=== PATIENT | female | born 1945 | race Caucasian/White ===

== ENCOUNTER 2023-05-27 00:24 | Inpatient (IN) ==
--- NOTE | 2023-05-27 00:28 | DR.AMS ---
HPI Time Seen Time Seen by Provider: 05/27/23 00:28 Complaint Cheif Complaint Doctors Comments: Patient was constipated and 2 days ago her relative gave her milk of magnesia for 2 days.Patient has had diarrhea for the past 3 days and today she was seeing things,thought she was in [facility]. Did not remember where her bathroom was.Patient has not been eating well,drinking enough fluids for the past 2-3 days.Patient denies: headache,chest pain,abdl pain,back pain. ROS Review of Systems Constitutional: No Symptoms Reported Eyes: No Symptoms Reported ENTM: No Symptoms Reported Respiratoy: No Symptoms Reported Cardiovascular: No Symptoms Reported Gastrointestinal/Abdominal: Constipation and Diarrhea; negative Vomiting Genitourinary: No Symptoms Reported Neurological: See HPI Musculoskeletal: No Symptoms Reported Integumentary: No Symptoms Reported Hematologic/Lymphatic: No Symptoms Reported Endocrine: No Symptoms Reported Psychiatric: No Symptoms Reported All Other Systems: Reviewed and Negative PE Vitals Vital Signs: Temp Pulse Resp BP Pulse Ox O2 Del Method 05/27/23 05:03 101 H 20 99 05/27/23 04:40 105 H 23 98 05/27/23 04:15 123/57 05/27/23 04:15 100 H 19 99 05/27/23 04:00 98 H 20 99 05/27/23 03:30 97 H 18 98 05/27/23 03:19 101 H 21 100 05/27/23 03:19 125/60 05/27/23 03:17 105 H 23 99 05/27/23 03:00 97 H 21 99 05/27/23 03:00 112/57 05/27/23 02:45 121/58 05/27/23 02:45 106 H 21 100 05/27/23 02:30 105/54 05/27/23 02:30 96 H 05/27/23 02:15 98 H 21 100 05/27/23 02:15 122/57 05/27/23 02:00 94 H 22 98 05/27/23 02:00 109/53 05/27/23 01:45 93 H 21 98 05/27/23 01:45 111/54 05/27/23 01:31 132 H 15 05/27/23 01:18 93 H 27 H 100 05/27/23 01:18 120/57 05/27/23 01:15 96 H 28 H 08/17/23 01:08 100 H 27 H 98 05/27/23 00:45 92 H 20 98 05/27/23 00:45 109/54 05/27/23 00:30 95 H 17 100 05/27/23 00:30 112/53 05/27/23 00:29 96 H 21 100 05/27/23 00:26 98.6 F 100 H 19 118/59 100 Room Air General Limitations: Language Barrier General Appearance: Alert Head Head Exam: Normal Inspection Eyes Eye exam: Normal Appearance ENT ENT Exam: Normal Exam External Ear Exam: Normal External Inspection Nose Exam: Normal Nose Exam Mouth Exam: Normal Inspection Throat Exam: Normal Inspection Neck Neck Exam: Normal Inspection Chest Chest Inspection: Normal Inspection Respiratory Respiratory Exam: Normal Lung Sounds Bilat Respiratory Exam: Bilateral: Clear to Auscultation Cardiovascular Cardiovascular Exam: Regular Rate and Normal Rhythm Abdominal Exam Abdominal Exam: Normal Inspection, Normal Bowel Sounds and Soft Extremities Extremities Exam: Normal Inspection Back Back Exam: Normal Inspection Neurological Neurological Exam: Alert, Oriented X3 and CN II-XII Intact Psychological Psychiatric Exam: Normal Affect and Normal Mood Skin Skin Exam: Warm, Dry, Intact and Normal Color MDM Differential Diagnosis Metabolic: Dehydration and Hyponatremia (hypokalemia) Infectious: UTI COURSE Treatment Treatment: Patient was brought to a monitored room and iv acess was established patient has CHANDRA and dehydration. She received NS 1500ml iv in the Ed. 05:[address] Holt( patient's Pcp). He has accepted her to his service for further evaluation.Patient's family is concerned because she has not been eating and drinking for the past few days. ROR Labs Reviewed Laboratory Results Reviewed?: Yes 05/27/23 01:16 05/27/23 01:16 Laboratory: WBC 18.7 X10^3/uL (3.6-10.0) H 05/27/23 01:16 RBC 3.99 X10^6/uL (3.5-5.4) 05/27/23 01:16 Hgb 11.1 g/dL (12.0-16.0) L 05/27/23 01:16 Hct 32.7 % (36.0-47.0) L 05/27/23 01:16 MCV 82.0 fL (80.0-100.0) 05/27/23 01:16 MCH 27.7 pg (27.0-34.0) 05/27/23 01:16 MCHC 33.8 g/dL (33.0-35.0) 05/27/23 01:16 RDW 14.9 % (11.6-16.5) 05/27/23 01:16 Plt Count 466 X10^3/uL (150.0-450.0) H 05/27/23 01:16 Plt Count Comment Increased (ADEQUATE) A 05/27/23 01:16 MPV 8.3 fL (7.4-11.0) 05/27/23 01:16 Neut % (Auto) 80.9 % (42.0-75.0) H 05/27/23 01:16 Lymph % (Auto) 9.1 % (21.0-51.0) L 05/27/23 01:16 Bates % (Auto) 9.5 % (0.0-13.0) 05/27/23 01:16 Eos % (Auto) 0.1 % (0.9-2.9) L 05/27/23 01:16 Baso % (Auto) 0.4 % (0.2-1.0) 05/27/23 01:16 Neut # (Auto) 15.2 x10^3/uL (2.2-4.8) H 05/27/23 01:16 Lymph # (Auto) 1.7 X10^3/uL (1.3-2.9) 05/27/23 01:16 Bates # (Auto) 1.8 x10^3/uL (0.3-0.8) H 05/27/23 01:16 Eos # (Auto) 0.0 x10^3/uL (0.0-0.2) 05/27/23 01:16 Baso # (Auto) 0.1 X10^3/uL (0.0-0.1) 05/27/23 01:16 Absolute Nucleated RBC 0.0 /100WBC 05/27/23 01:16 Total Counted 100 05/27/23 01:16 Neutrophils % (Manual) 85 % (39-76) H 05/27/23 01:16 Lymphocytes % (Manual) 4 % (13-43) L 05/27/23 01:16 Monocytes % (Manual) 11 % (4-9) H 05/27/23 01:16 Plt Morphology Comment Normal (NORMAL) 05/27/23 01:16 RBC Morphology Normal (NORMAL) 05/27/23 01:16 Sodium 132 mmol/L (136-145) L 05/27/23 01:16 Corrected Sodium TNP 05/27/23 01:16 Potassium 3.9 mmol/L (3.5-5.1) 05/27/23 01:16 Chloride 95 mmol/L (98-107) L 05/27/23 01:16 Carbon Dioxide 24.2 mmol/L (21-32) 05/27/23 01:16 BUN 49 mg/dL (7-18) H 05/27/23 01:16 Creatinine 2.17 mg/dL (0.55-1.02) H 05/27/23 01:16 Est GFR (MDRD) Af Amer 28 (>60) L 05/27/23 01:16 Est GFR (MDRD) Non-Af 23 (>60) L 05/27/23 01:16 Glucose 79 mg/dL (65-99) 05/27/23 01:16 Calcium 9.1 mg/dL (8.5-10.1) 05/27/23 01:16 Corrected Calcium TNP 05/27/23 01:16 Total Bilirubin 0.90 mg/dL (0.2-1.0) 05/27/23 01:16 AST 116 Units/L (15-37) H 05/27/23 01:16 ALT 18 Units/L (12-78) 05/27/23 01:16 Alkaline Phosphatase 101 Units/L (46-116) 05/27/23 01:16 Total Protein 7.0 g/dL (6.4-8.2) 05/27/23 01:16 Albumin 4.0 g/dL (3.4-5.0) 05/27/23 01:16 Globulin 3.0 g/dL (2.5-4.5) 05/27/23 01:16 Albumin/Globulin Ratio 1.3 Ratio (1.1-2.1) 05/27/23 01:16 Opioid Opioid Risk Tool Total: 0 Total Score Risk Category: Low Risk Copyright: Eyal TAYLOR predicting aberrant behaviors Discharge Plan Diagnosis Discharge Problem: CHANDRA (acute kidney injury), Acute dehydration Discharge Plan Patient Disposition: ADMITTED INPATIENT Condition: Stable Health Concerns: Post Hospitalization: new medications and changes needed to prevent readmission or further decline. Pt educated and given instructions on all concerns. Plan of Treatment: Continue with present treatment and follow up plan. Pt is to keep follow up appointment as instructed and take medications as ordered. Follow ups/Referrals Follow ups/Referrals: Blake Holt [Primary Care Provider] - 3 days Instructions Stand Alone Forms: Post Hospital Follow Up Care
[2023-05-27] MEDS ORDERED: NS 500 ML IV 500 ML IV ONE ×2 (01:05→01:06)
[2023-05-27 01:24] LABS: HEMOGLOBIN 11.1 g/dL (12.0-16.0); LYMPHOCYTES # (AUTO) 1.7 X10^3/uL (1.3-2.9); MONOCYTES # (AUTO) 1.8 x10^3/uL (0.3-0.8); NEUTROPHILS % (AUTO) 80.9 % (42.0-75.0)
[2023-05-27 01:40] LABS: ALANINE AMINOTRANSFERASE 18 Units/L (12-78); ALKALINE PHOSPHATASE 101 Units/L (46-116); ASPARTATE AMINO TRANSFERASE 116 Units/L (15-37); BLOOD UREA NITROGEN 49 mg/dL (7-18); CALCIUM 9.1 mg/dL (8.5-10.1); CARBON DIOXIDE 24.2 mmol/L (21-32); CHLORIDE 95 mmol/L (98-107); CREATININE 2.17 mg/dL (0.55-1.02); GLUCOSE 79 mg/dL (65-99); POTASSIUM 3.9 mmol/L (3.5-5.1); SODIUM 132 mmol/L (136-145); eGFR NON BLACK RACES 23 (>60)
[2023-05-27 01:41] LABS: BASOPHILS # (AUTO) 0.1 X10^3/uL (0.0-0.1); BASOPHILS % (AUTO) 0.4 % (0.2-1.0); EOSINOPHILS % (AUTO) 0.1 % (0.9-2.9); HEMATOCRIT 32.7 % (36.0-47.0); LYMPHOCYTES % (AUTO) 9.1 % (21.0-51.0); MEAN CORPUSCULAR HEMOGLOBIN 27.7 pg (27.0-34.0); MEAN CORPUSCULAR HGB CONC 33.8 g/dL (33.0-35.0); MEAN PLATELET VOLUME 8.3 fL (7.4-11.0); MONOCYTES % (AUTO) 9.5 % (0.0-13.0); NEUTROPHILS # (AUTO) 15.2 x10^3/uL (2.2-4.8); PLATELET COUNT 466 X10^3/uL (150.0-450.0); RED BLOOD COUNT 3.99 X10^6/uL (3.5-5.4); RED CELL DISTRIBUTION WIDTH 14.9 % (11.6-16.5); WHITE BLOOD COUNT 18.7 X10^3/uL (3.6-10.0)
[2023-05-27 01:56] LABS: PLATELET MORPHOLOGY COMMENT NORMAL (NORMAL)
[2023-05-27] MEDS ORDERED: NS 1,000 ML IV 1,000 ML ONE (02:00)
[2023-05-27] MEDS ORDERED: NS 1,000 ML IV 1,000 ML IV ONE (02:00)
[2023-05-27] MEDS: NS 1,000 ML IV 1,000 ML IV SCH (07:39)
[2023-05-27 09:14] LABS: BILIRUBIN,URINE NEGATIVE (NEGATIVE); BLOOD/HEMOGLOBIN,URINE 3+ (NEGATIVE); GLUCOSE, URINE NEGATIVE (NEGATIVE); KETONES,URINE 2+ (NEGATIVE); LEUKOCYTE ESTERASE ,URINE NEGATIVE (NEGATIVE); NITRITES,URINE NEGATIVE (NEGATIVE); PROTEIN,URINE 3+ (NEGATIVE); UROBILINOGEN,URINE NORMAL (NORMAL)
[2023-05-27 09:15] LABS: APPEARANCE,URINE SLIGHTLY HAZY (CLEAR); COLOR,URINE YELLOW (YELLOW)
[2023-05-27 09:24] LABS: BACTERIA,URINE TRACE /HPF (NEGATIVE); GRANULAR CASTS,URINE FEW /LPF (NEGATIVE); HYALINE CASTS, URINE MODERATE /LPF (NEGATIVE); RBC,URINE 0-2 /HPF (0-3); SQUAMOUS EPITHELIAL CELL,UR RARE /HPF (NEGATIVE)
[2023-05-27] MEDS: LOVENOX INJ 30 MG SYR SC SCH (10:17)
[2023-05-27] MEDS: CIPRO IV 400 MG PREMIX* 400 MG/200 ML IV.SOLN. IV SCH (11:06)
[2023-05-27] MEDS: FLAGYL IV PREMIX 500 MG BAG 500 MG/100 ML BAG IV SCH ×2 (13:22→21:36)
[2023-05-27] MEDS: PROTONIX INJ 40 MG VIAL IVP SCH ×2 (14:29→20:46)
[2023-05-27] MEDS: PEPCID 20 MG VIAL 20 MG in NS 50 ML IV 50 ML IV SCH (14:29)
[2023-05-27] MEDS: MIRALAX POWDER (1 DOSE 17 G) PO SCH (19:03)
--- NOTE | 2023-05-27 19:14 | DR.H&P ---
H&P - History & Physical for Day of: H&P Date: 05/27/23 - Chief Complaint Chief Complaint: WEAKNESS, DIARRHEA, DECREASED APPETITE, WEAKNESS, AMS - History of Present Illness History of Present Illness: IS A 77 YEAR OLD PATIENT OF OURS. SHE HAS A PMH OF ESSENTIAL TREMORS, HYPERLIPIDEMIA, HTN, FIBROMYALGIA, ANXIETY, C- SECTION, AND HYSTERECTOMY. SHE PRESENTED TO THE ER WITH COMPLAINTS OF DIARRHEA, DECREASED APPETITE, WEAKNESS, AND ALTERED MENTAL STATUS FOR THE PAST 2-3 DAYS. SHE REPORTS THAT PRIOR TO THE DIARRHEA, SHE WAS CONSTIPATED. SHE TOOK MILK OF MAGNESIA AND HAS HAD DIARRHEA SINCE THEN. SHE DENIES HEADACHE, CHEST PAIN, ABD OMINAL PAIN, OR BACK PAIN. ON ARRIVAL TO THE ER, HER VITALS WERE: 98.5-260-76-100%-118/59. LABS WERE OBTAINED. WBC 18.7, RBC 3.99, HGB 11.1, HCT 32.7, PLT COUNT 466, SODIUM 132, POTASSIUM 3.9, CHLORIDE 95, CARBON DIOXIDE 24.2, BUN 49, CREATININE 2.17, GLUCOSE 79, CALCIUM 9.1, TOTAL BILI 0.90, AST 116, ALT 18, ALK PHOS 101, TOTAL PROTEIN 7.0, ALBUMIN 4.0. URINALYSIS WAS OBTAINED AND REVEALED: WBC 0-2, RBC 0-2, BACTERIA TRACE, LEUKOCYTES NEGATIVE. STOOL IS POSITIVE FOR WHITE CELLS AND H.PYLORI. CDIFF AND OCCULT BLOOD ARE NEGATIVE. STOOL CULTURE WAS SET UP. IN THE ER, SHE WAS GIVEN A NORMAL SALINE BOLUS X 2 LITERS. SHE WAS ADMITTED TO THE HOSPITAL FOR FURTHER EVALUATION AND TREATMENT OF ACUTE KIDNEY INJURY, LEUKOCYTOSIS, INTRACTABLE DIARRHEA, H.PYLORI. SHE WAS STARTED ON NORMAL SALINE AT 75 ML/HR, CIPRO 400MG IV DAILY, FLAGYL 500MG IV TID, PROTONIX 40MG IV BID, FAMOTIDINE 20MG DAILY, LOVENOX 30MG DAILY. WE WILL CHECK AN ABDOMINAL SERIES. WE WILL REVIEW HER HOME MEDICATIONS WHEN THEY ARE A VAILABLE TO US. OTHERWISE, WE WILL FOLLOW UP WITH AM LABS AND CONTINUE TO MONITOR. TIME SPENT ON CLINICAL ASSESSMENT, REVIEWING LABS AND IMAGING, DECISION MAKING, AND DOCUMENTATION GREATER THAN 75 MINUTES. - Past Medical History Past Medical History: Anxiety, Dyslipidemia, Hypertension Additional Medical History: ESSENTIAL TREMORS, FIBROMYALGIA - Past Surgical History Surgical History: , Hysterectomy - Family History Family Medical History: Cancer, Hypertension - Social History Does patient currently use any type of tobacco product: No Have you used tobacco products in the last 12 months: No Type of Tobacco Use: None Does any household member use tobacco: No Alcohol Use: None Drug Use: None - Review of Systems Constitutional: Weakness. denies: Fever, Chills Eyes: No Symptoms Reported ENT: No Symptoms Reported Respiratory: Cough Cardiovascular: No Symptoms Reported Gastrointestinal: See HPI, Diarrhea, Constipation. denies: Nausea, Vomiting, Abdominal Pain, Melena, Hematochezia Genitourinary: No Symptoms Reported Musculoskeletal: No Symptoms Reported Skin: No Symptoms Reported Neurological: Weakness - Physical Exam Vital Signs: Vital Signs Temperature 98 F Pulse Rate [Left Brachial] 92 Respiratory Rate 18 Blood Pressure [Left Arm] 94/47 Oriented: Normal Eyes: Normal Ear: Normal Nose: Normal Throat: Normal Respiratory: Diminished Throughout Cardiovascular: Normal : Normal Auscultation: Bowel Sounds: Normal Palpation: Normal Tenderness: Normal Skin: Normal Musculoskeletal: Normal Psychiatric: Normal Mood Description: Calm Affect: Normal Speech Pattern: Clear - Assessment/Plan (1) CHANDRA (acute kidney injury) Status: Acute Plan: ADMIT, NORMAL SALINE AT 75 ML/HR, CIPRO 400MG IV DAILY, FLAGYL 500MG IV TID, PROTONIX 40MG IV BID, FAMOTIDINE 20MG DAILY, LOVENOX 30MG DAILY. REVIEW HOME MEDS (2) Acute dehydration Status: Acute (3) Leukocytosis Qualifiers: Leukocytosis type: unspecified Qualified Code(s): D72.829 - Elevated white blood cell count, unspecified Status: Acute (4) Intractable diarrhea Status: Acute Plan: STOOL CULTURES PENDING (5) H. pylori infection Status: Acute Plan: PEPCID IV DAILY, PROTONIX IV BID (6) Altered mental status Qualifiers: Altered mental status type: transient alteration of awareness Qualified Code(s): R40.4 - Transient alteration of awareness Status: Acute (7) Generalized weakness Status: Acute (8) HTN (hypertension) Qualifiers: Hypertension type: primary hypertension Qualified Code(s): I10 - Essential (primary) hypertension Status: Chronic Plan: STABLE. CONTINUE TO MONITOR (9) Hyperlipidemia Qualifiers: Hyperlipidemia type: mixed hyperlipidemia Qualified Code(s): E78.2 - Mixed hyperlipidemia Status: Chronic (10) Anxiety Status: Chronic - Allergies Allergies/Adverse Reactions: Allergies Allergy/AdvReac Type Severity Reaction Status Date / Time No Known Allergies Allergy Verified 05/27/23 01:12
--- NOTE | 2023-05-27 19:38 | RAD ---
HISTORYPT C/O ABDOMINAL PAINSTUDYACUTE ABDOMEN SERIESCOMPARISONNone.TECHNIQUEA single frontal view of the chest and supine and upright views of the abdomen were obtained.FINDINGSThere is mild cardiomegaly. The tracheobronchial tree is unremarkable. The lungs are clear. The osseous structures within the chest are intact.There is a nonobstructive, nonspecific bowel gas pattern. There is no free air under the hemidiaphragms. There is peripheral atherosclerotic changes noted in the left upper quadrant suggestive of a prominent splenic artery aneurysm measuring approximately 1.2 cm.There are surgical clips seen within the right hemipelvis.There is rotatory mild dextroscoliosis of the mid to upper lumbar spine. 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
[2023-05-27] MEDS: COLACE CAP 100 MG PO SCH ×2 (20:46→20:47)
[2023-05-27] MEDS ORDERED: PATIENT'S HOME MEDICATION (Alprazolam 0.5 mg tablet) PO PRN (21:15)
--- NOTE | 2023-05-27 21:22 | CT ---
HISTORYAMSSTUDYBRAIN W/O CONCOMPARISONNone available.TECHNIQUEAxial non-contrast images of the head were obtained with coronal and sagittal reformats provided.Radiation dose: 870.14 mGy-cm total DLPFINDINGSNo abnormal areas of acute attenuation in the brain parenchyma.Cabrera-white differentiation remains intact.No intracranial, extra-axial, fluid collection.No hemorrhage.Periventricular chronic microvascular disease.No mass effect or midline shift.Incidental meningioma in the posterior right parietal region measuring 1.25 x 1 cm.Age related brain parenchymal global atrophy.No ventriculomegaly.No acute fracture.Sinuses are well aerated.Mastoid air cells are well aerated.Globes and intra-orbital contents are unremarkable.IMPRESSIONNo acute intracranial abnormality identified.Electronically signed by: Stiven Carrillo (May 27, 2023 21:20:52)
[2023-05-27] MEDS ORDERED: XANAX PO SCH (22:00)
[2023-05-28] MEDS: CRESTOR TAB 10 MG PO SCH ×2 (00:49→21:10)
[2023-05-28] MEDS: MIRAPEX TAB 0.25 MG PO SCH ×2 (00:49→21:10)
[2023-05-28] MEDS: REQUIP PO SCH ×3 (00:49→21:09)
[2023-05-28] MEDS: SINEMET CR 50/200 MG PO SCH ×5 (00:49→21:09)
[2023-05-28] MEDS: NS 1,000 ML IV 1,000 ML IV SCH (00:55)
[2023-05-28] MEDS: FLAGYL IV PREMIX 500 MG BAG 500 MG/100 ML BAG IV SCH ×3 (05:46→21:10)
[2023-05-28 06:14] LABS: BASOPHILS # (AUTO) 0.1 X10^3/uL (0.0-0.1); BASOPHILS % (AUTO) 0.9 % (0.2-1.0); EOSINOPHILS % (AUTO) 0.2 % (0.9-2.9); HEMATOCRIT 26.5 % (36.0-47.0); HEMOGLOBIN 8.8 g/dL (12.0-16.0); LYMPHOCYTES # (AUTO) 3.1 X10^3/uL (1.3-2.9); LYMPHOCYTES % (AUTO) 24.8 % (21.0-51.0); MEAN CORPUSCULAR HEMOGLOBIN 27.6 pg (27.0-34.0); MEAN CORPUSCULAR HGB CONC 33.4 g/dL (33.0-35.0); MEAN CORPUSCULAR VOLUME 82.6 fL (80.0-100.0); MONOCYTES # (AUTO) 1.8 x10^3/uL (0.3-0.8); MONOCYTES % (AUTO) 14.1 % (0.0-13.0); NEUTROPHILS # (AUTO) 7.6 x10^3/uL (2.2-4.8); PLATELET COUNT 365 X10^3/uL (150.0-450.0); RED CELL DISTRIBUTION WIDTH 14.7 % (11.6-16.5); WHITE BLOOD COUNT 12.6 X10^3/uL (3.6-10.0)
[2023-05-28 06:34] LABS: ALANINE AMINOTRANSFERASE 7 Units/L (12-78); ALBUMIN 2.8 g/dL (3.4-5.0); ALKALINE PHOSPHATASE 77 Units/L (46-116); ASPARTATE AMINO TRANSFERASE 70 Units/L (15-37); BLOOD UREA NITROGEN 37 mg/dL (7-18); CALCIUM 7.8 mg/dL (8.5-10.1); CARBON DIOXIDE 25.2 mmol/L (21-32); CHLORIDE 101 mmol/L (98-107); COR CA(FOR HYPOALB) 8.8 mg/dL (8.5-10.1); CREATININE 1.55 mg/dL (0.55-1.02); GLUCOSE 104 mg/dL (65-99); POTASSIUM 3.2 mmol/L (3.5-5.1); SODIUM 135 mmol/L (136-145); TOTAL PROTEIN 5.3 g/dL (6.4-8.2); eGFR NON BLACK RACES 35 (>60)
[2023-05-28] MEDS ORDERED: CONSULT PHARMACY - POTASSIUM & MAGNESIUM XX SCH (08:00)
[2023-05-28] MEDS: LOVENOX INJ 30 MG SYR SC SCH (09:23)
[2023-05-28] MEDS: PLAQUENIL PO SCH ×2 (09:24→21:09)
[2023-05-28] MEDS: COLACE CAP 100 MG PO SCH ×2 (09:24→11:55)
[2023-05-28] MEDS: PROTONIX INJ 40 MG VIAL IVP SCH ×2 (09:24→21:14)
[2023-05-28] MEDS: PEPCID 20 MG VIAL 20 MG in NS 50 ML IV 50 ML IV SCH (09:24)
[2023-05-28] MEDS: MIRALAX POWDER (1 DOSE 17 G) PO SCH (09:25)
[2023-05-28] MEDS: CIPRO IV 400 MG PREMIX* 400 MG/200 ML IV.SOLN. IV SCH (09:25)
[2023-05-28] MEDS: K-DUR TAB 20 MEQ PO SCH ×2 (09:36→12:24)
[2023-05-28] MEDS ORDERED: NS + KCL 20 MEQ/L 1,000 ML IV SCH (10:00)
[2023-05-28] MEDS ORDERED: XYLOCAINE OINT 5% TOP PRN (10:09)
[2023-05-28] MEDS ORDERED: TUCKS MEDICATED PAD TOP PRN (10:09)
[2023-05-28] MEDS ORDERED: PREPARATION H OINT RECTAL PRN (10:11)
[2023-05-28 10:31] VITALS: BMI 20.4
[2023-05-28] MEDS ORDERED: PHARMACY CONSULT - TPN XX SCH (11:00)
[2023-05-28] MEDS: NS + KCL 20 MEQ/L 1,000 ML IV SCH (11:59)
[2023-05-28] MEDS: ALBUMIN HUMAN 25%- 100 ML 100 ML IV SCH (12:23)
[2023-05-28] MEDS: CLINIMIX 4.25%-5% 1,000 ML with MVI INJ (ADULT) 10 ML IV SCH ×2 (12:24)
[2023-05-28] MEDS: XANAX PO PRN (12:24)
--- NOTE | 2023-05-28 13:20 | PCM.PROG ---
Progress Note - Progress Note for Day of Date of Exam: 05/28/23 - Subjective Subjective: IS CURRENTLY INPATIENT STATUS FOR TREATMENT OF ACUTE KIDNEY INJURY, DEHYDRATION, LEUKOCYTOSIS, INTRACTABLE DIARRHEA, H.PYLORI, AMS, AND GENERALIZED WEAKNESS. SHE HAS A PMH OF ESSENTIAL TREMORS, HYPERLIPIDEMIA, HTN, FIBROMYALGIA, ANXIETY, , AND HYSTERECTOMY. TODAY, SHE IS ALERT AND ORIENTED, LYING IN BED ON MORNING ROUNDS. SHE CONTINUES WITH WEAKNESS AND LOOSE STOOLS, BUT DOES ADMIT TO SLIGHT IMPROVEMENT IN SYMPTOMS SINCE ADMISSION. ON EXAMINATION, HEART IS REGULAR IN RATE AND RHYTHM. BILATERAL LUNGS ARE NOTED WITH DIMINISHED LUNG SOUNDS THROUGHOUT. ABDOMEN IS FLAT, SOFT, AND NON-TENDER WITH NORMAL BOWEL SOUNDS NOTED IN ALL QUADRANTS. GOOD RANGE OF MOTION NOTED TO UPPER AND LOWER EXTREMITIES WITH NO EDEMA NOTED. PATIENT DOES COMPLAIN OF PAIN FROM HEMORRHOIDS. SHE HAD VISITORS IN THE ROOM, THEREFORE, EXAMINATION OF HEMORRHOIDS WAS DEFERRED AT THAT TIME. HER VITALS THIS MORNING WERE: 98.1-89-18-96%-99/53. LABS WERE OBTAINED. WBC 12.6, RBC 3.20, HGB 8.8, HCT 26.5, PLT COUNT 365, SODIUM 135, POTASSIUM 3.2, CHLORIDE 101, BUN 37, CREATININE 1.55, GLUCOSE 104, CALCIUM 7.8, TOTAL BILI 0.5, AST 70, ALT 7, ALK PHOS 77, MAGNESIUM 2.5, CRP 33.10, TOTAL PROTEIN 5.3, ALBUMIN 2.8. STOOL AND BLOOD CULTURES ARE PENDING. AN ABDOMINAL SERIES WAS OBTAINED YESTERDAY AND REVEALED: There is mild cardiomegaly. The tracheobronchial tree is unremarkable. The lungs are clear. The osseous structures within the chest are intact. There is a nonobstructive, nonspecific bowel gas pattern. There is no free air under the hemidiaphragms. There is peripheral atherosclerotic changes noted in the left upper quadrant suggestive of a prominent splenic artery aneurysm measuring approximately 1.2 cm. There are surgical clips seen within the right hemipelvis. There is rotatory mild dext roscoliosis of the mid to upper lumbar spine. Marginal osteophyte formation of the upper lumbar spine is seen. BRAIN CT WITHOUT CONTRAST WAS OBTAINED AND WAS NEGATIVE FOR ACUTE INTRACRANIAL ABNORMALITY. SHE IS CURRENTLY RECEIVING NORMAL SALINE AT 75 ML/HR, CIPRO 400MG IV DAILY, FLAGYL 500MG IV TID, PROTONIX 40MG IV BID, FAMOTIDINE 20MG DAILY, LOVENOX 30MG DAILY. HER HOME MEDICATIONS OF XANAX, SINEMET, COLACE, PLAQUENIL, MIRAPEX, REQUIP, AND CRESTOR WERE RESUMED. TODAY, WE WILL CHANGE HER IV FLUIDS TO NORMAL SALINE WITH 40 MEQ KCL AT 40 ML/HR, ADD TPN, ALBUMIN 25% IV DAILY, AND A COMBINATION OF TUCKS PADS WITH PREPARATION H AND LIDOCAINE OINTMENT FIVE TIMES A DAY NEEDED FOR HEMORRHOIDAL PAIN. WE MAY LOOK AT HAVING HER SCOPED NEXT WEEK IF SYMPTOMS PERSIST. OTHERWISE, WE WILL CONTINUE WITH CURRENT PLAN OF CARE. WE PLAN TO FOLLOW UP WITH AM LABS AND CONTINUE TO MONITOR. TIME SPENT ON CLINICAL ASSESSMENT, REVIEWING LABS AND IMAGING, DECISION MAKING, AND DOCUMENTATION GREATER THAN 45 MINUTES. - Past Medical Family Social History Past Med/Fam/Surg Hx: No changes since H&P Allergies: Allergies No Known Allergies Allergy (Verified 05/27/23 01:12) - Review of Systems ROS: No change since H&P - Vital Signs and I&O's Vital Signs: Vital Signs Temperature 98.5 F Temperature 98.1 F Pulse Rate [Left Brachial] 87 Pulse Rate [Left Brachial] 89 Respiratory Rate 20 Respiratory Rate 18 Blood Pressure [Left Arm] 97/53 Blood Pressure [Left Arm] 99/53 O2 Sat by Pulse Oximetry 96 O2 Sat by Pulse Oximetry 96 Intake and Output: Intake & Output 05/26/23 05/27/23 05/28/23 05/29/23 11:59 11:59 11:59 11:59 Intake Total 1793 / 1793 Balance 1793 / 1793 - Physical Exam Oriented: Normal Eyes: Normal Ear: Normal Nose: Normal Throat: Normal Respiratory: Diminished Cardiovascular: Normal : Normal Auscultation: Bowel Sounds: Normal Palpation: Normal Tenderness: Normal Skin: Normal Musculoskeletal: Normal Psychiatric: Normal Mood Description: Calm Affect: Normal Speech Pattern: Clear, Appropriate - Laboratory and Diagnostics Result Diagrams: 05/28/23 05:12 05/28/23 05:12 Labs: 05/27/23 10:46 Stool Stool Culture - Preliminary 05/27/23 10:46 Stool - Final Laboratory WBC 12.6 X10^3/uL (3.6-10.0) H 05/28/23 05:12 RBC 3.20 X10^6/uL (3.5-5.4) L 05/28/23 05:12 Hgb 8.8 g/dL (12.0-16.0) L D 05/28/23 05:12 Hct 26.5 % (36.0-47.0) L 05/28/23 05:12 MCV 82.6 fL (80.0-100.0) 05/28/23 05:12 MCH 27.6 pg (27.0-34.0) 05/28/23 05:12 MCHC 33.4 g/dL (33.0-35.0) 05/28/23 05:12 RDW 14.7 % (11.6-16.5) 05/28/23 05:12 Plt Count 365 X10^3/uL (150.0-450.0) 05/28/23 05:12 Plt Count Comment Increased (ADEQUATE) A 05/27/23 01:16 MPV 9.0 fL (7.4-11.0) 05/28/23 05:12 Neut % (Auto) 60.0 % (42.0-75.0) 05/28/23 05:12 Lymph % (Auto) 24.8 % (21.0-51.0) 05/28/23 05:12 [place] % (Auto) 14.1 % (0.0-13.0) H 05/28/23 05:12 Eos % (Auto) 0.2 % (0.9-2.9) L 05/28/23 05:12 Baso % (Auto) 0.9 % (0.2-1.0) 05/28/23 05:12 Neut # (Auto) 7.6 x10^3/uL (2.2-4.8) H 05/28/23 05:12 Lymph # (Auto) 3.1 X10^3/uL (1.3-2.9) H 05/28/23 05:12 [place] # (Auto) 1.8 x10^3/uL (0.3-0.8) H 05/28/23 05:12 Eos # (Auto) 0.0 x10^3/uL (0.0-0.2) 05/28/23 05:12 Baso # (Auto) 0.1 X10^3/uL (0.0-0.1) 05/28/23 05:12 Absolute Nucleated RBC 0.0 /100WBC 05/28/23 05:12 Total Counted 100 05/27/23 01:16 Neutrophils % (Manual) 85 % (39-76) H 05/27/23 01:16 Lymphocytes % (Manual) 4 % (13-43) L 05/27/23 01:16 Monocytes % (Manual) 11 % (4-9) H 05/27/23 01:16 Plt Morphology Comment Normal (NORMAL) 05/27/23 01:16 RBC Morphology Normal (NORMAL) 05/27/23 01:16 ESR 2 MM/HOUR (0-20) 05/28/23 10:25 Sodium 135 mmol/L (136-145) L 05/28/23 05:12 Corrected Sodium TNP 05/28/23 05:12 Potassium 3.2 mmol/L (3.5-5.1) L 05/28/23 05:12 Chloride 101 mmol/L (98-107) 05/28/23 05:12 Carbon Dioxide 25.2 mmol/L (21-32) 05/28/23 05:12 BUN 37 mg/dL (7-18) H 05/28/23 05:12 Creatinine 1.55 mg/dL (0.55-1.02) H 05/28/23 05:12 Est GFR (MDRD) Af Amer 42 (>60) L 05/28/23 05:12 Est GFR (MDRD) Non-Af 35 (>60) L 05/28/23 05:12 Glucose 104 mg/dL (65-99) H 05/28/23 05:12 Lactic Acid 1.0 mmol/L (0.4-2.0) 05/27/23 19:45 Calcium 7.8 mg/dL (8.5-10.1) L 05/28/23 05:12 Corrected Calcium 8.8 mg/dL (8.5-10.1) 05/28/23 05:12 Magnesium 2.5 mg/dL (2.0-2.9) 05/28/23 05:12 Total Bilirubin 0.50 mg/dL (0.2-1.0) 05/28/23 05:12 AST 70 Units/L (15-37) H 05/28/23 05:12 ALT 7 Units/L (12-78) L 05/28/23 05:12 Alkaline Phosphatase 77 Units/L (46-116) 05/28/23 05:12 C-Reactive Protein 33.10 mg/L (0-3.0) H 05/28/23 05:12 Total Protein 5.3 g/dL (6.4-8.2) L 05/28/23 05:12 Albumin 2.8 g/dL (3.4-5.0) L 05/28/23 05:12 Globulin 2.5 g/dL (2.5-4.5) 05/28/23 05:12 Albumin/Globulin Ratio 1.1 Ratio (1.1-2.1) 05/28/23 05:12 Specimen Type Clean catch urine 05/27/23 08:25 Urine Color Yellow (YELLOW) 05/27/23 08:25 Urine Appearance Slightly hazy (CLEAR) 05/27/23 08:25 Urine pH 6.0 (5.0 - 8.0) 05/27/23 08:25 Ur Specific [place] 1.025 (1.000-1.030) 05/27/23 08:25 Urine Protein 3+ (NEGATIVE) 05/27/23 08:25 Urine Glucose (UA) Negative (NEGATIVE) 05/27/23 08:25 Urine Ketones 2+ (NEGATIVE) 05/27/23 08:25 Urine Blood 3+ (NEGATIVE) 05/27/23 08:25 Urine Nitrite Negative (NEGATIVE) 05/27/23 08:25 Urine Bilirubin Negative (NEGATIVE) 05/27/23 08:25 Urine Urobilinogen Normal (NORMAL) 05/27/23 08:25 Ur Leukocyte Esterase Negative (NEGATIVE) 05/27/23 08:25 Urine RBC 0-2 /HPF (0-3) 05/27/23 08:25 Urine WBC 0-2 /HPF (0-5) 05/27/23 08:25 Ur Squamous Epith Cells Rare /HPF (NEGATIVE) 05/27/23 08:25 Urine Bacteria Trace /HPF (NEGATIVE) 05/27/23 08:25 Hyaline Casts Moderate /LPF (NEGATIVE) 05/27/23 08:25 Granular Casts Few /LPF (NEGATIVE) 05/27/23 08:25 Urine Mucus Rare /HPF (NEGATIVE) 05/27/23 08:25 Ur Culture Indicated? No/not indicated 05/27/23 08:25 Stl Occult Blood (IFOB) Negative (NEGATIVE) 05/27/23 10:46 Stool for White Cells Positive (NEGATIVE) A 05/27/23 10:46 Stl C. diff Tox B Gene Negative (NEGATIVE) 05/27/23 10:46 Stl C. diff [id number] Presumptive negative (NEGATIVE) 05/27/23 10:46 Stool H. pylori Ag Positive (NEGATIVE) A 05/27/23 10:46 - Plan (1) CHANDRA (acute kidney injury) Status: Acute Plan: NORMAL SALINE WITH 40MEQ KCL AT 40 ML/HR, TPN AT 40 ML/HR, ALBUMIN 25% IV DAILY, CIPRO 400MG IV DAILY, FLAGYL 500MG IV TID, PROTONIX 40MG IV BID, FAMOTIDINE 20MG DAILY, LOVENOX 30MG DAILY. REVIEW HOME MEDS (2) Acute dehydration Status: Acute (3) Leukocytosis Status: Acute Qualifiers: Leukocytosis type: unspecified Qualified Code(s): D72.829 - Elevated white blood cell count, unspecified (4) Intractable diarrhea Status: Acute Plan: STOOL CULTURES PENDING (5) H. pylori infection Status: Acute Plan: PEPCID IV DAILY, PROTONIX IV BID (6) Altered mental status Status: Acute Qualifiers: Altered mental status type: transient alteration of awareness Qualified Code(s): R40.4 - Transient alteration of awareness (7) Generalized weakness Status: Acute (8) HTN (hypertension) Status: Chronic Qualifiers: Hypertension type: primary hypertension Qualified Code(s): I10 - Essential (primary) hypertension Plan: STABLE. CONTINUE TO MONITOR (9) Hyperlipidemia Status: Chronic Qualifiers: Hyperlipidemia type: mixed hyperlipidemia Qualified Code(s): E78.2 - Mixed hyperlipidemia (10) Anxiety Status: Chronic
[2023-05-29] MEDS: NS + KCL 20 MEQ/L 1,000 ML IV SCH ×2 (05:00→12:36)
[2023-05-29] MEDS: FLAGYL IV PREMIX 500 MG BAG 500 MG/100 ML BAG IV SCH ×3 (05:00→21:40)
[2023-05-29 06:46] LABS: BASOPHILS # (AUTO) 0.1 X10^3/uL (0.0-0.1); EOSINOPHILS # (AUTO) 0.2 x10^3/uL (0.0-0.2); EOSINOPHILS % (AUTO) 1.1 % (0.9-2.9); HEMATOCRIT 26.7 % (36.0-47.0); HEMOGLOBIN 8.7 g/dL (12.0-16.0); LYMPHOCYTES # (AUTO) 2.6 X10^3/uL (1.3-2.9); LYMPHOCYTES % (AUTO) 17.4 % (21.0-51.0); MEAN CORPUSCULAR HEMOGLOBIN 27.3 pg (27.0-34.0); MEAN CORPUSCULAR HGB CONC 32.8 g/dL (33.0-35.0); MEAN CORPUSCULAR VOLUME 83.3 fL (80.0-100.0); MEAN PLATELET VOLUME 9.5 fL (7.4-11.0); MONOCYTES # (AUTO) 1.9 x10^3/uL (0.3-0.8); MONOCYTES % (AUTO) 12.8 % (0.0-13.0); NEUTROPHILS % (AUTO) 67.7 % (42.0-75.0); PLATELET COUNT 335 X10^3/uL (150.0-450.0); RED CELL DISTRIBUTION WIDTH 15.2 % (11.6-16.5); WHITE BLOOD COUNT 14.8 X10^3/uL (3.6-10.0)
[2023-05-29 07:03] LABS: ALANINE AMINOTRANSFERASE < 6 Units/L (12-78); ALKALINE PHOSPHATASE 72 Units/L (46-116); ASPARTATE AMINO TRANSFERASE 59 Units/L (15-37); BLOOD UREA NITROGEN 33 mg/dL (7-18); CALCIUM 7.9 mg/dL (8.5-10.1); CARBON DIOXIDE 25.2 mmol/L (21-32); CHLORIDE 103 mmol/L (98-107); COR CA(FOR HYPOALB) 8.7 mg/dL (8.5-10.1); COR NA(FOR HYPERGLY) 135 mmol/L (136-145); CREATININE 1.37 mg/dL (0.55-1.02); GLUCOSE 115 mg/dL (65-99); POTASSIUM 3.5 mmol/L (3.5-5.1); SODIUM 135 mmol/L (136-145); TOTAL PROTEIN 5.5 g/dL (6.4-8.2); eGFR NON BLACK RACES 40 (>60)
[2023-05-29] MEDS: LOVENOX INJ 30 MG SYR SC SCH (09:37)
[2023-05-29] MEDS: REQUIP PO SCH ×2 (09:38→20:36)
[2023-05-29] MEDS: PROTONIX INJ 40 MG VIAL IVP SCH ×2 (09:38→20:36)
[2023-05-29] MEDS: CIPRO IV 400 MG PREMIX* 400 MG/200 ML IV.SOLN. IV SCH (09:38)
[2023-05-29] MEDS: ALBUMIN HUMAN 25%- 100 ML 100 ML IV SCH (09:38)
[2023-05-29] MEDS: PLAQUENIL PO SCH ×2 (09:38→20:36)
[2023-05-29] MEDS: PEPCID 20 MG VIAL 20 MG in NS 50 ML IV 50 ML IV SCH (09:38)
[2023-05-29] MEDS: SINEMET CR 50/200 MG PO SCH ×4 (09:50→20:36)
[2023-05-29] MEDS: XANAX PO PRN ×2 (09:52→20:37)
--- NOTE | 2023-05-29 12:04 | PCM.PROG ---
Progress Note Progress Note for Day of Date of Exam: 05/29/23 Subjective Subjective: Patient seen at bedside, no acute events overnight. She is currently being treated for dehydration, CHANDRA and H Pylori infection. She reports her diarrhea has improved, last BM last night. She has been able to tolerate PO intake. Denies N/V. She has been ambulating to the bathroom. Labs/imaging - Hgb 8.7 BUN/Cr 33/1.37 Plan: Continue IV antibiotics, pepcid and protonix. Continue hydration. Advance diet as tolerated. Anti-emetics prn. Monitor renal function. Ambulate as tolerated. Monitor AM labs/imaging. Past Medical Family Social History Past Med/Fam/Surg Hx: No changes since H&P Allergies: Allergies No Known Allergies Allergy (Verified 05/27/23 01:12) Review of Systems ROS: No change since H&P Vital Signs and I&O's Vital Signs: Vital Signs Temperature 98.3 F Temperature 98.7 F Pulse Rate [Left Brachial] 82 Pulse Rate [Left Brachial] 82 Respiratory Rate 20 Respiratory Rate 18 Blood Pressure [Left Arm] 95/54 Blood Pressure [Left Arm] 93/54 O2 Sat by Pulse Oximetry 94 O2 Sat by Pulse Oximetry 91 Intake and Output: Intake & Output 05/26/23 05/27/23 05/28/23 05/29/23 23:59 23:59 23:59 23:59 Intake Total 1449 / 1449 3349 / 3349 1727 / 1727 Balance 1449 / 1449 3349 / 3349 1727 / 1727 Physical Exam Oriented: Normal Eyes: Normal Ear: Normal Nose: Normal Throat: Normal Respiratory: Diminished Cardiovascular: Normal Auscultation: Bowel Sounds: Normal Tenderness: Normal Skin: Normal Musculoskeletal: Normal Psychiatric: Normal Mood Description: Calm Affect: Normal Speech Pattern: Clear and Appropriate Laboratory and Diagnostics 05/29/23 05:44 05/29/23 05:44 Labs: 05/27/23 19:45 Blood Blood Culture - Preliminary 05/27/23 19:40 Blood Blood Culture - Preliminary 05/27/23 10:46 Stool Stool Culture - Final 05/27/23 10:46 Stool - Final Laboratory WBC 14.8 X10^3/uL (3.6-10.0) H 05/29/23 05:44 RBC 3.20 X10^6/uL (3.5-5.4) L 05/29/23 05:44 Hgb 8.7 g/dL (12.0-16.0) L 05/29/23 05:44 Hct 26.7 % (36.0-47.0) L 05/29/23 05:44 MCV 83.3 fL (80.0-100.0) 05/29/23 05:44 MCH 27.3 pg (27.0-34.0) 05/29/23 05:44 MCHC 32.8 g/dL (33.0-35.0) L 05/29/23 05:44 RDW 15.2 % (11.6-16.5) 05/29/23 05:44 Plt Count 335 X10^3/uL (150.0-450.0) 05/29/23 05:44 Plt Count Comment Increased (ADEQUATE) A 05/27/23 01:16 MPV 9.5 fL (7.4-11.0) 05/29/23 05:44 Neut % (Auto) 67.7 % (42.0-75.0) 05/29/23 05:44 Lymph % (Auto) 17.4 % (21.0-51.0) L 05/29/23 05:44 [place] % (Auto) 12.8 % (0.0-13.0) 05/29/23 05:44 Eos % (Auto) 1.1 % (0.9-2.9) 05/29/23 05:44 Baso % (Auto) 1.0 % (0.2-1.0) 05/29/23 05:44 Neut # (Auto) 10.0 x10^3/uL (2.2-4.8) H 05/29/23 05:44 Lymph # (Auto) 2.6 X10^3/uL (1.3-2.9) 05/29/23 05:44 [place] # (Auto) 1.9 x10^3/uL (0.3-0.8) H 05/29/23 05:44 Eos # (Auto) 0.2 x10^3/uL (0.0-0.2) 05/29/23 05:44 Baso # (Auto) 0.1 X10^3/uL (0.0-0.1) 05/29/23 05:44 Absolute Nucleated RBC 0.0 /100WBC 05/29/23 05:44 Total Counted 100 05/27/23 01:16 Neutrophils % (Manual) 85 % (39-76) H 05/27/23 01:16 Lymphocytes % (Manual) 4 % (13-43) L 05/27/23 01:16 Monocytes % (Manual) 11 % (4-9) H 05/27/23 01:16 Plt Morphology Comment Normal (NORMAL) 05/27/23 01:16 RBC Morphology Normal (NORMAL) 05/27/23 01:16 ESR 2 MM/HOUR (0-20) 05/28/23 10:25 Sodium 135 mmol/L (136-145) L 05/29/23 05:44 Corrected Sodium 135 mmol/L (136-145) L 05/29/23 05:44 Potassium 3.5 mmol/L (3.5-5.1) 05/29/23 05:44 Chloride 103 mmol/L (98-107) 05/29/23 05:44 Carbon Dioxide 25.2 mmol/L (21-32) 05/29/23 05:44 BUN 33 mg/dL (7-18) H 05/29/23 05:44 Creatinine 1.37 mg/dL (0.55-1.02) H 05/29/23 05:44 Est GFR (MDRD) Af Amer 48 (>60) L 05/29/23 05:44 Est GFR (MDRD) Non-Af 40 (>60) L 05/29/23 05:44 Glucose 115 mg/dL (65-99) H 05/29/23 05:44 Lactic Acid 1.0 mmol/L (0.4-2.0) 05/27/23 19:45 Calcium 7.9 mg/dL (8.5-10.1) L 05/29/23 05:44 Corrected Calcium 8.7 mg/dL (8.5-10.1) 05/29/23 05:44 Magnesium 2.5 mg/dL (2.0-2.9) 05/28/23 05:12 Total Bilirubin 0.50 mg/dL (0.2-1.0) 05/29/23 05:44 AST 59 Units/L (15-37) H 05/29/23 05:44 ALT < 6 Units/L (12-78) L 05/29/23 05:44 Alkaline Phosphatase 72 Units/L (46-116) 05/29/23 05:44 C-Reactive Protein 33.10 mg/L (0-3.0) H 05/28/23 05:12 Total Protein 5.5 g/dL (6.4-8.2) L 05/29/23 05:44 Albumin 3.0 g/dL (3.4-5.0) L 05/29/23 05:44 Globulin 2.5 g/dL (2.5-4.5) 05/29/23 05:44 Albumin/Globulin Ratio 1.2 Ratio (1.1-2.1) 05/29/23 05:44 Specimen Type Clean catch urine 05/27/23 08:25 Urine Color Yellow (YELLOW) 05/27/23 08:25 Urine Appearance Slightly hazy (CLEAR) 05/27/23 08:25 Urine pH 6.0 (5.0 - 8.0) 05/27/23 08:25 Ur Specific [place] 1.025 (1.000-1.030) 05/27/23 08:25 Urine Protein 3+ (NEGATIVE) 05/27/23 08:25 Urine Glucose (UA) Negative (NEGATIVE) 05/27/23 08:25 Urine Ketones 2+ (NEGATIVE) 05/27/23 08:25 Urine Blood 3+ (NEGATIVE) 05/27/23 08:25 Urine Nitrite Negative (NEGATIVE) 05/27/23 08:25 Urine Bilirubin Negative (NEGATIVE) 05/27/23 08:25 Urine Urobilinogen Normal (NORMAL) 05/27/23 08:25 Ur Leukocyte Esterase Negative (NEGATIVE) 05/27/23 08:25 Urine RBC 0-2 /HPF (0-3) 05/27/23 08:25 Urine WBC 0-2 /HPF (0-5) 05/27/23 08:25 Ur Squamous Epith Cells Rare /HPF (NEGATIVE) 05/27/23 08:25 Urine Bacteria Trace /HPF (NEGATIVE) 05/27/23 08:25 Hyaline Casts Moderate /LPF (NEGATIVE) 05/27/23 08:25 Granular Casts Few /LPF (NEGATIVE) 05/27/23 08:25 Urine Mucus Rare /HPF (NEGATIVE) 05/27/23 08:25 Ur Culture Indicated? No/not indicated 05/27/23 08:25 Stl Occult Blood (IFOB) Negative (NEGATIVE) 05/27/23 10:46 Stool for White Cells Positive (NEGATIVE) A 05/27/23 10:46 Stl C. diff Tox B Gene Negative (NEGATIVE) 05/27/23 10:46 Stl C. diff [id number] Presumptive negative (NEGATIVE) 05/27/23 10:46 Stool H. pylori Ag Positive (NEGATIVE) A 05/27/23 10:46 Plan (1) CHANDRA (acute kidney injury): Status: Acute (2) Acute dehydration: Status: Acute (3) H. pylori infection: Status: Acute (4) Leukocytosis: Status: Acute Qualifiers: Leukocytosis type: unspecified Qualified Code(s): D72.829 - Elevated white blood cell count, unspecified (5) Intractable diarrhea: Status: Acute (6) Generalized weakness: Status: Acute (7) HTN (hypertension): Status: Chronic Qualifiers: Hypertension type: primary hypertension Qualified Code(s): I10 - Essential (primary) hypertension (8) Hyperlipidemia: Status: Chronic Qualifiers: Hyperlipidemia type: mixed hyperlipidemia Qualified Code(s): E78.2 - Mixed hyperlipidemia (9) Anxiety: Status: Chronic
[2023-05-29] MEDS: CLINIMIX 4.25%-5% 1,000 ML with MVI INJ (ADULT) 10 ML IV SCH ×2 (12:37)
[2023-05-29] MEDS: MIRAPEX TAB 0.25 MG PO SCH (20:36)
[2023-05-29] MEDS: CRESTOR TAB 10 MG PO SCH (20:37)
[2023-05-30] MEDS: FLAGYL IV PREMIX 500 MG BAG 500 MG/100 ML BAG IV SCH ×3 (05:01→21:10)
[2023-05-30 06:13] LABS: BASOPHILS # (AUTO) 0.1 X10^3/uL (0.0-0.1); BASOPHILS % (AUTO) 0.8 % (0.2-1.0); EOSINOPHILS # (AUTO) 0.2 x10^3/uL (0.0-0.2); EOSINOPHILS % (AUTO) 0.9 % (0.9-2.9); HEMOGLOBIN 8.7 g/dL (12.0-16.0); LYMPHOCYTES # (AUTO) 2.6 X10^3/uL (1.3-2.9); LYMPHOCYTES % (AUTO) 15.7 % (21.0-51.0); MEAN CORPUSCULAR HEMOGLOBIN 27.6 pg (27.0-34.0); MEAN CORPUSCULAR HGB CONC 33.4 g/dL (33.0-35.0); MEAN CORPUSCULAR VOLUME 82.7 fL (80.0-100.0); MEAN PLATELET VOLUME 9.2 fL (7.4-11.0); MONOCYTES # (AUTO) 1.9 x10^3/uL (0.3-0.8); MONOCYTES % (AUTO) 11.4 % (0.0-13.0); NEUTROPHILS # (AUTO) 11.7 x10^3/uL (2.2-4.8); NEUTROPHILS % (AUTO) 71.2 % (42.0-75.0); PLATELET COUNT 339 X10^3/uL (150.0-450.0); RED BLOOD COUNT 3.15 X10^6/uL (3.5-5.4); WHITE BLOOD COUNT 16.4 X10^3/uL (3.6-10.0)
[2023-05-30 06:39] LABS: ALANINE AMINOTRANSFERASE 7 Units/L (12-78); ALBUMIN 3.1 g/dL (3.4-5.0); ALKALINE PHOSPHATASE 76 Units/L (46-116); ASPARTATE AMINO TRANSFERASE 43 Units/L (15-37); BLOOD UREA NITROGEN 28 mg/dL (7-18); CALCIUM 7.9 mg/dL (8.5-10.1); CARBON DIOXIDE 24.9 mmol/L (21-32); CHLORIDE 100 mmol/L (98-107); COR CA(FOR HYPOALB) 8.6 mg/dL (8.5-10.1); CREATININE 1.29 mg/dL (0.55-1.02); GLUCOSE 107 mg/dL (65-99); MAGNESIUM 2.2 mg/dL (2.0-2.9); POTASSIUM 3.5 mmol/L (3.5-5.1); SODIUM 132 mmol/L (136-145); TOTAL PROTEIN 5.5 g/dL (6.4-8.2); eGFR NON BLACK RACES 43 (>60)
[2023-05-30] MEDS: NS + KCL 20 MEQ/L 1,000 ML IV SCH (09:00)
[2023-05-30] MEDS: XANAX PO PRN (09:07)
[2023-05-30] MEDS: ALBUMIN HUMAN 25%- 100 ML 100 ML IV SCH (09:07)
[2023-05-30] MEDS: SINEMET CR 50/200 MG PO SCH ×4 (09:07→20:48)
[2023-05-30] MEDS: PLAQUENIL PO SCH ×2 (09:07→20:48)
[2023-05-30] MEDS: REQUIP PO SCH ×2 (09:07→20:48)
[2023-05-30] MEDS: CIPRO IV 400 MG PREMIX* 400 MG/200 ML IV.SOLN. IV SCH (09:07)
[2023-05-30] MEDS: PEPCID 20 MG VIAL 20 MG in NS 50 ML IV 50 ML IV SCH (09:08)
[2023-05-30] MEDS: LOVENOX INJ 30 MG SYR SC SCH (09:08)
[2023-05-30] MEDS: PROTONIX INJ 40 MG VIAL IVP SCH ×2 (09:08→20:49)
--- NOTE | 2023-05-30 12:17 | PCM.PROG ---
Progress Note Progress Note for Day of Date of Exam: 05/30/23 Subjective Subjective: Patient seen at bedside, no acute events overnight. She is currently being treated for dehydration, CHANDRA and H Pylori infection. Her diarrhea has resolved and she has been tolerating PO intake. Denies N/V. She has been ambulating to the bathroom. Labs/imaging - Hgb 8.7 BUN/Cr 28/1.29 Mg 2.2 WBC 16.4 Plan: Will DC Cipro and start Clarithromycin as part of triple therapy for H.Pylori. Continue Flagyl and pantoprazole. Will increase IVF to 75cc/hr. Replacement electrolytes as needed. Advance diet as tolerated. Anti-emetics prn. Monitor renal function. Ambulate as tolerated. Monitor AM labs/imaging. Past Medical Family Social History Past Med/Fam/Surg Hx: No changes since H&P Allergies: Allergies No Known Allergies Allergy (Verified 05/27/23 01:12) Review of Systems ROS: No change since H&P Vital Signs and I&O's Vital Signs: Vital Signs Temperature 98.8 F Pulse Rate [Left Brachial] 84 Respiratory Rate 18 Blood Pressure [Left Arm] 97/55 O2 Sat by Pulse Oximetry 95 Intake and Output: Intake & Output 05/27/23 05/28/23 05/29/23 05/30/23 23:59 23:59 23:59 23:59 Intake Total 1449 / 1449 3349 / 3349 4246 / 4246 939 / 939 Balance 1449 / 1449 3349 / 3349 4246 / 4246 939 / 939 Physical Exam Oriented: Normal Eyes: Normal Ear: Normal Nose: Normal Throat: Normal Respiratory: Diminished Cardiovascular: Normal Auscultation: Bowel Sounds: Normal Palpation: Normal Tenderness: Normal Skin: Normal Musculoskeletal: Normal Psychiatric: Normal Mood Description: Calm Affect: Normal Speech Pattern: Clear and Appropriate Laboratory and Diagnostics 05/30/23 05:37 05/30/23 05:37 Labs: 05/27/23 19:45 Blood Blood Culture - Preliminary 05/27/23 19:40 Blood Blood Culture - Preliminary 05/27/23 10:46 Stool Stool Culture - Final 05/27/23 10:46 Stool - Final Laboratory WBC 16.4 X10^3/uL (3.6-10.0) H 05/30/23 05:37 RBC 3.15 X10^6/uL (3.5-5.4) L 05/30/23 05:37 Hgb 8.7 g/dL (12.0-16.0) L 05/30/23 05:37 Hct 26.0 % (36.0-47.0) L 05/30/23 05:37 MCV 82.7 fL (80.0-100.0) 05/30/23 05:37 MCH 27.6 pg (27.0-34.0) 05/30/23 05:37 MCHC 33.4 g/dL (33.0-35.0) 05/30/23 05:37 RDW 15.0 % (11.6-16.5) 05/30/23 05:37 Plt Count 339 X10^3/uL (150.0-450.0) 05/30/23 05:37 Plt Count Comment Increased (ADEQUATE) A 05/27/23 01:16 MPV 9.2 fL (7.4-11.0) 05/30/23 05:37 Neut % (Auto) 71.2 % (42.0-75.0) 05/30/23 05:37 Lymph % (Auto) 15.7 % (21.0-51.0) L 05/30/23 05:37 [place] % (Auto) 11.4 % (0.0-13.0) 05/30/23 05:37 Eos % (Auto) 0.9 % (0.9-2.9) 05/30/23 05:37 Baso % (Auto) 0.8 % (0.2-1.0) 05/30/23 05:37 Neut # (Auto) 11.7 x10^3/uL (2.2-4.8) H 05/30/23 05:37 Lymph # (Auto) 2.6 X10^3/uL (1.3-2.9) 05/30/23 05:37 [place] # (Auto) 1.9 x10^3/uL (0.3-0.8) H 05/30/23 05:37 Eos # (Auto) 0.2 x10^3/uL (0.0-0.2) 05/30/23 05:37 Baso # (Auto) 0.1 X10^3/uL (0.0-0.1) 05/30/23 05:37 Absolute Nucleated RBC 0.1 /100WBC 05/30/23 05:37 Total Counted 100 05/27/23 01:16 Neutrophils % (Manual) 85 % (39-76) H 05/27/23 01:16 Lymphocytes % (Manual) 4 % (13-43) L 05/27/23 01:16 Monocytes % (Manual) 11 % (4-9) H 05/27/23 01:16 Plt Morphology Comment Normal (NORMAL) 05/27/23 01:16 RBC Morphology Normal (NORMAL) 05/27/23 01:16 ESR 2 MM/HOUR (0-20) 05/28/23 10:25 Sodium 132 mmol/L (136-145) L 05/30/23 05:37 Corrected Sodium TNP 05/30/23 05:37 Potassium 3.5 mmol/L (3.5-5.1) 05/30/23 05:37 Chloride 100 mmol/L (98-107) 05/30/23 05:37 Carbon Dioxide 24.9 mmol/L (21-32) 05/30/23 05:37 BUN 28 mg/dL (7-18) H 05/30/23 05:37 Creatinine 1.29 mg/dL (0.55-1.02) H 05/30/23 05:37 Est GFR (MDRD) Af Amer 52 (>60) L 05/30/23 05:37 Est GFR (MDRD) Non-Af 43 (>60) L 05/30/23 05:37 Glucose 107 mg/dL (65-99) H 05/30/23 05:37 Lactic Acid 1.0 mmol/L (0.4-2.0) 05/27/23 19:45 Calcium 7.9 mg/dL (8.5-10.1) L 05/30/23 05:37 Corrected Calcium 8.6 mg/dL (8.5-10.1) 05/30/23 05:37 Magnesium 2.2 mg/dL (2.0-2.9) 05/30/23 05:37 Total Bilirubin 0.50 mg/dL (0.2-1.0) 05/30/23 05:37 AST 43 Units/L (15-37) H 05/30/23 05:37 ALT 7 Units/L (12-78) L 05/30/23 05:37 Alkaline Phosphatase 76 Units/L (46-116) 05/30/23 05:37 C-Reactive Protein 33.10 mg/L (0-3.0) H 05/28/23 05:12 Total Protein 5.5 g/dL (6.4-8.2) L 05/30/23 05:37 Albumin 3.1 g/dL (3.4-5.0) L 05/30/23 05:37 Globulin 2.4 g/dL (2.5-4.5) L 05/30/23 05:37 Albumin/Globulin Ratio 1.3 Ratio (1.1-2.1) 05/30/23 05:37 Specimen Type Clean catch urine 05/27/23 08:25 Urine Color Yellow (YELLOW) 05/27/23 08:25 Urine Appearance Slightly hazy (CLEAR) 05/27/23 08:25 Urine pH 6.0 (5.0 - 8.0) 05/27/23 08:25 Ur Specific [place] 1.025 (1.000-1.030) 05/27/23 08:25 Urine Protein 3+ (NEGATIVE) 05/27/23 08:25 Urine Glucose (UA) Negative (NEGATIVE) 05/27/23 08:25 Urine Ketones 2+ (NEGATIVE) 05/27/23 08:25 Urine Blood 3+ (NEGATIVE) 05/27/23 08:25 Urine Nitrite Negative (NEGATIVE) 05/27/23 08:25 Urine Bilirubin Negative (NEGATIVE) 05/27/23 08:25 Urine Urobilinogen Normal (NORMAL) 05/27/23 08:25 Ur Leukocyte Esterase Negative (NEGATIVE) 05/27/23 08:25 Urine RBC 0-2 /HPF (0-3) 05/27/23 08:25 Urine WBC 0-2 /HPF (0-5) 05/27/23 08:25 Ur Squamous Epith Cells Rare /HPF (NEGATIVE) 05/27/23 08:25 Urine Bacteria Trace /HPF (NEGATIVE) 05/27/23 08:25 Hyaline Casts Moderate /LPF (NEGATIVE) 05/27/23 08:25 Granular Casts Few /LPF (NEGATIVE) 05/27/23 08:25 Urine Mucus Rare /HPF (NEGATIVE) 05/27/23 08:25 Ur Culture Indicated? No/not indicated 05/27/23 08:25 Stl Occult Blood (IFOB) Negative (NEGATIVE) 05/27/23 10:46 Stool for White Cells Positive (NEGATIVE) A 05/27/23 10:46 Stl C. diff Tox B Gene Negative (NEGATIVE) 05/27/23 10:46 Stl C. diff [id number] Presumptive negative (NEGATIVE) 05/27/23 10:46 Stool H. pylori Ag Positive (NEGATIVE) A 05/27/23 10:46 Plan (1) H. pylori infection: Status: Acute (2) CHANDRA (acute kidney injury): Status: Acute (3) Acute dehydration: Status: Acute (4) Leukocytosis: Status: Acute Qualifiers: Leukocytosis type: unspecified Qualified Code(s): D72.829 - Elevated white blood cell count, unspecified (5) Intractable diarrhea: Status: Acute (6) Generalized weakness: Status: Acute (7) HTN (hypertension): Status: Chronic Qualifiers: Hypertension type: primary hypertension Qualified Code(s): I10 - Essential (primary) hypertension (8) Hyperlipidemia: Status: Chronic Qualifiers: Hyperlipidemia type: mixed hyperlipidemia Qualified Code(s): E78.2 - Mixed hyperlipidemia (9) Anxiety: Status: Chronic
[2023-05-30] MEDS: BIAXIN TAB 500 MG PO SCH ×2 (13:17→20:49)
[2023-05-30] MEDS: CLINIMIX 4.25%-5% 1,000 ML with MVI INJ (ADULT) 10 ML IV SCH ×2 (13:17)
[2023-05-30] MEDS: MIRAPEX TAB 0.25 MG PO SCH (20:48)
[2023-05-30] MEDS: CRESTOR TAB 10 MG PO SCH (20:48)
[2023-05-31] MEDS: FLAGYL IV PREMIX 500 MG BAG 500 MG/100 ML BAG IV SCH (05:16)
[2023-05-31 06:10] LABS: BASOPHILS # (AUTO) 0.1 X10^3/uL (0.0-0.1); BASOPHILS % (AUTO) 0.6 % (0.2-1.0); EOSINOPHILS # (AUTO) 0.2 x10^3/uL (0.0-0.2); HEMATOCRIT 26.1 % (36.0-47.0); HEMOGLOBIN 8.7 g/dL (12.0-16.0); LYMPHOCYTES # (AUTO) 2.4 X10^3/uL (1.3-2.9); LYMPHOCYTES % (AUTO) 13.7 % (21.0-51.0); MEAN CORPUSCULAR HEMOGLOBIN 27.6 pg (27.0-34.0); MEAN CORPUSCULAR HGB CONC 33.3 g/dL (33.0-35.0); MEAN CORPUSCULAR VOLUME 82.8 fL (80.0-100.0); MONOCYTES # (AUTO) 2.3 x10^3/uL (0.3-0.8); MONOCYTES % (AUTO) 13.1 % (0.0-13.0); NEUTROPHILS # (AUTO) 12.6 x10^3/uL (2.2-4.8); NEUTROPHILS % (AUTO) 71.6 % (42.0-75.0); PLATELET COUNT 341 X10^3/uL (150.0-450.0); RED BLOOD COUNT 3.15 X10^6/uL (3.5-5.4); RED CELL DISTRIBUTION WIDTH 15.1 % (11.6-16.5); WHITE BLOOD COUNT 17.7 X10^3/uL (3.6-10.0)
[2023-05-31 06:28] LABS: ALANINE AMINOTRANSFERASE < 6 Units/L (12-78); ALBUMIN 3.3 g/dL (3.4-5.0); ALKALINE PHOSPHATASE 91 Units/L (46-116); ASPARTATE AMINO TRANSFERASE 37 Units/L (15-37); BLOOD UREA NITROGEN 27 mg/dL (7-18); CALCIUM 7.9 mg/dL (8.5-10.1); CARBON DIOXIDE 22.6 mmol/L (21-32); CHLORIDE 98 mmol/L (98-107); COR CA(FOR HYPOALB) 8.5 mg/dL (8.5-10.1); CREATININE 1.35 mg/dL (0.55-1.02); GLUCOSE 103 mg/dL (65-99); POTASSIUM 3.4 mmol/L (3.5-5.1); SODIUM 131 mmol/L (136-145); TOTAL PROTEIN 5.7 g/dL (6.4-8.2); eGFR NON BLACK RACES 41 (>60)
--- NOTE | 2023-05-31 06:47 | RAD ---
HISTORYShortness of breathSTUDYChest AP [id number] May 2023FINDINGSThe heart remains enlarged. Right lung is clear. Perihilar interstitial and some early alveolar infiltrates are present on the left. This could be on the basis of pneumonia or asymmetric edema. No pleural effusions are present. Bony thorax is unremarkable with the exception of osteopenia.IMPRESSIONNo change cardiomegalyNew left perihilar interstitial and alveolar infiltrates which could indicate either pneumonia or asymmetric edema.Electronically signed by: LUKASZ HAHN (May 31, 2023 06:46:46)
[2023-05-31] MEDS ORDERED: CONSULT PHARMACY - POTASSIUM & MAGNESIUM XX SCH (07:00)
[2023-05-31] MEDS: LOVENOX INJ 30 MG SYR SC SCH (08:31)
[2023-05-31] MEDS: PLAQUENIL PO SCH ×2 (08:32→20:33)
[2023-05-31] MEDS: PEPCID 20 MG VIAL 20 MG in NS 50 ML IV 50 ML IV SCH (08:32)
[2023-05-31] MEDS: SINEMET CR 50/200 MG PO SCH ×4 (08:32→20:33)
[2023-05-31] MEDS: REQUIP PO SCH ×2 (08:32→20:34)
[2023-05-31] MEDS: BIAXIN TAB 500 MG PO SCH ×2 (08:32→20:34)
[2023-05-31] MEDS: PROTONIX INJ 40 MG VIAL IVP SCH ×2 (08:32→20:34)
[2023-05-31] MEDS: ALBUMIN HUMAN 25%- 100 ML 100 ML IV SCH (08:33)
[2023-05-31] MEDS ORDERED: K-DUR TAB 20 MEQ PO ONE (09:00)
[2023-05-31] MEDS: NS + KCL 20 MEQ/L 1,000 ML IV SCH ×2 (09:01→15:59)
[2023-05-31] MEDS: AMOXIL CAP 500 MG PO SCH ×2 (10:57→20:33)
[2023-05-31] MEDS: CLINIMIX IV SCH ×3 (11:56)
[2023-05-31] MEDS: MVI IV SCH ×3 (11:56)
[2023-05-31] MEDS: [UNRECOGNIZED DRUG - OTHER] IV SCH ×3 (11:56)
[2023-05-31] MEDS: XANAX PO PRN ×2 (12:57→20:42)
[2023-05-31] MEDS: XOPENEX 1.25 MG/3 ML NEBULE NEB SCH ×4 (13:28→20:41)
[2023-05-31] MEDS: CRESTOR TAB 10 MG PO SCH (20:33)
[2023-05-31] MEDS: MIRAPEX TAB 0.25 MG PO SCH (20:34)
--- NOTE | 2023-05-31 22:46 | PCM.PROG ---
Progress Note - Progress Note for Day of Date of Exam: 05/31/23 - Subjective Subjective: IS CURRENTLY INPATIENT STATUS FOR TREATMENT OF ACUTE KIDNEY INJURY, DEHYDRATION, LEUKOCYTOSIS, INTRACTABLE DIARRHEA, H.PYLORI, AMS, AND GENERALIZED WEAKNESS. SHE HAS A PMH OF ESSENTIAL TREMORS, HYPERLIPIDEMIA, HTN, FIBROMYALGIA, ANXIETY, , AND HYSTERECTOMY. TODAY, SHE IS ALERT AND ORIENTED, LYING IN BED ON MORNING ROUNDS. SHE CONTINUES WITH WEAKNESS. SHE ALSO REPORTS A COUGH THAT IS PRODUCTIVE OF THICK, WHITE SPUTUM AND OCCASIONAL SHORTNESS OF BREATH. SHE REPORTS THAT THE DIARRHEA HAS RESOLVED. SHE DENIES NAUSEA AND VOMITING. SHE HAS BEEN AMBULATING IN THE ROOM WITHOUT ASSISTANCE. ON EXAMINATION, HEART IS REGULAR IN RATE AND RHYTHM. BILATERAL LUNGS ARE NOTED WITH DIMINISHED LUNG SOUNDS THROUGHOUT. ABDOMEN IS FLAT, SOFT, AND NON-TENDER WITH NORMAL BOWEL SOUNDS NOTED IN ALL QUADRANTS. GOOD RANGE OF MOTION NOTED TO UPPER AND LOWER EXTREMITIES WITH NO EDEMA NOTED. HER VITALS THIS MORNING WERE: 98.5-87-20-94%-96/50. LABS WERE OBTAINED. WBC 17.7, RBC 3.15, HGB 8.7, HCT 26.1, PLT COUNT 341, SODIUM 131, POTASSIUM 3.4, BUN 27, CREATININE 1.35, GLUCOSE 103, CALCIUM 7.9, TOTAL BILI 0.70, AST 37, ALT <6, ALK PHOS 91, BNP 1620, TOTAL PROTEIN 5.7, ALBUMIN 3.3. BLOOD AND SPUTUM CULTURES ARE PENDING. A CHEST XRAY WAS OBTAINED THIS MORNING AND REVEALED: No change cardiomegaly. New left perihilar interstitial and alveolar infiltrates which could indicate either pneumonia or asymmetric edema. SHE IS CURRENTLY RECEIVING NORMAL SALINE WITH 40MEQ KCL AT 75 ML/HR, TPN AT 40 ML/HR, CLARITHROMYCIN 400MG PO BID, FLAGYL 500MG IV TID, PROTONIX 40MG IV BID, FAMOTIDINE 20MG DAILY, LOVENOX 30MG DAILY, AND TUCKS PADS WITH PREPARATION H AND LIDOCAINE OINTMENT FIVE TIMES A DAY NEEDED FOR HEMORRHOIDAL PAIN. HER HOME MEDICATIONS OF XANAX, SINEMET, COLACE, PLAQUENIL, MIRAPEX, REQUIP, AND CRESTOR WERE RESUMED. TODAY, WE WILL ADD AMOXICILLIN 1000MG BID AND XOPENEX NEBS QID. WE WILL DISCONTINUE THE FLAGYL. WE WILL OBTAIN AN ECHOCARDIOGRAM. OTHERWISE, WE WILL CONTINUE WITH CURRENT PLAN OF CARE. WE PLAN TO FOLLOW UP WITH AM LABS AND CONTINUE TO MONITOR. TIME SPENT ON CLINICAL ASSESSMENT, REVIEWING LABS AND IMAGING, DECISION MAKING, AND DOCUMENTATION GREATER THAN 45 MINUTES. - Past Medical Family Social History Past Med/Fam/Surg Hx: No changes since H&P Allergies: Allergies No Known Allergies Allergy (Verified 05/27/23 01:12) - Review of Systems ROS: No change since H&P - Vital Signs and I&O's Vital Signs: Vital Signs Temperature 98.4 F Temperature 97.8 F Pulse Rate [Left Brachial] 89 Pulse Rate [Left Brachial] 88 Pulse Rate 82 Respiratory Rate 20 Respiratory Rate 20 Blood Pressure [Left Arm] 105/56 Blood Pressure [Left Arm] 102/55 O2 Sat by Pulse Oximetry 94 O2 Sat by Pulse Oximetry 98 O2 Sat by Pulse Oximetry 95 Intake and Output: Intake & Output 05/29/23 05/30/23 05/31/23 06/01/23 11:59 11:59 11:59 11:59 Intake Total 4732 / 4732 3458 / 3458 3867 / 3867 1272 / 1272 Balance 4732 / 4732 3458 / 3458 3867 / 3867 1272 / 1272 - Physical Exam Oriented: Normal Eyes: Normal Ear: Normal Nose: Normal Throat: Normal Respiratory: Diminished Cardiovascular: Normal : Normal Auscultation: Bowel Sounds: Normal Palpation: Normal Tenderness: Normal Skin: Normal Musculoskeletal: Normal Psychiatric: Normal Mood Description: Calm Affect: Normal Speech Pattern: Clear, Appropriate - Laboratory and Diagnostics Result Diagrams: 05/31/23 05:42 05/31/23 05:42 Labs: 05/31/23 10:29 Sputum - Expectorated Sputum - Final 05/27/23 19:45 Blood Blood Culture - Preliminary 05/27/23 19:40 Blood Blood Culture - Preliminary 05/27/23 10:46 Stool Stool Culture - Final 05/27/23 10:46 Stool - Final Laboratory WBC 17.7 X10^3/uL (3.6-10.0) H 05/31/23 05:42 RBC 3.15 X10^6/uL (3.5-5.4) L 05/31/23 05:42 Hgb 8.7 g/dL (12.0-16.0) L 05/31/23 05:42 Hct 26.1 % (36.0-47.0) L 05/31/23 05:42 MCV 82.8 fL (80.0-100.0) 05/31/23 05:42 MCH 27.6 pg (27.0-34.0) 05/31/23 05:42 MCHC 33.3 g/dL (33.0-35.0) 05/31/23 05:42 RDW 15.1 % (11.6-16.5) 05/31/23 05:42 Plt Count 341 X10^3/uL (150.0-450.0) 05/31/23 05:42 Plt Count Comment Increased (ADEQUATE) A 05/27/23 01:16 MPV 9.0 fL (7.4-11.0) 05/31/23 05:42 Neut % (Auto) 71.6 % (42.0-75.0) 05/31/23 05:42 Lymph % (Auto) 13.7 % (21.0-51.0) L 05/31/23 05:42 [place] % (Auto) 13.1 % (0.0-13.0) H 05/31/23 05:42 Eos % (Auto) 1.0 % (0.9-2.9) 05/31/23 05:42 Baso % (Auto) 0.6 % (0.2-1.0) 05/31/23 05:42 Neut # (Auto) 12.6 x10^3/uL (2.2-4.8) H 05/31/23 05:42 Lymph # (Auto) 2.4 X10^3/uL (1.3-2.9) 05/31/23 05:42 [place] # (Auto) 2.3 x10^3/uL (0.3-0.8) H 05/31/23 05:42 Eos # (Auto) 0.2 x10^3/uL (0.0-0.2) 05/31/23 05:42 Baso # (Auto) 0.1 X10^3/uL (0.0-0.1) 05/31/23 05:42 Absolute Nucleated RBC 0.0 /100WBC 05/31/23 05:42 Total Counted 100 05/27/23 01:16 Neutrophils % (Manual) 85 % (39-76) H 05/27/23 01:16 Lymphocytes % (Manual) 4 % (13-43) L 05/27/23 01:16 Monocytes % (Manual) 11 % (4-9) H 05/27/23 01:16 Plt Morphology Comment Normal (NORMAL) 05/27/23 01:16 RBC Morphology Normal (NORMAL) 05/27/23 01:16 ESR 2 MM/HOUR (0-20) 05/28/23 10:25 Sodium 131 mmol/L (136-145) L 05/31/23 05:42 Corrected Sodium TNP 05/31/23 05:42 Potassium 3.4 mmol/L (3.5-5.1) L 05/31/23 05:42 Chloride 98 mmol/L (98-107) 05/31/23 05:42 Carbon Dioxide 22.6 mmol/L (21-32) 05/31/23 05:42 BUN 27 mg/dL (7-18) H 05/31/23 05:42 Creatinine 1.35 mg/dL (0.55-1.02) H 05/31/23 05:42 Est GFR (MDRD) Af Amer 49 (>60) L 05/31/23 05:42 Est GFR (MDRD) Non-Af 41 (>60) L 05/31/23 05:42 Glucose 103 mg/dL (65-99) H 05/31/23 05:42 Lactic Acid 1.0 mmol/L (0.4-2.0) 05/27/23 19:45 Calcium 7.9 mg/dL (8.5-10.1) L 05/31/23 05:42 Corrected Calcium 8.5 mg/dL (8.5-10.1) 05/31/23 05:42 Magnesium 2.2 mg/dL (2.0-2.9) 05/30/23 05:37 Total Bilirubin 0.70 mg/dL (0.2-1.0) 05/31/23 05:42 AST 37 Units/L (15-37) 05/31/23 05:42 ALT < 6 Units/L (12-78) L 05/31/23 05:42 Alkaline Phosphatase 91 Units/L (46-116) 05/31/23 05:42 C-Reactive Protein 33.10 mg/L (0-3.0) H 05/28/23 05:12 B-Natriuretic Peptide 1620 pg/mL (0-79) H* 05/31/23 05:42 Total Protein 5.7 g/dL (6.4-8.2) L 05/31/23 05:42 Albumin 3.3 g/dL (3.4-5.0) L 05/31/23 05:42 Globulin 2.4 g/dL (2.5-4.5) L 05/31/23 05:42 Albumin/Globulin Ratio 1.4 Ratio (1.1-2.1) 05/31/23 05:42 Specimen Type Clean catch urine 05/27/23 08:25 Urine Color Yellow (YELLOW) 05/27/23 08:25 Urine Appearance Slightly hazy (CLEAR) 05/27/23 08:25 Urine pH 6.0 (5.0 - 8.0) 05/27/23 08:25 Ur Specific [place] 1.025 (1.000-1.030) 05/27/23 08:25 Urine Protein 3+ (NEGATIVE) 05/27/23 08:25 Urine Glucose (UA) Negative (NEGATIVE) 05/27/23 08:25 Urine Ketones 2+ (NEGATIVE) 05/27/23 08:25 Urine Blood 3+ (NEGATIVE) 05/27/23 08:25 Urine Nitrite Negative (NEGATIVE) 05/27/23 08:25 Urine Bilirubin Negative (NEGATIVE) 05/27/23 08:25 Urine Urobilinogen Normal (NORMAL) 05/27/23 08:25 Ur Leukocyte Esterase Negative (NEGATIVE) 05/27/23 08:25 Urine RBC 0-2 /HPF (0-3) 05/27/23 08:25 Urine WBC 0-2 /HPF (0-5) 05/27/23 08:25 Ur Squamous Epith Cells Rare /HPF (NEGATIVE) 05/27/23 08:25 Urine Bacteria Trace /HPF (NEGATIVE) 05/27/23 08:25 Hyaline Casts Moderate /LPF (NEGATIVE) 05/27/23 08:25 Granular Casts Few /LPF (NEGATIVE) 05/27/23 08:25 Urine Mucus Rare /HPF (NEGATIVE) 05/27/23 08:25 Ur Culture Indicated? No/not indicated 05/27/23 08:25 Stl Occult Blood (IFOB) Negative (NEGATIVE) 05/27/23 10:46 Stool for White Cells Positive (NEGATIVE) A 05/27/23 10:46 Stl C. diff Tox B Gene Negative (NEGATIVE) 05/27/23 10:46 Stl C. diff [id number] Presumptive negative (NEGATIVE) 05/27/23 10:46 Stool H. pylori Ag Positive (NEGATIVE) A 05/27/23 10:46 Resp Viral Panel (PCR) See scanned report 05/28/23 22:25 - Plan (1) CHANDRA (acute kidney injury) Status: Acute Plan: NORMAL SALINE WITH 40MEQ KCL AT 75 ML/HR, TPN AT 40 ML/HR, AMOXICILLIN 1000MG BID, CLARITHROMYCIN 400MG PO BID, XOPENEX NEBS QID, PROTONIX 40MG IV BID, FAMOTIDINE 20MG DAILY, LOVENOX 30MG DAILY (2) Pneumonia Status: Acute Qualifiers: Pneumonia type: due to unspecified organism Laterality: left Lung location: unspecified part of lung Qualified Code(s): J18.9 - Pneumonia, unspecified organism (3) Acute dehydration Status: Acute (4) Leukocytosis Status: Acute Qualifiers: Leukocytosis type: unspecified Qualified Code(s): D72.829 - Elevated white blood cell count, unspecified (5) Intractable diarrhea Status: Resolved Plan: STOOL CULTURES PENDING (6) H. pylori infection Status: Acute Plan: PEPCID IV DAILY, PROTONIX IV BID (7) Altered mental status Status: Acute Qualifiers: Altered mental status type: transient alteration of awareness Qualified Code(s): R40.4 - Transient alteration of awareness (8) Generalized weakness Status: Acute (9) HTN (hypertension) Status: Chronic Qualifiers: Hypertension type: primary hypertension Qualified Code(s): I10 - Essential (primary) hypertension Plan: STABLE. CONTINUE TO MONITOR (10) Hyperlipidemia Status: Chronic Qualifiers: Hyperlipidemia type: mixed hyperlipidemia Qualified Code(s): E78.2 - Mixed hyperlipidemia (11) Anxiety Status: Chronic
--- NOTE | 2023-06-01 06:24 | RAD ---
HISTORYShortness of breathSTUDYChest AP [id number]/2023FINDINGSHear t remains enlarged. Right lung appears free of acute infiltrates. No right pleural effusion is identified. Left perihilar infiltrates remain most likely pneumonia. Left pleural effusion is now present. Bony thorax is unremarkable.IMPRESSIONPersistent left perihilar infiltrate most consistent with pneumoniaLeft pleural effusion is now present.Right lung free of acute infiltrates.Electronically signed by: LUKASZ HAHN (Jun 01, 2023 06:23:58)
[2023-06-01 06:36] LABS: BASOPHILS # (AUTO) 0.1 X10^3/uL (0.0-0.1); BASOPHILS % (AUTO) 0.5 % (0.2-1.0); EOSINOPHILS # (AUTO) 0.2 x10^3/uL (0.0-0.2); HEMATOCRIT 25.3 % (36.0-47.0); HEMOGLOBIN 8.3 g/dL (12.0-16.0); LYMPHOCYTES # (AUTO) 1.5 X10^3/uL (1.3-2.9); LYMPHOCYTES % (AUTO) 9.6 % (21.0-51.0); MEAN CORPUSCULAR HEMOGLOBIN 27.4 pg (27.0-34.0); MEAN CORPUSCULAR HGB CONC 32.9 g/dL (33.0-35.0); MEAN CORPUSCULAR VOLUME 83.2 fL (80.0-100.0); MEAN PLATELET VOLUME 9.8 fL (7.4-11.0); MONOCYTES # (AUTO) 2.3 x10^3/uL (0.3-0.8); MONOCYTES % (AUTO) 14.3 % (0.0-13.0); NEUTROPHILS % (AUTO) 74.6 % (42.0-75.0); PLATELET COUNT 305 X10^3/uL (150.0-450.0); RED BLOOD COUNT 3.04 X10^6/uL (3.5-5.4); RED CELL DISTRIBUTION WIDTH 15.4 % (11.6-16.5); WHITE BLOOD COUNT 16.1 X10^3/uL (3.6-10.0)
[2023-06-01 07:11] LABS: ALANINE AMINOTRANSFERASE 6 Units/L (12-78); ALBUMIN 3.4 g/dL (3.4-5.0); ALKALINE PHOSPHATASE 107 Units/L (46-116); ASPARTATE AMINO TRANSFERASE 33 Units/L (15-37); BLOOD UREA NITROGEN 31 mg/dL (7-18); CALCIUM 8.3 mg/dL (8.5-10.1); CARBON DIOXIDE 19.7 mmol/L (21-32); CHLORIDE 103 mmol/L (98-107); CREATININE 1.36 mg/dL (0.55-1.02); GLUCOSE 105 mg/dL (65-99); MAGNESIUM 2.1 mg/dL (2.0-2.9); POTASSIUM 3.6 mmol/L (3.5-5.1); SODIUM 133 mmol/L (136-145); TOTAL PROTEIN 5.9 g/dL (6.4-8.2); eGFR NON BLACK RACES 40 (>60)
[2023-06-01] MEDS ORDERED: CONSULT PHARMACY - POTASSIUM & MAGNESIUM XX SCH (08:00)
[2023-06-01] MEDS: PEPCID 20 MG VIAL 20 MG in NS 50 ML IV 50 ML IV SCH (08:22)
[2023-06-01] MEDS: ALBUMIN HUMAN 25%- 100 ML 100 ML IV SCH (08:22)
[2023-06-01] MEDS: LOVENOX INJ 30 MG SYR SC SCH (08:23)
[2023-06-01] MEDS: PROTONIX INJ 40 MG VIAL IVP SCH ×2 (08:23→20:17)
[2023-06-01] MEDS: REQUIP PO SCH ×2 (08:23→20:16)
[2023-06-01] MEDS: PLAQUENIL PO SCH ×2 (08:24→20:17)
[2023-06-01] MEDS: SINEMET CR 50/200 MG PO SCH ×4 (08:24→20:17)
[2023-06-01] MEDS: BIAXIN TAB 500 MG PO SCH ×2 (08:24→20:17)
[2023-06-01] MEDS: AMOXIL CAP 500 MG PO SCH (08:24)
[2023-06-01] MEDS: NS + KCL 20 MEQ/L 1,000 ML IV SCH (09:01)
[2023-06-01] MEDS: XOPENEX 1.25 MG/3 ML NEBULE NEB SCH ×4 (09:10→20:37)
[2023-06-01] MEDS ORDERED: LEVAQUIN PREMIX IV 500 MG 500 MG/100 ML BAG IV SCH (11:00)
[2023-06-01] MEDS: NS + KCL 40 MEQ/L 1,000 ML IV SCH ×2 (12:13→12:45)
--- NOTE | 2023-06-01 12:42 | PCM.PROG ---
Progress Note - Progress Note for Day of Date of Exam: 06/01/23 - Subjective Subjective: IS CURRENTLY INPATIENT STATUS FOR TREATMENT OF PNEUMONIA, ACUTE KIDNEY INJURY, DEHYDRATION, LEUKOCYTOSIS, INTRACTABLE DIARRHEA, H.PYLORI, AMS, AND GENERALIZED WEAKNESS. SHE HAS A PMH OF ESSENTIAL TREMORS, HYPERLIPIDEMIA, HTN, FIBROMYALGIA, ANXIETY, , AND HYSTERECTOMY. TODAY, SHE IS ALERT AND ORIENTED, LYING IN BED ON MORNING ROUNDS. SHE CONTINUES WITH WEAKNESS. SHE ALSO CONTINUES WITH A COUGH THAT IS PRODUCTIVE OF THICK, WHITE SPUTUM AND OCCASIONAL SHORTNESS OF BREATH. SHE REPORTS THAT THE DIARRHEA HAS RESOLVED. SHE DENIES NAUSEA OR VOMITING THIS MORNING. SHE HAS BEEN AMBULATING IN THE ROOM WITH ASSISTANCE. ON EXAMINATION, HEART IS REGULAR IN RATE AND RHYTHM. BILATERAL LUNGS ARE NOTED WITH DIMINISHED LUNG SOUNDS THROUGHOUT. ABDOMEN IS FLAT, SOFT, AND NON-TENDER WITH NORMAL BOWEL SOUNDS NOTED IN ALL QUADRANTS. GOOD RANGE OF MOTION NOTED TO UPPER AND LOWER EXTREMITIES WITH NO EDEMA NOTED. HER VITALS THIS MORNING WERE: 98.6-108-20-92%-100/60. LABS WERE OBTAINED. WBC 16.1, RBC 3.04, HGB 8.3, HCT 25.3, PLT COUNT 305, SODIUM 133, POTASSIUM 3.6, CHLORIDE 103, BUN 31, CREATININE 1.36, GLUCOSE 105, CALCIUM 8.3, AST 33, ALT 6, ALK PHOS 107, BNP 1790, TOTAL PROTEIN 5.9, ALBUMIN 3.4. BLOOD AND SPUTUM CULTURES ARE PENDING. A CHEST XRAY WAS OBTAINED THIS MORNING AND REVEALED: Persistent left perihilar infiltrate most consistent with pneumonia. Left pleural effusion is now present. Right lung free of acute infiltrates. WE OBTAINED AN ECHO YESTERDAY. IT REVEALED AN EJECTION FRACTION OF 63%, MODERATE PULMONARY HTN. SHE IS CURRENTLY RECEIVING NORMAL SALINE WITH 40MEQ KCL AT 40 ML/HR, TPN AT 40 ML/HR, AMOXICILLIN 1G BID, CLARITHROMYCIN 400MG PO BID, PROTONIX 40MG IV BID, FAMOTIDINE 20MG DAILY, LOVENOX 30MG DAILY, AND TUCKS PADS WITH PREPARATION H AND LIDOCAINE OINTMENT FIVE TIMES A DAY NEEDED FOR HEMORRHOIDAL PAIN. HER HOME MEDICATIONS OF XANAX, SINEMET, COLACE, PLAQUENIL, MIRAPEX, REQUIP, AND CRESTOR WERE RESUMED. TODAY, WE WILL DISCONTINUE THE AMOXICILLIN. WE WILL ADD LEVAQUIN 500MG IV DAILY AND DECREASE HER NORMAL SALINE TO KVO. OTHERWISE, WE WILL CON TINUE WITH CURRENT PLAN OF CARE. WE PLAN TO FOLLOW UP WITH AM LABS AND CONTINUE TO MONITOR. TIME SPENT ON CLINICAL ASSESSMENT, REVIEWING LABS AND IMAGING, DECISION MAKING, AND DOCUMENTATION GREATER THAN 45 MINUTES. - Past Medical Family Social History Past Med/Fam/Surg Hx: No changes since H&P Allergies: Allergies No Known Allergies Allergy (Verified 05/27/23 01:12) - Review of Systems ROS: No change since H&P - Vital Signs and I&O's Vital Signs: Vital Signs Temperature 98.3 F Temperature 98.6 F Pulse Rate [Left Brachial] 105 Pulse Rate [Left Brachial] 108 Respiratory Rate 20 Respiratory Rate 20 Blood Pressure [Left Arm] 95/52 Blood Pressure [Left Arm] 100/60 O2 Sat by Pulse Oximetry 90 O2 Sat by Pulse Oximetry 92 Intake and Output: Intake & Output 05/30/23 05/31/23 06/01/23 06/02/23 11:59 11:59 11:59 11:59 Intake Total 3458 / 3458 3867 / 3867 2916 / 2916 Balance 3458 / 3458 3867 / 3867 2916 / 2916 - Physical Exam Oriented: Normal Eyes: Normal Ear: Normal Nose: Normal Throat: Normal Respiratory: Diminished Cardiovascular: Normal : Normal Auscultation: Bowel Sounds: Normal Palpation: Normal Tenderness: Normal Skin: Normal Musculoskeletal: Normal Psychiatric: Normal Mood Description: Calm Affect: Normal Speech Pattern: Clear, Appropriate - Laboratory and Diagnostics Result Diagrams: 06/01/23 05:44 06/01/23 05:44 Labs: 05/31/23 10:29 Sputum - Expectorated Sputum Sputum Culture - Preliminary 05/31/23 10:29 Sputum - Expectorated Sputum - Final 05/27/23 19:45 Blood Blood Culture - Preliminary 05/27/23 19:40 Blood Blood Culture - Preliminary 05/27/23 10:46 Stool Stool Culture - Final 05/27/23 10:46 Stool - Final Laboratory WBC 16.1 X10^3/uL (3.6-10.0) H 06/01/23 05:44 RBC 3.04 X10^6/uL (3.5-5.4) L 06/01/23 05:44 Hgb 8.3 g/dL (12.0-16.0) L 06/01/23 05:44 Hct 25.3 % (36.0-47.0) L 06/01/23 05:44 MCV 83.2 fL (80.0-100.0) 06/01/23 05:44 MCH 27.4 pg (27.0-34.0) 06/01/23 05:44 MCHC 32.9 g/dL (33.0-35.0) L 06/01/23 05:44 RDW 15.4 % (11.6-16.5) 06/01/23 05:44 Plt Count 305 X10^3/uL (150.0-450.0) 06/01/23 05:44 Plt Count Comment Increased (ADEQUATE) A 05/27/23 01:16 MPV 9.8 fL (7.4-11.0) 06/01/23 05:44 Neut % (Auto) 74.6 % (42.0-75.0) 06/01/23 05:44 Lymph % (Auto) 9.6 % (21.0-51.0) L 06/01/23 05:44 [place] % (Auto) 14.3 % (0.0-13.0) H 06/01/23 05:44 Eos % (Auto) 1.0 % (0.9-2.9) 06/01/23 05:44 Baso % (Auto) 0.5 % (0.2-1.0) 06/01/23 05:44 Neut # (Auto) 12.0 x10^3/uL (2.2-4.8) H 06/01/23 05:44 Lymph # (Auto) 1.5 X10^3/uL (1.3-2.9) 06/01/23 05:44 [place] # (Auto) 2.3 x10^3/uL (0.3-0.8) H 06/01/23 05:44 Eos # (Auto) 0.2 x10^3/uL (0.0-0.2) 06/01/23 05:44 Baso # (Auto) 0.1 X10^3/uL (0.0-0.1) 06/01/23 05:44 Absolute Nucleated RBC 0.1 /100WBC 06/01/23 05:44 Total Counted 100 05/27/23 01:16 Neutrophils % (Manual) 85 % (39-76) H 05/27/23 01:16 Lymphocytes % (Manual) 4 % (13-43) L 05/27/23 01:16 Monocytes % (Manual) 11 % (4-9) H 05/27/23 01:16 Plt Morphology Comment Normal (NORMAL) 05/27/23 01:16 RBC Morphology Normal (NORMAL) 05/27/23 01:16 ESR 2 MM/HOUR (0-20) 05/28/23 10:25 Sodium 133 mmol/L (136-145) L 06/01/23 05:44 Corrected Sodium TNP 06/01/23 05:44 Potassium 3.6 mmol/L (3.5-5.1) 06/01/23 05:44 Chloride 103 mmol/L (98-107) 06/01/23 05:44 Carbon Dioxide 19.7 mmol/L (21-32) L 06/01/23 05:44 BUN 31 mg/dL (7-18) H 06/01/23 05:44 Creatinine 1.36 mg/dL (0.55-1.02) H 06/01/23 05:44 Est GFR (MDRD) Af Amer 49 (>60) L 06/01/23 05:44 Est GFR (MDRD) Non-Af 40 (>60) L 06/01/23 05:44 Glucose 105 mg/dL (65-99) H 06/01/23 05:44 Lactic Acid 1.0 mmol/L (0.4-2.0) 05/27/23 19:45 Calcium 8.3 mg/dL (8.5-10.1) L 06/01/23 05:44 Corrected Calcium TNP 06/01/23 05:44 Magnesium 2.1 mg/dL (2.0-2.9) 06/01/23 05:44 Total Bilirubin 0.50 mg/dL (0.2-1.0) 06/01/23 05:44 AST 33 Units/L (15-37) 06/01/23 05:44 ALT 6 Units/L (12-78) L 06/01/23 05:44 Alkaline Phosphatase 107 Units/L (46-116) 06/01/23 05:44 C-Reactive Protein 33.10 mg/L (0-3.0) H 05/28/23 05:12 B-Natriuretic Peptide 1790 pg/mL (0-79) H* 06/01/23 05:44 Total Protein 5.9 g/dL (6.4-8.2) L 06/01/23 05:44 Albumin 3.4 g/dL (3.4-5.0) 06/01/23 05:44 Globulin 2.5 g/dL (2.5-4.5) 06/01/23 05:44 Albumin/Globulin Ratio 1.4 Ratio (1.1-2.1) 06/01/23 05:44 Specimen Type Clean catch urine 05/27/23 08:25 Urine Color Yellow (YELLOW) 05/27/23 08:25 Urine Appearance Slightly hazy (CLEAR) 05/27/23 08:25 Urine pH 6.0 (5.0 - 8.0) 05/27/23 08:25 Ur Specific [place] 1.025 (1.000-1.030) 05/27/23 08:25 Urine Protein 3+ (NEGATIVE) 05/27/23 08:25 Urine Glucose (UA) Negative (NEGATIVE) 05/27/23 08:25 Urine Ketones 2+ (NEGATIVE) 05/27/23 08:25 Urine Blood 3+ (NEGATIVE) 05/27/23 08:25 Urine Nitrite Negative (NEGATIVE) 05/27/23 08:25 Urine Bilirubin Negative (NEGATIVE) 05/27/23 08:25 Urine Urobilinogen Normal (NORMAL) 05/27/23 08:25 Ur Leukocyte Esterase Negative (NEGATIVE) 05/27/23 08:25 Urine RBC 0-2 /HPF (0-3) 05/27/23 08:25 Urine WBC 0-2 /HPF (0-5) 05/27/23 08:25 Ur Squamous Epith Cells Rare /HPF (NEGATIVE) 05/27/23 08:25 Urine Bacteria Trace /HPF (NEGATIVE) 05/27/23 08:25 Hyaline Casts Moderate /LPF (NEGATIVE) 05/27/23 08:25 Granular Casts Few /LPF (NEGATIVE) 05/27/23 08:25 Urine Mucus Rare /HPF (NEGATIVE) 05/27/23 08:25 Ur Culture Indicated? No/not indicated 05/27/23 08:25 Stl Occult Blood (IFOB) Negative (NEGATIVE) 05/27/23 10:46 Stool for White Cells Positive (NEGATIVE) A 05/27/23 10:46 Stl C. diff Tox B Gene Negative (NEGATIVE) 05/27/23 10:46 Stl C. diff [id number] Presumptive negative (NEGATIVE) 05/27/23 10:46 Stool H. pylori Ag Positive (NEGATIVE) A 05/27/23 10:46 Resp Viral Panel (PCR) See scanned report 05/31/23 10:18 - Plan (1) CHANDRA (acute kidney injury) Status: Acute Plan: NORMAL SALINE WITH 40MEQ KCL AT 20 ML/HR, TPN AT 40 ML/HR, LEVAQUN 500MG IV DAILY, CLARITHROMYCIN 400MG PO BID, XOPENEX NEBS QID, PROTONIX 40MG IV BID, FAMOTIDINE 20MG DAILY, LOVENOX 30MG DAILY (2) Pneumonia Status: Acute Qualifiers: Pneumonia type: due to unspecified organism Laterality: left Lung location: unspecified part of lung Qualified Code(s): J18.9 - Pneumonia, unspecified organism (3) Acute dehydration Status: Acute (4) Leukocytosis Status: Acute Qualifiers: Leukocytosis type: unspecified Qualified Code(s): D72.829 - Elevated white blood cell count, unspecified (5) Intractable diarrhea Status: Resolved Plan: STOOL CULTURES PENDING (6) H. pylori infection Status: Acute Plan: PEPCID IV DAILY, PROTONIX IV BID (7) Altered mental status Status: Acute Qualifiers: Altered mental status type: transient alteration of awareness Qualified Code(s): R40.4 - Transient alteration of awareness (8) Generalized weakness Status: Acute (9) HTN (hypertension) Status: Chronic Qualifiers: Hypertension type: primary hypertension Qualified Code(s): I10 - Essential (primary) hypertension Plan: STABLE. CONTINUE TO MONITOR (10) Hyperlipidemia Status: Chronic Qualifiers: Hyperlipidemia type: mixed hyperlipidemia Qualified Code(s): E78.2 - Mixed hyperlipidemia (11) Anxiety Status: Chronic
[2023-06-01] MEDS ORDERED: DRUG FILTER EXTENSION SET ONE ×2 (12:55→12:58)
[2023-06-01] MEDS: MVI IV SCH ×3 (15:09)
[2023-06-01] MEDS: [UNRECOGNIZED DRUG - OTHER] IV SCH ×3 (15:09)
[2023-06-01] MEDS: CLINIMIX IV SCH ×3 (15:09)
[2023-06-01] MEDS: ZOSYN VIAL 3.375 GRAMS 3.375 G in NS 100 ML IV 100 ML IV SCH ×2 (19:32→21:11)
[2023-06-01] MEDS: MIRAPEX TAB 0.25 MG PO SCH (20:16)
[2023-06-01] MEDS: CRESTOR TAB 10 MG PO SCH (20:17)
[2023-06-02] MEDS: NS + KCL 40 MEQ/L 1,000 ML IV SCH ×2 (01:20→13:06)
[2023-06-02] MEDS: ZOSYN VIAL 3.375 GRAMS 3.375 G in NS 100 ML IV 100 ML IV SCH ×3 (05:07→21:02)
--- NOTE | 2023-06-02 05:38 | RAD ---
HISTORYSOBSTUDYCHEST, 1 [id number]/[id number] cardiomediastinal silhouette is stable. Similar bilateral opacities. No pneumothorax. The bony thorax appears intact.IMPRESSIONSimilar bilateral opacities.Electronically signed by: LUKASZ HAHN (Jun 02, 2023 05:36:53)
[2023-06-02 06:21] LABS: BASOPHILS # (AUTO) 0.1 X10^3/uL (0.0-0.1); BASOPHILS % (AUTO) 0.8 % (0.2-1.0); EOSINOPHILS # (AUTO) 0.2 x10^3/uL (0.0-0.2); HEMATOCRIT 23.9 % (36.0-47.0); HEMOGLOBIN 7.9 g/dL (12.0-16.0); LYMPHOCYTES # (AUTO) 1.8 X10^3/uL (1.3-2.9); LYMPHOCYTES % (AUTO) 11.9 % (21.0-51.0); MEAN CORPUSCULAR HEMOGLOBIN 27.6 pg (27.0-34.0); MEAN CORPUSCULAR VOLUME 83.5 fL (80.0-100.0); MEAN PLATELET VOLUME 9.7 fL (7.4-11.0); MONOCYTES # (AUTO) 2.4 x10^3/uL (0.3-0.8); MONOCYTES % (AUTO) 15.6 % (0.0-13.0); NEUTROPHILS # (AUTO) 10.9 x10^3/uL (2.2-4.8); NEUTROPHILS % (AUTO) 70.7 % (42.0-75.0); PLATELET COUNT 342 X10^3/uL (150.0-450.0); RED BLOOD COUNT 2.86 X10^6/uL (3.5-5.4); RED CELL DISTRIBUTION WIDTH 15.6 % (11.6-16.5); WHITE BLOOD COUNT 15.4 X10^3/uL (3.6-10.0)
[2023-06-02 06:42] LABS: ALANINE AMINOTRANSFERASE < 6 Units/L (12-78); ALBUMIN 3.2 g/dL (3.4-5.0); ALKALINE PHOSPHATASE 130 Units/L (46-116); ASPARTATE AMINO TRANSFERASE 37 Units/L (15-37); BLOOD UREA NITROGEN 38 mg/dL (7-18); CALCIUM 8.2 mg/dL (8.5-10.1); CARBON DIOXIDE 21.1 mmol/L (21-32); CHLORIDE 103 mmol/L (98-107); COR CA(FOR HYPOALB) 8.8 mg/dL (8.5-10.1); CREATININE 1.57 mg/dL (0.55-1.02); GLUCOSE 99 mg/dL (65-99); POTASSIUM 3.6 mmol/L (3.5-5.1); SODIUM 133 mmol/L (136-145); TOTAL PROTEIN 5.9 g/dL (6.4-8.2); eGFR NON BLACK RACES 34 (>60)
[2023-06-02] MEDS: XOPENEX 1.25 MG/3 ML NEBULE NEB SCH ×5 (08:13→20:57)
[2023-06-02] MEDS: PEPCID 20 MG VIAL 20 MG in NS 50 ML IV 50 ML IV SCH (08:35)
[2023-06-02] MEDS: ALBUMIN HUMAN 25%- 100 ML 100 ML IV SCH (08:35)
[2023-06-02] MEDS: PLAQUENIL PO SCH ×2 (08:36→20:21)
[2023-06-02] MEDS: LOVENOX INJ 30 MG SYR SC SCH (08:36)
[2023-06-02] MEDS: REQUIP PO SCH ×2 (08:36→20:21)
[2023-06-02] MEDS: PROTONIX INJ 40 MG VIAL IVP SCH ×2 (08:36→20:21)
[2023-06-02] MEDS: SINEMET CR 50/200 MG PO SCH ×4 (08:36→20:21)
[2023-06-02] MEDS: XANAX PO PRN ×2 (08:36→17:08)
[2023-06-02] MEDS: BIAXIN TAB 500 MG PO SCH ×2 (08:36→20:34)
[2023-06-02 08:46] LABS: BILIRUBIN,URINE NEGATIVE (NEGATIVE); BLOOD/HEMOGLOBIN,URINE 1+ (NEGATIVE); GLUCOSE, URINE NEGATIVE (NEGATIVE); KETONES,URINE NEGATIVE (NEGATIVE); LEUKOCYTE ESTERASE ,URINE 1+ (NEGATIVE); NITRITES,URINE NEGATIVE (NEGATIVE); PROTEIN,URINE 3+ (NEGATIVE); UROBILINOGEN,URINE NORMAL (NORMAL)
[2023-06-02 08:48] LABS: APPEARANCE,URINE CLEAR (CLEAR); COLOR,URINE DARK YELLOW (YELLOW)
[2023-06-02 08:53] LABS: BACTERIA,URINE 1+ /HPF (NEGATIVE); HYALINE CASTS, URINE MODERATE /LPF (NEGATIVE); RBC,URINE 0-2 /HPF (0-3); SQUAMOUS EPITHELIAL CELL,UR RARE /HPF (NEGATIVE)
--- NOTE | 2023-06-02 11:31 | PCM.PROG ---
Progress Note - Progress Note for Day of Date of Exam: 06/02/23 - Subjective Subjective: IS CURRENTLY INPATIENT STATUS FOR TREATMENT OF PNEUMONIA, ACUTE KIDNEY INJURY, DEHYDRATION, LEUKOCYTOSIS, INTRACTABLE DIARRHEA, H.PYLORI, AMS, AND GENERALIZED WEAKNESS. SHE HAS A PMH OF ESSENTIAL TREMORS, HYPERLIPIDEMIA, HTN, FIBROMYALGIA, ANXIETY, , AND HYSTERECTOMY. TODAY, SHE IS ALERT AND ORIENTED, LYING IN BED ON MORNING ROUNDS. SHE CONTINUES WITH WEAKNESS. SHE ALSO CONTINUES WITH A COUGH THAT IS PRODUCTIVE OF THICK, WHITE SPUTUM AND OCCASIONAL SHORTNESS OF BREATH. SHE REPORTS THAT THE DIARRHEA HAS RESOLVED. SHE DENIES NAUSEA OR VOMITING THIS MORNING. SHE HAS BEEN AMBULATING IN THE ROOM WITH ASSISTANCE. ON EXAMINATION, HEART IS REGULAR IN RATE AND RHYTHM. BILATERAL LUNGS ARE NOTED WITH DIMINISHED LUNG SOUNDS THROUGHOUT. ABDOMEN IS FLAT, SOFT, AND NON-TENDER WITH NORMAL BOWEL SOUNDS NOTED IN ALL QUADRANTS. GOOD RANGE OF MOTION NOTED TO UPPER AND LOWER EXTREMITIES WITH TRACE EDEMA NOTED. HER VITALS THIS MORNING WERE: 97.8-82-22-95%-96/54. LABS WERE OBTAINED. WBC 15.4, RBC 2.86, HGB 7.9, HCT 23.9, PLT COUNT 342, SODIUM 133, POTASSIUM 3.6, BUN 38, CREATININE 1.57, GLUCOSE 99, CALCIUM 8.2, TOTAL BILI 0.50, AST 37, ALT <6, ALK PHOS 130, BNP 1740, TOTAL PROTEIN 5.9, ALBUMIN 3.2. BLOOD AND SPUTUM CULTURES ARE PENDING. AIT CULTURE WAS POSITIVE FOR GROUP B STREP. A CHEST XRAY WAS OBTAINED THIS MORNING AND REVEALED: The cardiomediastinal silhouette is stable. Similar bilateral opacities. No pneumothorax. The bony thorax appears intact. SHE IS CURRENTLY RECEIVING NORMAL SALINE WITH 40MEQ KCL AT 20 ML/HR, TPN AT 40 ML/HR, ZOSYN 3.375G IV TID, CLARITHROMYCIN 400MG PO BID, PROTONIX 40MG IV BID, FAMOTIDINE 20MG DAILY, LOVENOX 30MG DAILY, AND TUCKS PADS WITH PREPARATION H AND LIDOCAINE OINTMENT FIVE TIMES A DAY NEEDED FOR HEMORRHOIDAL PAIN. HER HOME MEDICATIONS OF XANAX, SINEMET, COLACE, PLAQUENIL, MIRAPEX, REQUIP, AND CRESTOR WERE RESUMED. WE WILL CONTINUE WITH CURRENT PLAN OF CARE TODAY. WE WILL ORDER FOR HER TO WEAR THE BIPAP NEEDED FOR INCREASED SHORTNESS OF BREATH SINCE HER BLOOD PRESSURE IS TOO LOW TO RECEIVE ANY LASIX. OTHERWISE, WE WILL CONTINUE WITH CURRENT PLAN OF CARE. WE PLAN TO FOLLOW UP WITH AM LABS AND CONTINUE TO MONITOR. TIME SPENT ON CLINICAL ASSESSMENT, REVIEWING LABS AND IMAGING, DECISION MAKING, AND DOCUMENTATION GREATER THAN 45 MINUTES. - Past Medical Family Social History Past Med/Fam/Surg Hx: No changes since H&P Allergies: Allergies No Known Allergies Allergy (Verified 05/27/23 01:12) - Review of Systems ROS: No change since H&P - Vital Signs and I&O's Vital Signs: Vital Signs Temperature 97.8 F Temperature 98.1 F Pulse Rate [Left Brachial] 82 Pulse Rate [Left Brachial] 80 Pulse Rate 80 Respiratory Rate 22 Respiratory Rate 20 Blood Pressure [Left Arm] 96/54 Blood Pressure [Left Arm] 99/58 O2 Sat by Pulse Oximetry 96 O2 Sat by Pulse Oximetry 95 O2 Sat by Pulse Oximetry 98 Intake and Output: Intake & Output 05/30/23 05/31/23 06/01/23 06/02/23 11:59 11:59 11:59 11:59 Intake Total 3458 / 3458 3867 / 3867 2916 / 2916 2184 / 2184 Balance 3458 / 3458 3867 / 3867 2916 / 2916 2184 / 2184 - Physical Exam Oriented: Normal Eyes: Normal Ear: Normal Nose: Normal Throat: Normal Respiratory: Diminished Cardiovascular: Edema (TRACE EDEMA TO BILATERAL LOWER EXTREMITIES ) : Normal Auscultation: Bowel Sounds: Normal Palpation: Normal Tenderness: Normal Skin: Normal Musculoskeletal: Normal Psychiatric: Normal Mood Description: Calm Affect: Normal Speech Pattern: Clear, Appropriate - Laboratory and Diagnostics Result Diagrams: 06/02/23 05:22 06/02/23 05:22 Labs: 05/27/23 19:45 Blood Blood Culture - Final 05/27/23 19:40 Blood Blood Culture - Final 05/31/23 10:29 Sputum - Expectorated Sputum Sputum Culture - Preliminary 05/31/23 10:29 Sputum - Expectorated Sputum - Final 05/27/23 10:46 Stool Stool Culture - Final 05/27/23 10:46 Stool - Final Laboratory WBC 15.4 X10^3/uL (3.6-10.0) H 06/02/23 05:22 RBC 2.86 X10^6/uL (3.5-5.4) L 06/02/23 05:22 Hgb 7.9 g/dL (12.0-16.0) L 06/02/23 05:22 Hct 23.9 % (36.0-47.0) L 06/02/23 05:22 MCV 83.5 fL (80.0-100.0) 06/02/23 05:22 MCH 27.6 pg (27.0-34.0) 06/02/23 05:22 MCHC 33.0 g/dL (33.0-35.0) 06/02/23 05:22 RDW 15.6 % (11.6-16.5) 06/02/23 05:22 Plt Count 342 X10^3/uL (150.0-450.0) 06/02/23 05:22 Plt Count Comment Increased (ADEQUATE) A 05/27/23 01:16 MPV 9.7 fL (7.4-11.0) 06/02/23 05:22 Neut % (Auto) 70.7 % (42.0-75.0) 06/02/23 05:22 Lymph % (Auto) 11.9 % (21.0-51.0) L 06/02/23 05:22 [place] % (Auto) 15.6 % (0.0-13.0) H 06/02/23 05:22 Eos % (Auto) 1.0 % (0.9-2.9) 06/02/23 05:22 Baso % (Auto) 0.8 % (0.2-1.0) 06/02/23 05:22 Neut # (Auto) 10.9 x10^3/uL (2.2-4.8) H 06/02/23 05:22 Lymph # (Auto) 1.8 X10^3/uL (1.3-2.9) 06/02/23 05:22 [place] # (Auto) 2.4 x10^3/uL (0.3-0.8) H 06/02/23 05:22 Eos # (Auto) 0.2 x10^3/uL (0.0-0.2) 06/02/23 05:22 Baso # (Auto) 0.1 X10^3/uL (0.0-0.1) 06/02/23 05:22 Absolute Nucleated RBC 0.1 /100WBC 06/02/23 05:22 Total Counted 100 05/27/23 01:16 Neutrophils % (Manual) 85 % (39-76) H 05/27/23 01:16 Lymphocytes % (Manual) 4 % (13-43) L 05/27/23 01:16 Monocytes % (Manual) 11 % (4-9) H 05/27/23 01:16 Plt Morphology Comment Normal (NORMAL) 05/27/23 01:16 RBC Morphology Normal (NORMAL) 05/27/23 01:16 ESR 2 MM/HOUR (0-20) 05/28/23 10:25 Sodium 133 mmol/L (136-145) L 06/02/23 05:22 Corrected Sodium TNP 06/02/23 05:22 Potassium 3.6 mmol/L (3.5-5.1) 06/02/23 05:22 Chloride 103 mmol/L (98-107) 06/02/23 05:22 Carbon Dioxide 21.1 mmol/L (21-32) 06/02/23 05:22 BUN 38 mg/dL (7-18) H 06/02/23 05:22 Creatinine 1.57 mg/dL (0.55-1.02) H 06/02/23 05:22 Est GFR (MDRD) Af Amer 41 (>60) L 06/02/23 05:22 Est GFR (MDRD) Non-Af 34 (>60) L 06/02/23 05:22 Glucose 99 mg/dL (65-99) 06/02/23 05:22 Lactic Acid 1.0 mmol/L (0.4-2.0) 05/27/23 19:45 Calcium 8.2 mg/dL (8.5-10.1) L 06/02/23 05:22 Corrected Calcium 8.8 mg/dL (8.5-10.1) 06/02/23 05:22 Magnesium 2.1 mg/dL (2.0-2.9) 06/01/23 05:44 Total Bilirubin 0.50 mg/dL (0.2-1.0) 06/02/23 05:22 AST 37 Units/L (15-37) 06/02/23 05:22 ALT < 6 Units/L (12-78) L 06/02/23 05:22 Alkaline Phosphatase 130 Units/L (46-116) H 06/02/23 05:22 C-Reactive Protein 33.10 mg/L (0-3.0) H 05/28/23 05:12 B-Natriuretic Peptide 1740 pg/mL (0-79) H* 06/02/23 05:22 Total Protein 5.9 g/dL (6.4-8.2) L 06/02/23 05:22 Albumin 3.2 g/dL (3.4-5.0) L 06/02/23 05:22 Globulin 2.7 g/dL (2.5-4.5) 06/02/23 05:22 Albumin/Globulin Ratio 1.2 Ratio (1.1-2.1) 06/02/23 05:22 Specimen Type Catherized urine 06/02/23 08:19 Urine Color Dark yellow (YELLOW) 06/02/23 08:19 Urine Appearance Clear (CLEAR) 06/02/23 08:19 Urine pH 6.0 (5.0 - 8.0) 06/02/23 08:19 Ur Specific [place] 1.020 (1.000-1.030) 06/02/23 08:19 Urine Protein 3+ (NEGATIVE) 06/02/23 08:19 Urine Glucose (UA) Negative (NEGATIVE) 06/02/23 08:19 Urine Ketones Negative (NEGATIVE) 06/02/23 08:19 Urine Blood 1+ (NEGATIVE) 06/02/23 08:19 Urine Nitrite Negative (NEGATIVE) 06/02/23 08:19 Urine Bilirubin Negative (NEGATIVE) 06/02/23 08:19 Urine Urobilinogen Normal (NORMAL) 06/02/23 08:19 Ur Leukocyte Esterase 1+ (NEGATIVE) 06/02/23 08:19 Urine RBC 0-2 /HPF (0-3) 06/02/23 08:19 Urine WBC 0-2 /HPF (0-5) 06/02/23 08:19 Ur Squamous Epith Cells Rare /HPF (NEGATIVE) 06/02/23 08:19 Urine Bacteria 1+ /HPF (NEGATIVE) 06/02/23 08:19 Hyaline Casts Moderate /LPF (NEGATIVE) 06/02/23 08:19 Granular Casts Few /LPF (NEGATIVE) 05/27/23 08:25 Urine Mucus Rare /HPF (NEGATIVE) 05/27/23 08:25 Ur Culture Indicated? No/not indicated 06/02/23 08:19 Stl Occult Blood (IFOB) Negative (NEGATIVE) 05/27/23 10:46 Stool for White Cells Positive (NEGATIVE) A 05/27/23 10:46 Stl C. diff Tox B Gene Negative (NEGATIVE) 05/27/23 10:46 Stl C. diff [id number] Presumptive negative (NEGATIVE) 05/27/23 10:46 Stool H. pylori Ag Positive (NEGATIVE) A 05/27/23 10:46 Resp Viral Panel (PCR) See scanned report 05/31/23 10:18 - Plan (1) CHANDRA (acute kidney injury) Status: Acute Plan: NORMAL SALINE WITH 40MEQ KCL AT 20 ML/HR, TPN AT 40 ML/HR, ZOSYN 3.375G IV TID, CLARITHROMYCIN 400MG PO BID, XOPENEX NEBS QID, PROTONIX 40MG IV BID, FAMOTIDINE 20MG DAILY, LOVENOX 30MG DAILY (2) Pneumonia Status: Acute Qualifiers: Pneumonia type: due to unspecified organism Laterality: left Lung location: unspecified part of lung Qualified Code(s): J18.9 - Pneumonia, unspecified organism (3) Acute dehydration Status: Acute (4) Leukocytosis Status: Acute Qualifiers: Leukocytosis type: unspecified Qualified Code(s): D72.829 - Elevated white blood cell count, unspecified (5) Intractable diarrhea Status: Resolved Plan: STOOL CULTURES PENDING (6) H. pylori infection Status: Acute Plan: PEPCID IV DAILY, PROTONIX IV BID (7) Anemia Status: Acute Qualifiers: Anemia type: iron deficiency Iron deficiency anemia type: unspecified iron deficiency Qualified Code(s): D50.9 - Iron deficiency anemia, unspecified (8) Altered mental status Status: Acute Qualifiers: Altered mental status type: transient alteration of awareness Qualified Code(s): R40.4 - Transient alteration of awareness (9) Generalized weakness Status: Acute (10) HTN (hypertension) Status: Chronic Qualifiers: Hypertension type: primary hypertension Qualified Code(s): I10 - Essential (primary) hypertension Plan: STABLE. CONTINUE TO MONITOR (11) Hyperlipidemia Status: Chronic Qualifiers: Hyperlipidemia type: mixed hyperlipidemia Qualified Code(s): E78.2 - Mixed hyperlipidemia (12) Anxiety Status: Chronic
[2023-06-02] MEDS ORDERED: BUTT CREAM (COMPOUND) TOP PRN (12:28)
[2023-06-02] MEDS ORDERED: BUTT CREAM (COMPOUND) ONE (12:31)
[2023-06-02] MEDS: MVI IV SCH ×3 (13:22)
[2023-06-02] MEDS: [UNRECOGNIZED DRUG - OTHER] IV SCH ×3 (13:22)
[2023-06-02] MEDS: CLINIMIX IV SCH ×3 (13:22)
[2023-06-02] MEDS ORDERED: ZOFRAN INJ 4 MG VIAL ONE (15:45)
[2023-06-02] MEDS ORDERED: ZOFRAN INJ 4 MG VIAL IVP ONE (15:46)
[2023-06-02] MEDS: MIRAPEX TAB 0.25 MG PO SCH (20:20)
[2023-06-02] MEDS: CRESTOR TAB 10 MG PO SCH (20:21)
[2023-06-02] MEDS ORDERED: DRUG FILTER EXTENSION SET ONE (23:30)
[2023-06-03] MEDS: MVI IV SCH ×3
[2023-06-03] MEDS: [UNRECOGNIZED DRUG - OTHER] IV SCH ×3
[2023-06-03] MEDS: CLINIMIX IV SCH ×3
[2023-06-03] MEDS: NS + KCL 40 MEQ/L 1,000 ML IV SCH ×2 (03:08→17:36)
--- NOTE | 2023-06-03 04:53 | RAD ---
HISTORYSOB Relevant Clinical InformationSTUDYCHEST, 1 [id number] trachea is midline. The cardiac silhouette is stable. Bilateral pulmonary opacities unchanged. Small bilateral pleural effusions.. The bony thorax is unremarkable.IMPRESSIONBilateral pulmonary opacities unchanged.Small bilateral pleural effusions.No significant change from 06/02/2023Electronically signed by: Carlos Haynes (Jun 03, 2023 04:52:25)
[2023-06-03] MEDS: ZOSYN VIAL 3.375 GRAMS 3.375 G in NS 100 ML IV 100 ML IV SCH ×3 (05:00→22:40)
[2023-06-03 06:23] LABS: BASOPHILS # (AUTO) 0.1 X10^3/uL (0.0-0.1); BASOPHILS % (AUTO) 0.7 % (0.2-1.0); EOSINOPHILS # (AUTO) 0.1 x10^3/uL (0.0-0.2); EOSINOPHILS % (AUTO) 0.4 % (0.9-2.9); HEMATOCRIT 23.8 % (36.0-47.0); HEMOGLOBIN 7.8 g/dL (12.0-16.0); LYMPHOCYTES # (AUTO) 1.5 X10^3/uL (1.3-2.9); MEAN CORPUSCULAR HEMOGLOBIN 27.4 pg (27.0-34.0); MEAN CORPUSCULAR HGB CONC 32.9 g/dL (33.0-35.0); MEAN CORPUSCULAR VOLUME 83.3 fL (80.0-100.0); MEAN PLATELET VOLUME 9.4 fL (7.4-11.0); MONOCYTES # (AUTO) 2.7 x10^3/uL (0.3-0.8); MONOCYTES % (AUTO) 18.1 % (0.0-13.0); NEUTROPHILS # (AUTO) 10.7 x10^3/uL (2.2-4.8); NEUTROPHILS % (AUTO) 70.8 % (42.0-75.0); PLATELET COUNT 350 X10^3/uL (150.0-450.0); RED BLOOD COUNT 2.85 X10^6/uL (3.5-5.4); RED CELL DISTRIBUTION WIDTH 15.5 % (11.6-16.5); WHITE BLOOD COUNT 15.1 X10^3/uL (3.6-10.0)
[2023-06-03 06:55] LABS: ALANINE AMINOTRANSFERASE < 6 Units/L (12-78); ALBUMIN 3.1 g/dL (3.4-5.0); ALKALINE PHOSPHATASE 157 Units/L (46-116); ASPARTATE AMINO TRANSFERASE 38 Units/L (15-37); BLOOD UREA NITROGEN 48 mg/dL (7-18); CALCIUM 8.6 mg/dL (8.5-10.1); CARBON DIOXIDE 18.3 mmol/L (21-32); CHLORIDE 103 mmol/L (98-107); COR CA(FOR HYPOALB) 9.3 mg/dL (8.5-10.1); CREATININE 1.77 mg/dL (0.55-1.02); GLUCOSE 100 mg/dL (65-99); POTASSIUM 4.1 mmol/L (3.5-5.1); SODIUM 133 mmol/L (136-145); TOTAL PROTEIN 5.8 g/dL (6.4-8.2); eGFR NON BLACK RACES 30 (>60)
[2023-06-03] MEDS: XOPENEX 1.25 MG/3 ML NEBULE NEB SCH ×4 (08:36→21:00)
[2023-06-03] MEDS: PROTONIX INJ 40 MG VIAL IVP SCH ×2 (09:20→20:44)
[2023-06-03] MEDS: REQUIP PO SCH ×2 (09:20→20:43)
[2023-06-03] MEDS: PLAQUENIL PO SCH ×2 (09:20→20:43)
[2023-06-03] MEDS: LOVENOX INJ 30 MG SYR SC SCH (09:20)
[2023-06-03] MEDS: PEPCID 20 MG VIAL 20 MG in NS 50 ML IV 50 ML IV SCH (09:20)
[2023-06-03] MEDS: BIAXIN TAB 500 MG PO SCH ×2 (09:21→20:44)
[2023-06-03] MEDS: SINEMET CR 50/200 MG PO SCH ×4 (09:21→20:44)
[2023-06-03] MEDS: XANAX PO PRN ×2 (09:39→17:44)
[2023-06-03] MEDS: ALBUMIN HUMAN 25%- 100 ML 100 ML IV SCH (10:06)
[2023-06-03] MEDS ORDERED: PROCRIT or EPOGEN VIAL 10,000 UNITS SC ONE (10:15)
[2023-06-03] MEDS ORDERED: DIFLUCAN 200 MG IV PREMIX* 200 MG/100 ML BAG IV SCH (11:00)
[2023-06-03] MEDS ORDERED: DIFLUCAN 100 MG IV (MIX by PHARMACY)* 100 MG/50 ML BAG IV SCH (11:00)
--- NOTE | 2023-06-03 11:54 | PCM.PROG ---
Progress Note - Progress Note for Day of Date of Exam: 06/03/23 - Subjective Subjective: IS CURRENTLY INPATIENT STATUS FOR TREATMENT OF PNEUMONIA, ACUTE KIDNEY INJURY, DEHYDRATION, LEUKOCYTOSIS, H.PYLORI, AMS, AND GENERALIZED WEAKNESS. SHE HAS A PMH OF ESSENTIAL TREMORS, HYPERLIPIDEMIA, HTN, FIBROMYALGIA, ANXIETY, , AND HYSTERECTOMY. TODAY, SHE IS ALERT AND ORIENTED, SITTING UP IN BED ON MORNING ROUNDS. SHE CONTINUES WITH WEAKNESS. SHE ALSO CONTINUES WITH A PRODUCTIVE COUGH AND OCCASIONAL SHORTNESS OF BREATH. SHE DENIES NAUSEA OR VOMITING THIS MORNING. HER FAMILY IS AT BEDSIDE AND REPORTS THAT SHE HAS HAD DECREASED APPETITE AND WEIGHT LOSS FOR THE PAST SEVERAL MONTHS. ON EXAMINATION, HEART IS REGULAR IN RATE AND RHYTHM. BILATERAL LUNGS ARE NOTED WITH RHONCHI THROUGHOUT. ABDOMEN IS FLAT, SOFT, AND NON-TENDER WITH NORMAL BOWEL SOUNDS NOTED IN ALL QUADRANTS. A PATINO CATHETER IS NOTED TO BEDSIDE DRAINAGE. TRACE EDEMA IS NOTED. HER VITALS THIS MORNING WERE: 98.3-81-20-95%-115/61. SHE DID UTILIZE THE BIPAP SOME THROUGHOUT THE DAY YESTERDAY, BUT SHE IS CURRENTLY WEARING OXYGEN VIA NASAL CANNULA AT 2 LPM. LABS WERE OBTAINED. WBC 15.1, RBC 2.85, HGB 7.8, HCT 23.8, PLT COUNT 350, SODIUM 133, POTASSIUM 4.1, CHLORIDE 103, CARBON DIOXIDE 18.3, BUN 48, CREATININE 1.77, GLUCOSE 100, CALCIUM 8.6, TOTAL BILI 0.50, AST 38, ALT <6, ALK PHOS 157, BNP 1920, TOTAL PROTEIN 5.8, ALBUMIN 3.1. SPUTUM AND AIT CULTURES WERE POSITIVE FOR GROUP B STREP. THERE IS ALSO GROWTH OF YEAST. A CHEST XRAY WAS OBTAINED THIS MORNING AND REVEALED: Bilateral pulmonary opacities unchanged. Small bilateral pleural effusions. No significant change from 06/02/2023 SHE IS CURRENTLY RECEIVING NORMAL SALINE WITH 40MEQ KCL AT 20 ML/HR, TPN AT 40 ML/HR, ZOSYN 3.375G IV TID, CLARITHROMYCIN 400MG PO BID, PROTONIX 40MG IV BID, FAMOTIDINE 20MG DAILY, LOVENOX 30MG DAILY, AND TUCKS PADS WITH PREPARATION H AND LIDOCAINE OINTMENT FIVE TIMES A DAY NEEDED FOR HEMORRHOIDAL PAIN. HER HOME MEDICATIONS OF XANAX, SINEMET, COLACE, PLAQUENIL, MIRAPEX, REQUIP, AND CRESTOR WERE RESUMED. TODAY, WE WILL HOLD THE TPN AND INCREASE HER MAINTENANCE FLUIDS TO 60 ML/HR. WE WILL ADMINISTER PROCRIT 5000 UNITS SC X 1 AND START DIFLUCAN 100MG IV DAILY. WE WILL ORDER FOR HER TO WEAR THE SMART VEST A FEW TIMES A DAY. WE WILL ALSO ORDER A CHEST CT WITHOUT CONTRAST AND AN ABDOMEN/PELVIS CT WITHOUT CONTRAST. OTHERWISE, WE WILL CONTINUE WITH CURRENT PLAN OF CARE. WE PLAN TO FOLLOW UP WITH AM LABS AND CONTINUE TO MONITOR. TIME SPENT ON CLINICAL ASSESSMENT, REVIEWING LABS AND IMAGING, DECISION MAKING, AND DOCUMENTATION GREATER THAN 45 MINUTES. - Past Medical Family Social History Past Med/Fam/Surg Hx: No changes since H&P Allergies: Allergies No Known Allergies Allergy (Verified 05/27/23 01:12) - Review of Systems ROS: No change since H&P - Vital Signs and I&O's Vital Signs: Vital Signs Temperature 98.3 F Pulse Rate [Left Brachial] 81 Respiratory Rate 20 Respiratory Rate 20 Blood Pressure [Right Arm] 115/61 O2 Sat by Pulse Oximetry 95 O2 Sat by Pulse Oximetry 95 Intake and Output: Intake & Output 05/31/23 06/01/23 06/02/23 06/03/23 11:59 11:59 11:59 11:59 Intake Total 3867 / 3867 2916 / 2916 2184 / 2184 1891 / 1891 Output Total 650 / 650 Balance 3867 / 3867 2916 / 2916 2184 / 2184 1241 / 1241 - Physical Exam Oriented: Normal Eyes: Normal Ear: Normal Nose: Normal Throat: Normal Respiratory: Diminished, Rhonchi Cardiovascular: Edema (TRACE EDEMA TO BILATERAL LOWER EXTREMITIES ) : Normal Auscultation: Bowel Sounds: Normal Palpation: Normal Tenderness: Normal Skin: Normal Musculoskeletal: Normal Psychiatric: Normal Mood Description: Calm Affect: Normal Speech Pattern: Clear, Appropriate - Laboratory and Diagnostics Result Diagrams: 06/03/23 05:20 06/03/23 05:20 Labs: 05/31/23 10:29 Sputum - Expectorated Sputum Sputum Culture - Preliminary Strep Agalactiae - (Group B) 05/31/23 10:29 Sputum - Expectorated Sputum - Final 05/27/23 19:45 Blood Blood Culture - Final 05/27/23 19:40 Blood Blood Culture - Final 05/27/23 10:46 Stool Stool Culture - Final 05/27/23 10:46 Stool - Final Laboratory WBC 15.1 X10^3/uL (3.6-10.0) H 06/03/23 05:20 RBC 2.85 X10^6/uL (3.5-5.4) L 06/03/23 05:20 Hgb 7.8 g/dL (12.0-16.0) L 06/03/23 05:20 Hct 23.8 % (36.0-47.0) L 06/03/23 05:20 MCV 83.3 fL (80.0-100.0) 06/03/23 05:20 MCH 27.4 pg (27.0-34.0) 06/03/23 05:20 MCHC 32.9 g/dL (33.0-35.0) L 06/03/23 05:20 RDW 15.5 % (11.6-16.5) 06/03/23 05:20 Plt Count 350 X10^3/uL (150.0-450.0) 06/03/23 05:20 Plt Count Comment Increased (ADEQUATE) A 05/27/23 01:16 MPV 9.4 fL (7.4-11.0) 06/03/23 05:20 Neut % (Auto) 70.8 % (42.0-75.0) 06/03/23 05:20 Lymph % (Auto) 10.0 % (21.0-51.0) L 06/03/23 05:20 [place] % (Auto) 18.1 % (0.0-13.0) H 06/03/23 05:20 Eos % (Auto) 0.4 % (0.9-2.9) L 06/03/23 05:20 Baso % (Auto) 0.7 % (0.2-1.0) 06/03/23 05:20 Neut # (Auto) 10.7 x10^3/uL (2.2-4.8) H 06/03/23 05:20 Lymph # (Auto) 1.5 X10^3/uL (1.3-2.9) 06/03/23 05:20 [place] # (Auto) 2.7 x10^3/uL (0.3-0.8) H 06/03/23 05:20 Eos # (Auto) 0.1 x10^3/uL (0.0-0.2) 06/03/23 05:20 Baso # (Auto) 0.1 X10^3/uL (0.0-0.1) 06/03/23 05:20 Absolute Nucleated RBC 0.1 /100WBC 06/03/23 05:20 Total Counted 100 05/27/23 01:16 Neutrophils % (Manual) 85 % (39-76) H 05/27/23 01:16 Lymphocytes % (Manual) 4 % (13-43) L 05/27/23 01:16 Monocytes % (Manual) 11 % (4-9) H 05/27/23 01:16 Plt Morphology Comment Normal (NORMAL) 05/27/23 01:16 RBC Morphology Normal (NORMAL) 05/27/23 01:16 ESR 2 MM/HOUR (0-20) 05/28/23 10:25 Sodium 133 mmol/L (136-145) L 06/03/23 05:20 Corrected Sodium TNP 06/03/23 05:20 Potassium 4.1 mmol/L (3.5-5.1) 06/03/23 05:20 Chloride 103 mmol/L (98-107) 06/03/23 05:20 Carbon Dioxide 18.3 mmol/L (21-32) L 06/03/23 05:20 BUN 48 mg/dL (7-18) H 06/03/23 05:20 Creatinine 1.77 mg/dL (0.55-1.02) H 06/03/23 05:20 Est GFR (MDRD) Af Amer 36 (>60) L 06/03/23 05:20 Est GFR (MDRD) Non-Af 30 (>60) L 06/03/23 05:20 Glucose 100 mg/dL (65-99) H 06/03/23 05:20 Lactic Acid 1.0 mmol/L (0.4-2.0) 05/27/23 19:45 Calcium 8.6 mg/dL (8.5-10.1) 06/03/23 05:20 Corrected Calcium 9.3 mg/dL (8.5-10.1) 06/03/23 05:20 Magnesium 2.1 mg/dL (2.0-2.9) 06/01/23 05:44 Total Bilirubin 0.50 mg/dL (0.2-1.0) 06/03/23 05:20 AST 38 Units/L (15-37) H 06/03/23 05:20 ALT < 6 Units/L (12-78) L 06/03/23 05:20 Alkaline Phosphatase 157 Units/L (46-116) H 06/03/23 05:20 C-Reactive Protein 33.10 mg/L (0-3.0) H 05/28/23 05:12 B-Natriuretic Peptide 1920 pg/mL (0-79) H* 06/03/23 05:20 Total Protein 5.8 g/dL (6.4-8.2) L 06/03/23 05:20 Albumin 3.1 g/dL (3.4-5.0) L 06/03/23 05:20 Globulin 2.7 g/dL (2.5-4.5) 06/03/23 05:20 Albumin/Globulin Ratio 1.1 Ratio (1.1-2.1) 06/03/23 05:20 Specimen Type Catherized urine 06/02/23 08:19 Urine Color Dark yellow (YELLOW) 06/02/23 08:19 Urine Appearance Clear (CLEAR) 06/02/23 08:19 Urine pH 6.0 (5.0 - 8.0) 06/02/23 08:19 Ur Specific [place] 1.020 (1.000-1.030) 06/02/23 08:19 Urine Protein 3+ (NEGATIVE) 06/02/23 08:19 Urine Glucose (UA) Negative (NEGATIVE) 06/02/23 08:19 Urine Ketones Negative (NEGATIVE) 06/02/23 08:19 Urine Blood 1+ (NEGATIVE) 06/02/23 08:19 Urine Nitrite Negative (NEGATIVE) 06/02/23 08:19 Urine Bilirubin Negative (NEGATIVE) 06/02/23 08:19 Urine Urobilinogen Normal (NORMAL) 06/02/23 08:19 Ur Leukocyte Esterase 1+ (NEGATIVE) 06/02/23 08:19 Urine RBC 0-2 /HPF (0-3) 06/02/23 08:19 Urine WBC 0-2 /HPF (0-5) 06/02/23 08:19 Ur Squamous Epith Cells Rare /HPF (NEGATIVE) 06/02/23 08:19 Urine Bacteria 1+ /HPF (NEGATIVE) 06/02/23 08:19 Hyaline Casts Moderate /LPF (NEGATIVE) 06/02/23 08:19 Granular Casts Few /LPF (NEGATIVE) 05/27/23 08:25 Urine Mucus Rare /HPF (NEGATIVE) 05/27/23 08:25 Ur Culture Indicated? No/not indicated 06/02/23 08:19 Stl Occult Blood (IFOB) Negative (NEGATIVE) 05/27/23 10:46 Stool for White Cells Positive (NEGATIVE) A 05/27/23 10:46 Stl C. diff Tox B Gene Negative (NEGATIVE) 05/27/23 10:46 Stl C. diff [id number] Presumptive negative (NEGATIVE) 05/27/23 10:46 Stool H. pylori Ag Positive (NEGATIVE) A 05/27/23 10:46 Resp Viral Panel (PCR) See scanned report 05/31/23 10:18 - Plan (1) CHANDRA (acute kidney injury) Status: Acute Plan: NORMAL SALINE WITH 40MEQ KCL AT 60 ML/HR, ZOSYN 3.375G IV TID, CLARITHROMYCIN 400MG PO BID, DIFLUCAN 100MG IV DAILY, XOPENEX NEBS QID, PROTONIX 40MG IV BID, FAMOTIDINE 20MG DAILY, LOVENOX 30MG DAILY (2) Pneumonia Status: Acute Qualifiers: Pneumonia type: due to unspecified organism Laterality: left Lung location: unspecified part of lung Qualified Code(s): J18.9 - Pneumonia, unspecified organism (3) Acute dehydration Status: Acute (4) Leukocytosis Status: Acute Qualifiers: Leukocytosis type: unspecified Qualified Code(s): D72.829 - Elevated white blood cell count, unspecified (5) Intractable diarrhea Status: Resolved Plan: STOOL CULTURES PENDING (6) H. pylori infection Status: Acute Plan: PEPCID IV DAILY, PROTONIX IV BID (7) Anemia Status: Acute Qualifiers: Anemia type: iron deficiency Iron deficiency anemia type: unspecified iron deficiency Qualified Code(s): D50.9 - Iron deficiency anemia, unspecified Plan: ADMINISTER PROCRIT (8) Altered mental status Status: Acute Qualifiers: Altered mental status type: transient alteration of awareness Qualified Code(s): R40.4 - Transient alteration of awareness (9) Generalized weakness Status: Acute (10) HTN (hypertension) Status: Chronic Qualifiers: Hypertension type: primary hypertension Qualified Code(s): I10 - Essential (primary) hypertension Plan: STABLE. CONTINUE TO MONITOR (11) Hyperlipidemia Status: Chronic Qualifiers: Hyperlipidemia type: mixed hyperlipidemia Qualified Code(s): E78.2 - Mixed hyperlipidemia (12) Anxiety Status: Chronic
--- NOTE | 2023-06-03 12:56 | CT ---
CHEST, ABDOMEN AND PELVIS w/O CONCLINICAL INDICATION: Shortness of breath abdominal pain and weight loss.PROCEDURE: Noncontrast CT images were obtained through the chest abdomen and pelvis. Dose reduction techniques including Automated Exposure Control (AEC) and adjustment of mA and kV were utlized.COMPARISON: [None]FINDINGS:The sensitivity for focal lesion detection within the mediastinum and solid abdominal viscera is diminished without the use of IV contrast.CT chest: Cardiomegaly. Severe coronary calcification.. No pericardial effusion. Shotty mediastinal adenopathy.. Large bilateral pleural effusions with adjacent atelectasis. Ground-glass opacities throughout the aerated portions of the upper lobes..Airways are patent . No suspicious pulmonary nodules or masses .CT Abdomen and pelvis : Liver measures 20 cm craniocaudal dimension. Spleen within normal size limits. Probable splenic artery aneurysm measuring 1.3 cm.. No focal lesions . No ductal dilitation.Gallstones within the gallbladder. Gallbladder wall thickening present..Region of the pancreatic head and proximal duodenum are somewhat indistinct. Adrenal glands are normal . Kidneys are without nephrolithiasis or hydronephrosis .Diverticulosis without acute diverticular inflammation. No evidence of bowel obstruction.. Mesenteric edema and small volume ascites. No abnormal appearing mesenteric or retroperitoneal lymph nodes . No free fluid or fluid collections .Bladder decompressed by Galvan catheter. Uterus not seen. No pelvic adenopathy or fluid collections.No aggressive osseous lesions.IMPRESSION:1. Cardiomegaly with pulmonary edema and large bilateral effusions. Ground-glass in the aerated portions of the lungs may represent acute atypical infection versus alveolar edema. Correlate clinically.2. Indistinctness in the region of the pancreatic head and duodenum. This should be further evaluated by MRI with without contrast.3. Overall volume overload as evidence by anasarca and mesenteric edema.4. Probable small splenic artery aneurysm.Electronically signed by: DIVINA BELTRÁN (Jun 03, 2023 12:55:17)
[2023-06-03] MEDS ORDERED: ALBUMIN HUMAN 25%- 100 ML 100 ML IV ONE (20:38)
[2023-06-03] MEDS ORDERED: LASIX IVP ONE ×3 (20:38→23:33)
[2023-06-03] MEDS: CRESTOR TAB 10 MG PO SCH (20:44)
[2023-06-03] MEDS: MIRAPEX TAB 0.25 MG PO SCH (20:44)
[2023-06-03 21:00] LABS: ABG BASE EXCESS -9.7 mmol/L (-2.0-2.0); ABG HCO3 18.7 mmol/L (22-26)
[2023-06-03 23:41] VITALS: RESP 20; TEMP 98.7; O2SAT 95
[2023-06-04 00:42] VITALS: BP 98/68
[2023-06-04 01:03] VITALS: PULSE 102
--- NOTE | 2023-06-04 07:50 | US ---
HISTORYAcute kidney injurySTUDYBilateral renal sonogramTechnique: Multiple grayscale sonographic images were obtained.COMPARISONNoneFINDINGSRight kidney measured 10.2 x 4.1 x 5.4 cm. Cortical thickness and cortical echogenicity were normal. No solid masses, hydronephrosis, stones, or perinephric fluid collections were identified. Left kidney measured 11 x 4.4 x 4.8 cm. Cortical thickness and cortical echogenicity were normal. No solid masses, hydronephrosis, stones, or perinephric fluid collections were identified. Bladder was drained by a Galvan catheter.IMPRESSIONNo sonographic renal abnormality identifiedNo evidence for hydronephrosisElectronically signed by: LUKASZ HAHN (Jun 04, 2023 07:48:34)
== END 2023-06-04 00:45 | disposition short-term general hospital (02) | DRG 682 ==
LOC: MED/SURG 00:24 → ER 00:24 → MED/SURG 06:41
PROVIDERS: ADMIT Internal Medicine; ATTEND Internal Medicine
DX: J18.8 Other pneumonia, unspecified organism; F41.8 Other specified anxiety disorders; R19.7 Diarrhea, unspecified; R06.02 Shortness of breath; E78.2 Mixed hyperlipidemia; I10 Essential (primary) hypertension; D50.8 Other iron deficiency anemias; K62.89 Other specified diseases of anus and rectum; E86.0 Dehydration; B95.1 Streptococcus, group B, as the cause of diseases classified elsewhere; R53.1 Weakness; J90 Pleural effusion, not elsewhere classified; B96.81 Helicobacter pylori [H. pylori] as the cause of diseases classified elsewhere; M79.7 Fibromyalgia; R40.4 Transient alteration of awareness; N17.8 Other acute kidney failure

== ENCOUNTER 2023-06-17 14:25 | Inpatient (IN) ==
[2023-06-17] MEDS ORDERED: ZOFRAN INJ 4 MG VIAL IVP PRN (15:00)
[2023-06-17] MEDS ORDERED: MUCOMYST (RESPIRATORY USE ONLY) NEB PRN (16:01)
[2023-06-17] MEDS: DUONEB 0.5 MG/3 MG (3 mL) NEB SCH ×2 (18:35→21:10)
[2023-06-17] MEDS: SINEMET CR 50/200 MG PO SCH ×2 (19:35→20:16)
[2023-06-17] MEDS ORDERED: RESTORIL CAP 15 MG PO PRN (19:49)
[2023-06-17] MEDS ORDERED: PATIENT'S HOME MEDICATION PO PRN (19:58)
[2023-06-17] MEDS: MIRAPEX TAB 0.25 MG PO SCH (20:15)
[2023-06-17] MEDS: OMNICEF CAP 300 MG PO SCH (20:16)
[2023-06-17] MEDS: PLAQUENIL PO SCH (20:16)
[2023-06-17] MEDS: RESTORIL CAP 15 MG PO PRN (20:16)
[2023-06-17] MEDS: CRESTOR TAB 10 MG PO SCH (20:16)
[2023-06-17] MEDS ORDERED: AMBIEN PO PRN (21:00)
[2023-06-17] MEDS ORDERED: OMNICEF CAP 300 MG PO SCH (21:00)
[2023-06-18] MEDS: VISTARIL PO PRN ×2 (01:56→20:20)
[2023-06-18 05:11] LABS: BASOPHILS # (AUTO) 0.2 X10^3/uL (0.0-0.1); BASOPHILS % (AUTO) 0.9 % (0.2-1.0); EOSINOPHILS # (AUTO) 0.3 x10^3/uL (0.0-0.2); EOSINOPHILS % (AUTO) 1.5 % (0.9-2.9); HEMATOCRIT 26.6 % (36.0-47.0); HEMOGLOBIN 8.8 g/dL (12.0-16.0); LYMPHOCYTES # (AUTO) 1.3 X10^3/uL (1.3-2.9); LYMPHOCYTES % (AUTO) 7.5 % (21.0-51.0); MEAN CORPUSCULAR HEMOGLOBIN 27.3 pg (27.0-34.0); MEAN CORPUSCULAR HGB CONC 33.1 g/dL (33.0-35.0); MEAN CORPUSCULAR VOLUME 82.6 fL (80.0-100.0); MEAN PLATELET VOLUME 10.8 fL (7.4-11.0); MONOCYTES % (AUTO) 5.6 % (0.0-13.0); NEUTROPHILS # (AUTO) 14.7 x10^3/uL (2.2-4.8); NEUTROPHILS % (AUTO) 84.5 % (42.0-75.0); PLATELET COUNT 127 X10^3/uL (150.0-450.0); RED BLOOD COUNT 3.22 X10^6/uL (3.5-5.4); RED CELL DISTRIBUTION WIDTH 15.2 % (11.6-16.5); WHITE BLOOD COUNT 17.3 X10^3/uL (3.6-10.0)
[2023-06-18 05:27] LABS: ALANINE AMINOTRANSFERASE 19 Units/L (12-78); ALBUMIN 2.4 g/dL (3.4-5.0); ALKALINE PHOSPHATASE 230 Units/L (46-116); ASPARTATE AMINO TRANSFERASE 54 Units/L (15-37); BLOOD UREA NITROGEN 37 mg/dL (7-18); CALCIUM 8.1 mg/dL (8.5-10.1); CARBON DIOXIDE 36.7 mmol/L (21-32); CHLORIDE 103 mmol/L (98-107); COR CA(FOR HYPOALB) 9.4 mg/dL (8.5-10.1); CREATININE 0.96 mg/dL (0.55-1.02); GLUCOSE 96 mg/dL (65-99); POTASSIUM 3.3 mmol/L (3.5-5.1); SODIUM 143 mmol/L (136-145); eGFR NON BLACK RACES > 60 (>60)
[2023-06-18] MEDS ORDERED: CONSULT PHARMACY - POTASSIUM & MAGNESIUM XX SCH ×2 (07:00→09:00)
[2023-06-18] MEDS: MAG-OX TAB PO SCH ×3 (08:27→20:20)
[2023-06-18] MEDS: VSL#3 PO SCH (08:27)
[2023-06-18] MEDS: OMNICEF CAP 300 MG PO SCH ×2 (08:27→20:20)
[2023-06-18] MEDS: SINEMET CR 50/200 MG PO SCH ×4 (08:27→20:20)
[2023-06-18] MEDS: ASPIRIN EC 81 MG PO SCH (08:27)
[2023-06-18] MEDS: LASIX PO SCH (08:28)
[2023-06-18] MEDS: MICRO K EXTEN CAP 10 MEQ PO SCH (08:28)
[2023-06-18] MEDS: PLAQUENIL PO SCH ×2 (08:28→20:19)
[2023-06-18] MEDS: PROTONIX TAB 40 MG PO SCH (08:28)
[2023-06-18] MEDS: LOVENOX INJ 40 MG SYR SC SCH (08:45)
[2023-06-18] MEDS ORDERED: VITAMIN B-12 INJ IM ONE (08:46)
[2023-06-18] MEDS: DUONEB 0.5 MG/3 MG (3 mL) NEB SCH ×3 (08:50→17:09)
[2023-06-18 09:43] LABS: IRON 25 ug/dL (50-175)
[2023-06-18] MEDS: VITAMIN D3 25 mcg (1,000 UNITS) PO SCH (10:33)
[2023-06-18] MEDS: K-DUR TAB 20 MEQ PO SCH ×2 (10:33→13:27)
--- NOTE | 2023-06-18 11:07 | RAD ---
EXAM:CHEST x-ray, 1 VIEWHISTORY:HX OF PNEUMONIA, CHF -COMPARISON:X-ray 06/03/2023FINDINGS:Bibasilar opacities are seen probably due to moderate pleural effusions and atelectasis. Pneumonia can not be excluded. Probable mild CHF and pulmonary edema are present, improved from prior study. No pneumothorax is seen.IMPRESSION:Probable CHF with pulmonary edema and pleural effusions. However, pneumonia is not excluded at the lung bases given the opacities. Continued x-ray follow-up is recommended.THIS IS AN ELECTRONICALLY VERIFIED FINAL REPORT06/18/2023 11:04 AM - Electronically signed by Kelvin Bello MD
[2023-06-18] MEDS: PERIACTIN TAB 4 MG PO SCH ×2 (11:33→16:58)
--- NOTE | 2023-06-18 12:22 | PT/OTEVAL ---
PT/OT OBJECTIVES - HISTORY Prescription: PT Consult Diagnosis: CHF, Pneumonia Precautions: Fall Risk PMH: Anxiety, Dyslipidemia, HTN, Essential Tremors, Fibromyalgia, , Hysterectomy Prior Level of Function: Independent Other: Prior to hospitalization, pt resided at home with her in a single story home with 1 step to enter. Pt was independent with all mobility tasks within home and community without a device. Would use SPC or rollator if needed for longer community distances. Pt has an extremely supportive family who can help as needed upon discharge. DME: Rollator, SPC, Shower Chair, BSC, Wheelchair History of Present Illness: Pt is a 77 year old female who was initially admitted to [facility] on 05/27/2023 due to weakness, AMS & intractable diarrhea. Pt was treated; however, was still declining and found to be in congestive heart failure so the decision was made for patient to transfer to [facility] on 06/04/2023 where she was admitted with a diagnosis of CHF. Pt was treated and stabilized medically. Pt noted with ongoing weakness and inability to return home at this level and decision was made for patient to return to [facility] for swing bed rehabiliation. Pt was admitted to facility late afternoon/early evening of 06/17/2023. - COGNITION Mental Status: Alert, Oriented, Name, Date, Place, Purpose Communication Status: Verbal Ability to Follow Directions: 2 Step Affect: Appropriate - PAIN No signs of pain Pain Scale: No Pain Comments: Reports no pain at time of evaluation. - BED MOBILITY Rolling: Moderate Scooting: Maximum - TRANSFERS Supine to Sit: Maximum Sit to Stand: Maximum Sit or Stand Pivot: Maximum, x2 Safety (requires cues for:): Hand Placement Precaution - BALANCE Static Sitting: Good Standing: Poor Balance Comment: Poor+ Dynamic Sitting: Good Standing: Poor Balance Comment: Poor- - NEUROMOTOR/SENSATION Demetri. Lower Ext Sensation: WFL Coordination: WFL Proprioception: WFL - HAND DOMINANCE Extremity Function: Hand Dominance: Right - ROM Left LE ROM: WFL Muscle Tone: WFL Right LE ROM: Impaired Muscle Tone: WFL Comment: Decreased R Ankle DF ROM (-10 degrees); R Hamstring (-10 degrees) - STRENGTH Left LE Strength Number: 3 Right LE Strength Number: 2 Other comment: 2+/5 - GAIT Comments: Non-ambulatory at time of evaluation - TREATMENT Date: 06/18/23 Time: 09:00 Treatment Type: Evaluation Treatment Provided: Therapeutic Activities, Therapeutic Excersises - TOTAL TREATMENT TIME Total Time: 105 - POST ASSESSMENT Post Assessment Comment: Pt was admitted to facility for swing bed rehabiliation program following prolonged hospitalization for CHF and pneumonia. Pt is noted with deficits to BLE strength, balance, functional activity tolerance and over all independence with functional mobility tasks from PLOF placing pt at an increased risk for falls . Pt without a history of falls but does report having a big fear of falling. Pt required max assist bed mobility tasks and sit to stand transfers, max assist x 2 for stand pivot transfers. Pt unable to achieve full upright standing position despite max assist. Standing tolerance x 30 seconds at most. Pt performed 3 trials of sit to stand transfers. Pt then instructed in and completed the following exercises to promote increased strength to allow for increased participation in functional mobility tasks including: Seated: B Marches (2lb on LLE), B LAQs (2lb on LLE), B Ankle PF (2lb on LLE), B Hip Adduction against Yellow Theraband, B Hip Abduction against Yellow Theraband and B Hamstring Curls with Yellow Theraband (2 x 10 of each); Passive Stretching to R Ankle into DF and R Knee into Extension with gentle oscillations as needed to further increase ROM. Review of PT POC and goals with pt and family. Family will be able to provide support at home. Pt was left seated in recliner chair in room with call mesa in reach and all needs met. Pt would benefit from continued PT Services to address remaining deficits and facilitate highest level of function and safe discharge planning. - EXIT DISPOSITION Exit Position: CHAIR Call light in reach: Yes Comments: and granddaughter present in room PT/OT ASSESSMENT - PT Problem List: Decreased Bed Mobility, Decreased Transfers, Decreased Gait, Decreased Balance, Decreased Safety, Decreased LE Strength - PT GOALS Short Term Goals Days: 10 Mobility: Pt will perform bed mobility tasks with mod assist Transfers: Pt will perform functional transfers with mod assist Gait: Pt will ambulate 10ft with FWW with mod assist Balance: Pt will increase static standing balance to fair ROM/Strength: Pt will increase R Ankle DF and R Knee Extension by 10 degrees Fpc Goals Days: 20 Mobility: Pt will perform bed mobility tasks with supervision Transfers: Pt will perform functional transfers with supervision Gait: Pt will ambulate 50ft wtih FWW with touch assist Balance: Pt will increase static standing balance to good ROM/Strength: Pt will increase BLE strength to 4 to 4+/5 Others: Pt will ascend/descend 1 step with touch assist - PATIENT GOALS Patient/Family Goals: "I want to get back to walking" Goals Discussed with Patient/Family: Yes (Family reports goal is to be an assist x 1 for mobility tasks) Rehabilitation Potential: Good to meet stated goals Justification for Potential: Facilitate highest level of function and safe discharge planning Weakness and Barriers: None - PLAN Suggested Treatment Plan: Bed Mobility Training, Therapeutic Activity, Gait Training, Neuro Re-education, Therapeutic Ex with HEP, Patient Education, Family Education - FREQUENCY AND DURATION PT: 5-6x per week x hospital stay Expected Continuation of Care at Discharge: Home Health
--- NOTE | 2023-06-18 12:34 | DR.UPDATE ---
H&P Update Prescription drug monitoring program results: PDMP reviewed and no concerns identified H&P Reviewed: Yes Any changes to H&P?: No Patient was examined?: Yes
[2023-06-18] MEDS ORDERED: BUTT CREAM (COMPOUND) TOP PRN (13:11)
--- NOTE | 2023-06-18 13:14 | PT/OTEVAL ---
PT/OT OBJECTIVES - HISTORY Prescription: OT Consult Diagnosis: CHF, Pneumonia Precautions: Fall risk, weakness PMH: Anxiety, Dyslipidemia, HTN, essential tremors, fibromyalgia, , hysterectomy. Prior Level of Function: Independent Other: Prior to this hospitalization, pt was living with her in a single story home with 1 step, however they are planning on getting a ramp in place to assist pt. Pt is (I) with ADLs and IADLs. Pt uses a rollator when out and about. She also has a cane. Pt has very supportive family (present during eval) who assist with pt needs upon d/c. Pt has a rollator, single point cane, shower chair, a bed side commode, and a w/c. History of Present Illness: Pt is a 77 year old female who was initially admitted to [facility] on 05/27/23 due to weakness, AMS, intractable diarrhea. Pt was treated; however. was still declining and found to be in CHF so the decision was made to transfer the pt to [facility] on 06/04/23. She was admitted with a dx of CHF. Pt was treated and stabilized medically. Pt was noted with weakness and inability to return home at this level and decision was made for pt to come back to [facility] for swing bed rehab. Pt was admitted to facility late afternoon/early evening 06/17/23. - COGNITION Mental Status: Alert, Oriented, Name, Date, Place, Purpose Communication Status: Verbal Ability to Follow Directions: 2 Step Affect: Appropriate - PAIN No signs of pain Pain Scale: No Pain Comments: Reports no pain at time of evaluation. - TRANSFERS Sit to Stand: Maximum, x2 Safety (requires cues for:): Hand Placement Precaution - ADL'S Upper Body ADL: Moderate Lower Body ADL: Maximum, X2 Toileting: Maximum Bathing: Maximum Hygeine: Maximum - BALANCE Static Sitting: Good Standing: Poor Balance Comment: Poor+ Dynamic Sitting: Good Standing: Poor Balance Comment: Poor- - NEUROMOTOR/SENSATION Demetri. Lower Ext Sensation: WFL Coordination: WFL Proprioception: WFL Demetri. Upper Ext Sensation: WFL Coordination: WFL Proprioception: WFL - HAND DOMINANCE Extremity Function: Hand Dominance: Right - ROM Bilateral UE ROM: WFL Muscle Tone: WFL - STRENGTH Left LE Strength Number: 3 Right LE Strength Number: 2 Other comment: 2+/5 Bilateral UE Strength Number: 3 - TREATMENT Date: 06/18/23 Time: 10:00 Treatment Type: Evaluation Treatment Provided: Therapeutic Excersises, Other - TOTAL TREATMENT TIME Total Time: 95 - POST ASSESSMENT Post Assessment Comment: Pt was seen for skilled OT to assess CLOF. Pt was agreeable to particiapte with family present. Pt completed ADL self care task of dressing. Pt completed UB dressing with mod A. LB dressing with max A x2. Pt STS from recliner with max A x2 and AE. Pt completed 3 STS with max A and max VC for hand placement. Pt given time due to weakness and fatigue. Pt noted to have stomach pain/discomfort. Several times throughout session pt was asked if she wanted to get on the BSC, pt declined. Pt completed BUE exe using a yellow resisitance band. 10 reps x2 of bicep/triceps ext/flexion with holding stretch for 5 seconds. Pt fatigued easily. Given extended RBs. - EXIT DISPOSITION Exit Position: CHAIR Call light in reach: Yes PT/OT ASSESSMENT - OT Problem List: Decreased Mobility ADL's, Decreased Safety Aware, Decreased Dr essing, Decreased Bathing, Decreased Grooming, Decreased UE Strength - PT GOALS Short Term Goals Days: 10 Mobility: Pt will perform bed mobility tasks with mod assist Transfers: Pt will perform functional transfers with mod assist Gait: Pt will ambulate 10ft with FWW with mod assist Balance: Pt will increase static standing balance to fair ROM/Strength: Pt will increase R Ankle DF and R Knee Extension by 10 degrees Alf Goals Days: 20 Mobility: Pt will perform bed mobility tasks with supervision Transfers: Pt will perform functional transfers with supervision Gait: Pt will ambulate 50ft wtih FWW with touch assist Balance: Pt will increase static standing balance to good ROM/Strength: Pt will increase BLE strength to 4 to 4+/5 Others: Pt will ascend/descend 1 step with touch assist - OT GOALS Alf Goals Days: 20 Mobility for ADL's: Pt to transfer to BSC with supv A and AE as needed Safety Awareness: Pt to improve safety awareness to G Dressing: Pt to dress LB with supv A and AE as needed Bathing: Pt to complete overall bathing with supv A Grooming: Pt to complete grooming (I) Upper Ext. Strength/Use: Pt to improve BUE MMT to 5/5 Short Term Goals Days: 10 Mobility for ADL's: Pt to transfer to BSC with mod A and AE as needed Safety Awareness: Pt to improve safety awareness to F+ Dressing: Pt to dress LB with min A and AE as needed Bathing: Pt to complete overall bathing with min A Grooming: Pt to complete grooming with set up A Upper Ext. Strength/Use: Pt to improve MMT to 5 - PATIENT GOALS Patient/Family Goals: "To walk out of here" Goals Discussed with Patient/Family: Yes (Family wants the pt to be able to transfer with 1 person to [facility]) Rehabilitation Potential: Good to meet stated goals. Justification for Potential: Facilitate highest level of function and safe d/c planning Weakness and Barriers: None - PLAN Suggested Treatment Plan: Therapeutic Activity, Self Care Training, Neuro Re- education, Therapeutic Ex with HEP, Patient Education, Family Education - FREQUENCY AND DURATION OT: 5x a week x hospital stay Expected Continuation of Care at Discharge: Home Health, Determined on Progress
[2023-06-18 17:37] LABS: BILIRUBIN,URINE NEGATIVE (NEGATIVE); BLOOD/HEMOGLOBIN,URINE 5+ (NEGATIVE); GLUCOSE, URINE NEGATIVE (NEGATIVE); KETONES,URINE NEGATIVE (NEGATIVE); LEUKOCYTE ESTERASE ,URINE NEGATIVE (NEGATIVE); NITRITES,URINE NEGATIVE (NEGATIVE); PROTEIN,URINE 3+ (NEGATIVE); UROBILINOGEN,URINE NORMAL (NORMAL)
[2023-06-18 17:49] LABS: APPEARANCE,URINE SLIGHTLY HAZY (CLEAR); COLOR,URINE YELLOW (YELLOW)
[2023-06-18 17:52] LABS: BACTERIA,URINE 1+ /HPF (NEGATIVE); SQUAMOUS EPITHELIAL CELL,UR MODERATE /HPF (NEGATIVE)
[2023-06-18 17:53] LABS: GRANULAR CASTS,URINE MODERATE /LPF (NEGATIVE); RENAL EPITHELIAL CELLS,URINE FEW /HPF (NEGATIVE)
[2023-06-18 17:55] LABS: YEAST,URINE MODERATE /HPF (NEGATIVE)
[2023-06-18] MEDS: RESTORIL CAP 15 MG PO PRN (20:20)
[2023-06-18] MEDS: CRESTOR TAB 10 MG PO SCH (20:20)
[2023-06-18] MEDS: MIRAPEX TAB 0.25 MG PO SCH (20:20)
[2023-06-19] MEDS: PERIACTIN TAB 4 MG PO SCH ×3 (05:30→15:30)
[2023-06-19 05:39] LABS: BASOPHILS # (AUTO) 0.1 X10^3/uL (0.0-0.1); BASOPHILS % (AUTO) 0.8 % (0.2-1.0); EOSINOPHILS # (AUTO) 0.3 x10^3/uL (0.0-0.2); EOSINOPHILS % (AUTO) 2.2 % (0.9-2.9); HEMATOCRIT 26.9 % (36.0-47.0); HEMOGLOBIN 8.7 g/dL (12.0-16.0); LYMPHOCYTES # (AUTO) 1.8 X10^3/uL (1.3-2.9); LYMPHOCYTES % (AUTO) 12.6 % (21.0-51.0); MEAN CORPUSCULAR HEMOGLOBIN 26.7 pg (27.0-34.0); MEAN CORPUSCULAR HGB CONC 32.3 g/dL (33.0-35.0); MEAN CORPUSCULAR VOLUME 82.7 fL (80.0-100.0); MEAN PLATELET VOLUME 11.1 fL (7.4-11.0); MONOCYTES # (AUTO) 0.9 x10^3/uL (0.3-0.8); NEUTROPHILS # (AUTO) 11.3 x10^3/uL (2.2-4.8); NEUTROPHILS % (AUTO) 78.4 % (42.0-75.0); PLATELET COUNT 126 X10^3/uL (150.0-450.0); RED BLOOD COUNT 3.25 X10^6/uL (3.5-5.4); RED CELL DISTRIBUTION WIDTH 15.1 % (11.6-16.5); WHITE BLOOD COUNT 14.4 X10^3/uL (3.6-10.0)
[2023-06-19 05:55] LABS: ALANINE AMINOTRANSFERASE 16 Units/L (12-78); ALBUMIN 2.4 g/dL (3.4-5.0); ALKALINE PHOSPHATASE 271 Units/L (46-116); ASPARTATE AMINO TRANSFERASE 55 Units/L (15-37); BLOOD UREA NITROGEN 38 mg/dL (7-18); CALCIUM 8.1 mg/dL (8.5-10.1); CARBON DIOXIDE 39.1 mmol/L (21-32); CHLORIDE 103 mmol/L (98-107); COR CA(FOR HYPOALB) 9.4 mg/dL (8.5-10.1); CREATININE 1.08 mg/dL (0.55-1.02); GLUCOSE 93 mg/dL (65-99); POTASSIUM 3.8 mmol/L (3.5-5.1); SODIUM 142 mmol/L (136-145); TOTAL PROTEIN 5.2 g/dL (6.4-8.2); eGFR NON BLACK RACES 53 (>60)
[2023-06-19] MEDS: DUONEB 0.5 MG/3 MG (3 mL) NEB SCH (06:28)
[2023-06-19 07:46] VITALS: BMI 19.9
[2023-06-19] MEDS ORDERED: NS 250 ML IV 250 ML IV ONE (08:56)
[2023-06-19] MEDS: VSL#3 PO SCH (08:59)
[2023-06-19] MEDS: SINEMET CR 50/200 MG PO SCH ×4 (08:59→20:17)
[2023-06-19] MEDS: OMNICEF CAP 300 MG PO SCH ×2 (08:59→20:16)
[2023-06-19] MEDS: VITAMIN D3 25 mcg (1,000 UNITS) PO SCH (08:59)
[2023-06-19] MEDS: MICRO K EXTEN CAP 10 MEQ PO SCH (08:59)
[2023-06-19] MEDS: MAG-OX TAB PO SCH ×2 (08:59→20:16)
[2023-06-19] MEDS: PROTONIX TAB 40 MG PO SCH (09:00)
[2023-06-19] MEDS: DIFLUCAN 200 MG IV PREMIX* 200 MG/100 ML BAG IV SCH (09:00)
[2023-06-19] MEDS: PLAQUENIL PO SCH ×2 (09:00→20:16)
[2023-06-19] MEDS: LASIX PO SCH (09:00)
[2023-06-19] MEDS: ASPIRIN EC 81 MG PO SCH (09:00)
[2023-06-19] MEDS: LOVENOX INJ 40 MG SYR SC SCH (09:01)
[2023-06-19] MEDS: PULMICORT NEB TX 0.5 MG NEB SCH ×2 (10:10→21:20)
[2023-06-19] MEDS: XOPENEX 1.25 MG/3 ML NEBULE NEB SCH ×4 (10:10→21:21)
[2023-06-19] MEDS: CRESTOR TAB 10 MG PO SCH (20:16)
[2023-06-19] MEDS: MIRAPEX TAB 0.25 MG PO SCH (20:16)
[2023-06-19] MEDS: RESTORIL CAP 15 MG PO PRN (20:21)
[2023-06-20] MEDS: PERIACTIN TAB 4 MG PO SCH ×2 (05:45→11:14)
[2023-06-20] MEDS: PULMICORT NEB TX 0.5 MG NEB SCH ×2 (08:04→21:35)
[2023-06-20] MEDS: XOPENEX 1.25 MG/3 ML NEBULE NEB SCH ×4 (08:05→21:35)
[2023-06-20] MEDS: LASIX PO SCH (08:53)
[2023-06-20] MEDS: SINEMET CR 50/200 MG PO SCH ×3 (08:53→20:28)
[2023-06-20] MEDS: VSL#3 PO SCH (08:54)
[2023-06-20] MEDS: OMNICEF CAP 300 MG PO SCH ×2 (08:54→20:20)
[2023-06-20] MEDS: VITAMIN D3 25 mcg (1,000 UNITS) PO SCH (08:54)
[2023-06-20] MEDS: MAG-OX TAB PO SCH ×2 (08:54→20:20)
[2023-06-20] MEDS: DIFLUCAN 200 MG IV PREMIX* 200 MG/100 ML BAG IV SCH (08:55)
[2023-06-20] MEDS: PROTONIX TAB 40 MG PO SCH (08:55)
[2023-06-20] MEDS: PLAQUENIL PO SCH ×2 (08:55→20:20)
[2023-06-20] MEDS: ASPIRIN EC 81 MG PO SCH (08:55)
[2023-06-20] MEDS: MICRO K EXTEN CAP 10 MEQ PO SCH (08:58)
[2023-06-20] MEDS: CRESTOR TAB 10 MG PO SCH (20:20)
[2023-06-20] MEDS: MIRAPEX TAB 0.25 MG PO SCH (20:21)
[2023-06-20] MEDS: RESTORIL CAP 15 MG PO PRN (20:22)
[2023-06-21] MEDS: PERIACTIN TAB 4 MG PO SCH ×3 (05:37→17:07)
[2023-06-21 06:01] LABS: BASOPHILS # (AUTO) 0.2 X10^3/uL (0.0-0.1); BASOPHILS % (AUTO) 1.4 % (0.2-1.0); EOSINOPHILS # (AUTO) 0.2 x10^3/uL (0.0-0.2); EOSINOPHILS % (AUTO) 1.3 % (0.9-2.9); HEMATOCRIT 23.2 % (36.0-47.0); HEMOGLOBIN 7.6 g/dL (12.0-16.0); LYMPHOCYTES # (AUTO) 2.1 X10^3/uL (1.3-2.9); LYMPHOCYTES % (AUTO) 14.7 % (21.0-51.0); MEAN CORPUSCULAR HEMOGLOBIN 27.1 pg (27.0-34.0); MEAN CORPUSCULAR HGB CONC 32.9 g/dL (33.0-35.0); MEAN CORPUSCULAR VOLUME 82.2 fL (80.0-100.0); MEAN PLATELET VOLUME 10.6 fL (7.4-11.0); MONOCYTES % (AUTO) 7.5 % (0.0-13.0); NEUTROPHILS # (AUTO) 10.5 x10^3/uL (2.2-4.8); NEUTROPHILS % (AUTO) 75.1 % (42.0-75.0); PLATELET COUNT 116 X10^3/uL (150.0-450.0); RED BLOOD COUNT 2.82 X10^6/uL (3.5-5.4); RED CELL DISTRIBUTION WIDTH 15.4 % (11.6-16.5)
[2023-06-21 06:16] LABS: ALANINE AMINOTRANSFERASE 17 Units/L (12-78); ALBUMIN 2.2 g/dL (3.4-5.0); ALKALINE PHOSPHATASE 347 Units/L (46-116); ASPARTATE AMINO TRANSFERASE 59 Units/L (15-37); BLOOD UREA NITROGEN 37 mg/dL (7-18); CALCIUM 7.7 mg/dL (8.5-10.1); CARBON DIOXIDE 36.2 mmol/L (21-32); CHLORIDE 104 mmol/L (98-107); COR CA(FOR HYPOALB) 9.1 mg/dL (8.5-10.1); CREATININE 1.14 mg/dL (0.55-1.02); GLUCOSE 83 mg/dL (65-99); MAGNESIUM 2.3 mg/dL (2.0-2.9); POTASSIUM 4.2 mmol/L (3.5-5.1); SODIUM 142 mmol/L (136-145); TOTAL PROTEIN 4.9 g/dL (6.4-8.2); eGFR NON BLACK RACES 49 (>60)
[2023-06-21] MEDS ORDERED: VITAMIN B-12 INJ IM ONE (08:22)
[2023-06-21] MEDS: XOPENEX 1.25 MG/3 ML NEBULE NEB SCH ×5 (08:51→20:05)
[2023-06-21] MEDS: PULMICORT NEB TX 0.5 MG NEB SCH ×2 (08:52→20:05)
[2023-06-21] MEDS ORDERED: INFeD or DEXFERRUM 25 MG in NS 100 ML IV 100 ML IV ONE (09:00)
[2023-06-21] MEDS: HEMOCYTE-PLUS PO SCH (09:12)
[2023-06-21] MEDS: VSL#3 PO SCH (09:12)
[2023-06-21] MEDS: OMNICEF CAP 300 MG PO SCH ×2 (09:12→22:11)
[2023-06-21] MEDS: ASPIRIN EC 81 MG PO SCH (09:13)
[2023-06-21] MEDS: VITAMIN D3 25 mcg (1,000 UNITS) PO SCH (09:13)
[2023-06-21] MEDS: MAG-OX TAB PO SCH ×2 (09:13→22:01)
[2023-06-21] MEDS: PLAQUENIL PO SCH ×2 (09:13→22:01)
[2023-06-21] MEDS: MICRO K EXTEN CAP 10 MEQ PO SCH (09:13)
[2023-06-21] MEDS: SINEMET CR 50/200 MG PO SCH ×4 (09:13→23:24)
[2023-06-21] MEDS: PROTONIX TAB 40 MG PO SCH (09:13)
[2023-06-21] MEDS: LASIX PO SCH (09:14)
[2023-06-21] MEDS: DIFLUCAN 100 MG IV (MIX by PHARMACY)* 100 MG/50 ML BAG IV SCH (09:37)
[2023-06-21] MEDS ORDERED: INFeD or DEXFERRUM 975 MG in NS 500 ML IV 500 ML IV ONE (10:30)
--- NOTE | 2023-06-21 11:52 | RAD ---
EXAM:CHEST x-ray, 1 VIEWHISTORY:CHF -COMPARISON:X-ray 06/18/2023FINDINGS:Probable mild CHF and pulmonary edema, improved from prior study. Decrease in size or resolution of pleural effusions is suspected. No pneumothorax is seen.IMPRESSION:Probable mild CHF and pulmonary edema, improved from prior study.THIS IS AN ELECTRONICALLY VERIFIED FINAL REPORT06/21/2023 11:49 AM - Electronically signed by Kelvin Bello MD
[2023-06-21] MEDS: CRESTOR TAB 10 MG PO SCH (22:00)
[2023-06-21] MEDS: RESTORIL CAP 15 MG PO PRN (22:00)
[2023-06-21] MEDS: MIRAPEX TAB 0.25 MG PO SCH (22:01)
[2023-06-22] MEDS: PERIACTIN TAB 4 MG PO SCH ×3 (06:02→16:35)
[2023-06-22 06:40] LABS: BASOPHILS # (AUTO) 0.1 X10^3/uL (0.0-0.1); BASOPHILS % (AUTO) 1.2 % (0.2-1.0); EOSINOPHILS # (AUTO) 0.2 x10^3/uL (0.0-0.2); EOSINOPHILS % (AUTO) 1.8 % (0.9-2.9); HEMATOCRIT 24.2 % (36.0-47.0); HEMOGLOBIN 7.9 g/dL (12.0-16.0); LYMPHOCYTES # (AUTO) 2.9 X10^3/uL (1.3-2.9); LYMPHOCYTES % (AUTO) 23.3 % (21.0-51.0); MEAN CORPUSCULAR HEMOGLOBIN 27.3 pg (27.0-34.0); MEAN CORPUSCULAR HGB CONC 32.7 g/dL (33.0-35.0); MEAN CORPUSCULAR VOLUME 83.4 fL (80.0-100.0); MEAN PLATELET VOLUME 11.2 fL (7.4-11.0); MONOCYTES % (AUTO) 7.7 % (0.0-13.0); NEUTROPHILS # (AUTO) 8.2 x10^3/uL (2.2-4.8); PLATELET COUNT 118 X10^3/uL (150.0-450.0); RED BLOOD COUNT 2.91 X10^6/uL (3.5-5.4); RED CELL DISTRIBUTION WIDTH 15.8 % (11.6-16.5); WHITE BLOOD COUNT 12.4 X10^3/uL (3.6-10.0)
[2023-06-22 07:06] LABS: ALBUMIN 2.2 g/dL (3.4-5.0); ALKALINE PHOSPHATASE 326 Units/L (46-116); BLOOD UREA NITROGEN 32 mg/dL (7-18); CALCIUM 7.8 mg/dL (8.5-10.1); CARBON DIOXIDE 34.2 mmol/L (21-32); CHLORIDE 105 mmol/L (98-107); COR CA(FOR HYPOALB) 9.2 mg/dL (8.5-10.1); CREATININE 1.15 mg/dL (0.55-1.02); GLUCOSE 94 mg/dL (65-99); POTASSIUM 4.1 mmol/L (3.5-5.1); SODIUM 143 mmol/L (136-145); TOTAL PROTEIN 4.8 g/dL (6.4-8.2); eGFR NON BLACK RACES 49 (>60)
[2023-06-22 07:19] LABS: ALANINE AMINOTRANSFERASE 15 Units/L (12-78); ASPARTATE AMINO TRANSFERASE 53 Units/L (15-37)
[2023-06-22] MEDS: SINEMET CR 50/200 MG PO SCH ×4 (08:14→20:01)
[2023-06-22] MEDS: DIFLUCAN 100 MG IV (MIX by PHARMACY)* 100 MG/50 ML BAG IV SCH (08:14)
[2023-06-22] MEDS: ASPIRIN EC 81 MG PO SCH (08:15)
[2023-06-22] MEDS: LASIX PO SCH (08:15)
[2023-06-22] MEDS: OMNICEF CAP 300 MG PO SCH (08:15)
[2023-06-22] MEDS: PROTONIX TAB 40 MG PO SCH (08:15)
[2023-06-22] MEDS: MAG-OX TAB PO SCH ×2 (08:15→20:04)
[2023-06-22] MEDS: VSL#3 PO SCH (08:15)
[2023-06-22] MEDS: HEMOCYTE-PLUS PO SCH (08:15)
[2023-06-22] MEDS: VITAMIN D3 25 mcg (1,000 UNITS) PO SCH (08:16)
[2023-06-22] MEDS: PLAQUENIL PO SCH ×2 (08:16→20:01)
[2023-06-22] MEDS: MICRO K EXTEN CAP 10 MEQ PO SCH (08:16)
[2023-06-22] MEDS: XOPENEX 1.25 MG/3 ML NEBULE NEB SCH ×4 (08:47→21:19)
[2023-06-22] MEDS: PULMICORT NEB TX 0.5 MG NEB SCH ×2 (08:47→21:19)
[2023-06-22] MEDS: MIRAPEX TAB 0.25 MG PO SCH ×2 (17:54→20:01)
[2023-06-22] MEDS: CRESTOR TAB 10 MG PO SCH (20:00)
[2023-06-22] MEDS: RESTORIL CAP 15 MG PO PRN (21:37)
[2023-06-23] MEDS: PERIACTIN TAB 4 MG PO SCH ×3 (05:35→17:03)
[2023-06-23 06:13] LABS: BASOPHILS # (AUTO) 0.3 X10^3/uL (0.0-0.1); BASOPHILS % (AUTO) 2.6 % (0.2-1.0); EOSINOPHILS # (AUTO) 0.1 x10^3/uL (0.0-0.2); HEMATOCRIT 23.4 % (36.0-47.0); HEMOGLOBIN 7.6 g/dL (12.0-16.0); LYMPHOCYTES # (AUTO) 3.3 X10^3/uL (1.3-2.9); LYMPHOCYTES % (AUTO) 27.3 % (21.0-51.0); MEAN CORPUSCULAR HEMOGLOBIN 27.1 pg (27.0-34.0); MEAN CORPUSCULAR HGB CONC 32.6 g/dL (33.0-35.0); MEAN CORPUSCULAR VOLUME 83.1 fL (80.0-100.0); MONOCYTES % (AUTO) 8.2 % (0.0-13.0); NEUTROPHILS # (AUTO) 7.4 x10^3/uL (2.2-4.8); NEUTROPHILS % (AUTO) 60.9 % (42.0-75.0); PLATELET COUNT 129 X10^3/uL (150.0-450.0); RED BLOOD COUNT 2.81 X10^6/uL (3.5-5.4); RED CELL DISTRIBUTION WIDTH 15.5 % (11.6-16.5); WHITE BLOOD COUNT 12.1 X10^3/uL (3.6-10.0)
[2023-06-23 06:25] LABS: ALANINE AMINOTRANSFERASE 13 Units/L (12-78); ALBUMIN 2.3 g/dL (3.4-5.0); ALKALINE PHOSPHATASE 316 Units/L (46-116); BLOOD UREA NITROGEN 29 mg/dL (7-18); CALCIUM 7.8 mg/dL (8.5-10.1); CARBON DIOXIDE 33.6 mmol/L (21-32); CHLORIDE 105 mmol/L (98-107); COR CA(FOR HYPOALB) 9.2 mg/dL (8.5-10.1); CREATININE 1.12 mg/dL (0.55-1.02); GLUCOSE 90 mg/dL (65-99); SODIUM 141 mmol/L (136-145); TOTAL PROTEIN 4.9 g/dL (6.4-8.2); eGFR NON BLACK RACES 50 (>60)
[2023-06-23 06:35] LABS: ASPARTATE AMINO TRANSFERASE 50 Units/L (15-37)
[2023-06-23] MEDS ORDERED: NS 500 ML IV 500 ML IV ONE (08:27)
--- NOTE | 2023-06-23 08:28 | RAD ---
EXAM:CHEST, 1 VIEWHISTORY:CHF, PNEUMONIACOMPARISON:06/21/2023.TECHNIQUE: .br.br.br.br contours are normal in size. Similar appearance of mild bilateral scattered airspace opacities. No definite pleural effusion pneumothorax.IMPRESSION:No significant change compared to prior radiograph.THIS IS AN ELECTRONICALLY VERIFIED FINAL REPORT06/23/2023 8:25 AM - Electronically signed by Enmanuel Lim MD
[2023-06-23] MEDS: XOPENEX 1.25 MG/3 ML NEBULE NEB PRN (08:43)
[2023-06-23] MEDS: PULMICORT NEB TX 0.5 MG NEB SCH ×2 (08:43→21:00)
[2023-06-23] MEDS: DIFLUCAN 100 MG IV (MIX by PHARMACY)* 100 MG/50 ML BAG IV SCH (08:48)
[2023-06-23] MEDS: SINEMET CR 50/200 MG PO SCH ×4 (08:52→20:31)
[2023-06-23] MEDS: VSL#3 PO SCH (08:52)
[2023-06-23] MEDS: MICRO K EXTEN CAP 10 MEQ PO SCH (08:52)
[2023-06-23] MEDS: HEMOCYTE-PLUS PO SCH (08:52)
[2023-06-23] MEDS: PROTONIX TAB 40 MG PO SCH (08:52)
[2023-06-23] MEDS: VITAMIN D3 25 mcg (1,000 UNITS) PO SCH (08:53)
[2023-06-23] MEDS: LASIX PO SCH (08:53)
[2023-06-23] MEDS: PLAQUENIL PO SCH ×2 (08:53→20:30)
[2023-06-23] MEDS: MAG-OX TAB PO SCH ×2 (08:53→22:33)
[2023-06-23] MEDS: ASPIRIN EC 81 MG PO SCH (08:53)
[2023-06-23] MEDS: MIRAPEX TAB 0.25 MG PO SCH (08:53)
[2023-06-23] MEDS ORDERED: MIRAPEX TAB 0.25 MG PO PRN (09:08)
[2023-06-23] MEDS ORDERED: INFeD or DEXFERRUM 25 MG in NS 100 ML IV 100 ML IV ONE (11:00)
[2023-06-23] MEDS ORDERED: INFeD or DEXFERRUM 975 MG in NS 500 ML IV 500 ML IV ONE (12:30)
--- NOTE | 2023-06-23 18:18 | PCM.PROG ---
Progress Note - Progress Note for Day of Date of Exam: 06/23/23 - Subjective Subjective: PT IS 77 WF, CURRENTLY UNDER SWING BED STATUS FOR PHYSICAL THERAPY FOLLOWING PNEUMONIA AND CHF. PT IS ON PO ANTIBIOTICS WITH SUPPLEMENTAL O2 AND RESP THERAPY. PT HAS BEEN ANEMIC WITH IRON DEFICIENCY. IRON REPLACEMENT ADDED TO MEDICATION REGIMEN. SHE RECIEVED IV IRON SINCE ADMISSION WITH HGB 7.6 THIS AM. TYPE AND CROSS ORDERED. PLAN TO REPEAT IV IRON INFUSION. OCCULT STOOL IS UNCOLLECTED AT THIS TIME. PT HAS BEEN WORKING WITH PT BETTER. PERIACTIN WAS ADDED FOR APPETITE STIMULATION AND SPOUSE REPORTS IMPROVING PO INTAKE - Past Medical Family Social History Past Med/Fam/Surg Hx: No changes since H&P Allergies: Allergies No Known Allergies Allergy (Verified 06/17/23 19:26) - Review of Systems ROS: No change since H&P - Vital Signs and I&O's Intake and Output: Intake & Output 06/21/23 06/22/23 06/23/23 06/24/23 11:59 11:59 11:59 11:59 Intake Total 824 / 824 1380 / 1380 1273 / 1273 889 / 889 Balance 824 / 824 1380 / 1380 1273 / 1273 889 / 889 - Physical Exam Oriented: Normal Eyes: Normal Ear: Normal Nose: Normal Throat: Normal Respiratory: Diminished Cardiovascular: Normal : Normal Auscultation: Bowel Sounds: Normal Tenderness: Normal Skin: Decreased Turgur, Bruising Musculoskeletal: Motor Deficit Psychiatric: Anxiety Affect: Anxious Speech Pattern: Clear, Appropriate - Laboratory and Diagnostics Result Diagrams: 06/23/23 05:59 06/23/23 05:59 Labs: Laboratory WBC 12.1 X10^3/uL (3.6-10.0) H 06/23/23 05:59 RBC 2.81 X10^6/uL (3.5-5.4) L 06/23/23 05:59 Hgb 7.6 g/dL (12.0-16.0) L 06/23/23 05:59 Hct 23.4 % (36.0-47.0) L 06/23/23 05:59 MCV 83.1 fL (80.0-100.0) 06/23/23 05:59 MCH 27.1 pg (27.0-34.0) 06/23/23 05:59 MCHC 32.6 g/dL (33.0-35.0) L 06/23/23 05:59 RDW 15.5 % (11.6-16.5) 06/23/23 05:59 Plt Count 129 X10^3/uL (150.0-450.0) L 06/23/23 05:59 MPV 10.0 fL (7.4-11.0) 06/23/23 05:59 Neut % (Auto) 60.9 % (42.0-75.0) 06/23/23 05:59 Lymph % (Auto) 27.3 % (21.0-51.0) 06/23/23 05:59 [place] % (Auto) 8.2 % (0.0-13.0) 06/23/23 05:59 Eos % (Auto) 1.0 % (0.9-2.9) 06/23/23 05:59 Baso % (Auto) 2.6 % (0.2-1.0) H 06/23/23 05:59 Neut # (Auto) 7.4 x10^3/uL (2.2-4.8) H 06/23/23 05:59 Lymph # (Auto) 3.3 X10^3/uL (1.3-2.9) H 06/23/23 05:59 [place] # (Auto) 1.0 x10^3/uL (0.3-0.8) H 06/23/23 05:59 Eos # (Auto) 0.1 x10^3/uL (0.0-0.2) 06/23/23 05:59 Baso # (Auto) 0.3 X10^3/uL (0.0-0.1) H 06/23/23 05:59 Absolute Nucleated RBC 0.1 /100WBC 06/23/23 05:59 Sodium 141 mmol/L (136-145) 06/23/23 05:59 Corrected Sodium TNP 06/23/23 05:59 Potassium 4.0 mmol/L (3.5-5.1) 06/23/23 05:59 Chloride 105 mmol/L (98-107) 06/23/23 05:59 Carbon Dioxide 33.6 mmol/L (21-32) H 06/23/23 05:59 BUN 29 mg/dL (7-18) H 06/23/23 05:59 Creatinine 1.12 mg/dL (0.55-1.02) H 06/23/23 05:59 Est GFR (MDRD) Af Amer > 60 (>60) 06/23/23 05:59 Est GFR (MDRD) Non-Af 50 (>60) L 06/23/23 05:59 Glucose 90 mg/dL (65-99) 06/23/23 05:59 Calcium 7.8 mg/dL (8.5-10.1) L 06/23/23 05:59 Corrected Calcium 9.2 mg/dL (8.5-10.1) 06/23/23 05:59 Magnesium 2.3 mg/dL (2.0-2.9) 06/21/23 05:28 Iron 25 ug/dL (50-175) L 06/18/23 04:55 Transferrin 147 mg/dL (202-364) L 06/18/23 04:55 Ferritin 335 ng/mL (8-252) H 06/18/23 04:55 Total Bilirubin 0.70 mg/dL (0.2-1.0) 06/23/23 05:59 AST 50 Units/L (15-37) H 06/23/23 05:59 ALT 13 Units/L (12-78) 06/23/23 05:59 Alkaline Phosphatase 316 Units/L (46-116) H 06/23/23 05:59 B-Natriuretic Peptide 855 pg/mL (0-79) H* 06/21/23 05:28 Total Protein 4.9 g/dL (6.4-8.2) L 06/23/23 05:59 Albumin 2.3 g/dL (3.4-5.0) L 06/23/23 05:59 Globulin 2.6 g/dL (2.5-4.5) 06/23/23 05:59 Albumin/Globulin Ratio 0.9 Ratio (1.1-2.1) L 06/23/23 05:59 Vitamin D 25-Hydroxy 24 ng/mL (30-80) L 06/18/23 04:55 Specimen Type Catherized urine 06/18/23 17:26 Urine Color Yellow (YELLOW) 06/18/23 17:26 Urine Appearance Slightly hazy (CLEAR) 06/18/23 17:26 Urine pH 6.0 (5.0 - 8.0) 06/18/23 17:26 Ur Specific [place] 1.015 (1.000-1.030) 06/18/23 17:26 Urine Protein 3+ (NEGATIVE) 06/18/23 17:26 Urine Glucose (UA) Negative (NEGATIVE) 06/18/23 17:26 Urine Ketones Negative (NEGATIVE) 06/18/23 17:26 Urine Blood 5+ (NEGATIVE) 06/18/23 17:26 Urine Nitrite Negative (NEGATIVE) 06/18/23 17:26 Urine Bilirubin Negative (NEGATIVE) 06/18/23 17:26 Urine Urobilinogen Normal (NORMAL) 06/18/23 17:26 Ur Leukocyte Esterase Negative (NEGATIVE) 06/18/23 17:26 Urine RBC 3-5 /HPF (0-3) A 06/18/23 17:26 Urine WBC 5-10 /HPF (0-5) A 06/18/23 17:26 Ur Squamous Epith Cells Moderate /HPF (NEGATIVE) 06/18/23 17:26 Ur Renal Epithelial Cell Few /HPF (NEGATIVE) 06/18/23 17:26 Amorphous Sediment 1+ /HPF (NEGATIVE) 06/18/23 17:26 Urine Bacteria 1+ /HPF (NEGATIVE) 06/18/23 17:26 Granular Casts Moderate /LPF (NEGATIVE) 06/18/23 17:26 Urine Yeast Moderate /HPF (NEGATIVE) 06/18/23 17:26 Ur Culture Indicated? No/not indicated 06/18/23 17:26 Blood Type A NEGATIVE 06/23/23 08:50 Antibody Screen Negative 06/23/23 08:50 - Plan (1) Generalized weakness Status: Acute Plan: SWING BED THERAPY. RESP THERAPY, SUPPLEMENTAL O2. ROUTINE LABS. BP CONTROL, FALL RISK (2) CHF (congestive heart failure) Status: Acute (3) Pneumonia Status: Acute Qualifiers: (4) Anemia Status: Acute Qualifiers:
[2023-06-23] MEDS: CRESTOR TAB 10 MG PO SCH (20:30)
[2023-06-23] MEDS: RESTORIL CAP 15 MG PO PRN (20:30)
[2023-06-24] MEDS: PERIACTIN TAB 4 MG PO SCH ×3 (05:45→16:28)
[2023-06-24 06:39] LABS: BASOPHILS # (AUTO) 0.1 X10^3/uL (0.0-0.1); EOSINOPHILS # (AUTO) 0.2 x10^3/uL (0.0-0.2); EOSINOPHILS % (AUTO) 1.7 % (0.9-2.9); HEMATOCRIT 23.4 % (36.0-47.0); HEMOGLOBIN 7.8 g/dL (12.0-16.0); LYMPHOCYTES # (AUTO) 4.3 X10^3/uL (1.3-2.9); LYMPHOCYTES % (AUTO) 30.2 % (21.0-51.0); MEAN CORPUSCULAR HEMOGLOBIN 27.7 pg (27.0-34.0); MEAN CORPUSCULAR HGB CONC 33.3 g/dL (33.0-35.0); MEAN CORPUSCULAR VOLUME 83.2 fL (80.0-100.0); MEAN PLATELET VOLUME 10.1 fL (7.4-11.0); MONOCYTES # (AUTO) 1.3 x10^3/uL (0.3-0.8); NEUTROPHILS # (AUTO) 8.2 x10^3/uL (2.2-4.8); NEUTROPHILS % (AUTO) 58.1 % (42.0-75.0); PLATELET COUNT 133 X10^3/uL (150.0-450.0); RED BLOOD COUNT 2.81 X10^6/uL (3.5-5.4); RED CELL DISTRIBUTION WIDTH 16.4 % (11.6-16.5); WHITE BLOOD COUNT 14.1 X10^3/uL (3.6-10.0)
[2023-06-24] MEDS: ASPIRIN EC 81 MG PO SCH (08:21)
[2023-06-24] MEDS: SINEMET CR 50/200 MG PO SCH ×4 (08:21→20:35)
[2023-06-24] MEDS: VITAMIN D3 25 mcg (1,000 UNITS) PO SCH (08:22)
[2023-06-24] MEDS: LASIX PO SCH (08:22)
[2023-06-24] MEDS: PROTONIX TAB 40 MG PO SCH (08:23)
[2023-06-24] MEDS: MAG-OX TAB PO SCH ×2 (08:24→20:34)
[2023-06-24] MEDS: HEMOCYTE-PLUS PO SCH (08:24)
[2023-06-24] MEDS: PLAQUENIL PO SCH ×2 (08:24→20:35)
[2023-06-24] MEDS: MICRO K EXTEN CAP 10 MEQ PO SCH (08:24)
[2023-06-24] MEDS: DIFLUCAN 100 MG IV (MIX by PHARMACY)* 100 MG/50 ML BAG IV SCH (08:27)
[2023-06-24] MEDS: VSL#3 PO SCH (08:27)
[2023-06-24] MEDS: PULMICORT NEB TX 0.5 MG NEB SCH ×2 (08:34→20:43)
[2023-06-24] MEDS: XOPENEX 1.25 MG/3 ML NEBULE NEB PRN ×3 (11:59→20:43)
[2023-06-24] MEDS: CRESTOR TAB 10 MG PO SCH (20:34)
[2023-06-25] MEDS: PERIACTIN TAB 4 MG PO SCH ×3 (05:39→15:53)
[2023-06-25 06:17] LABS: BASOPHILS # (AUTO) 0.1 X10^3/uL (0.0-0.1); BASOPHILS % (AUTO) 0.9 % (0.2-1.0); EOSINOPHILS # (AUTO) 0.1 x10^3/uL (0.0-0.2); EOSINOPHILS % (AUTO) 0.8 % (0.9-2.9); HEMATOCRIT 22.7 % (36.0-47.0); HEMOGLOBIN 7.4 g/dL (12.0-16.0); LYMPHOCYTES # (AUTO) 4.6 X10^3/uL (1.3-2.9); LYMPHOCYTES % (AUTO) 35.2 % (21.0-51.0); MEAN CORPUSCULAR HEMOGLOBIN 27.4 pg (27.0-34.0); MEAN CORPUSCULAR HGB CONC 32.7 g/dL (33.0-35.0); MEAN CORPUSCULAR VOLUME 83.9 fL (80.0-100.0); MONOCYTES # (AUTO) 1.3 x10^3/uL (0.3-0.8); MONOCYTES % (AUTO) 9.8 % (0.0-13.0); NEUTROPHILS % (AUTO) 53.3 % (42.0-75.0); PLATELET COUNT 159 X10^3/uL (150.0-450.0); RED CELL DISTRIBUTION WIDTH 16.3 % (11.6-16.5); WHITE BLOOD COUNT 13.2 X10^3/uL (3.6-10.0)
--- NOTE | 2023-06-25 06:35 | RAD ---
HISTORYCongestive heart failure, pneumoniaSTUDYChest AP [id number]/2023FINDINGSPati ent is rotated to the right. Heart size is normal. No definite congestive heart failure is identified. Bibasilar lung infiltrates are present and unchanged. Small left pleural effusion is present. Upper lung mccoy are clear. Bony thorax is unremarkable.IMPRESSIONNo change bibasilar infiltrates suggestive of pneumoniaNo definite congestive heart failure identifiedSmall left pleural effusionElectronically signed by: LUKASZ HAHN (Jun 25, 2023 06:35:20)
[2023-06-25 06:39] LABS: ALBUMIN 2.3 g/dL (3.4-5.0); ALKALINE PHOSPHATASE 282 Units/L (46-116); BLOOD UREA NITROGEN 26 mg/dL (7-18); CALCIUM 7.9 mg/dL (8.5-10.1); CARBON DIOXIDE 30.7 mmol/L (21-32); CHLORIDE 106 mmol/L (98-107); COR CA(FOR HYPOALB) 9.3 mg/dL (8.5-10.1); CREATININE 1.13 mg/dL (0.55-1.02); GLUCOSE 82 mg/dL (65-99); MAGNESIUM 2.4 mg/dL (2.0-2.9); POTASSIUM 3.6 mmol/L (3.5-5.1); SODIUM 141 mmol/L (136-145); TOTAL PROTEIN 4.8 g/dL (6.4-8.2); eGFR NON BLACK RACES 50 (>60)
[2023-06-25 07:43] LABS: ASPARTATE AMINO TRANSFERASE 55 Units/L (15-37)
[2023-06-25] MEDS ORDERED: NS 500 ML IV 500 ML IV ONE (08:28)
[2023-06-25] MEDS ORDERED: LASIX IVP ONE ×2 (08:29→15:40)
[2023-06-25] MEDS: PLAQUENIL PO SCH ×2 (08:42→21:10)
[2023-06-25] MEDS: DIFLUCAN 100 MG IV (MIX by PHARMACY)* 100 MG/50 ML BAG IV SCH (08:42)
[2023-06-25] MEDS: PROTONIX TAB 40 MG PO SCH (08:43)
[2023-06-25] MEDS: ASPIRIN EC 81 MG PO SCH (08:43)
[2023-06-25] MEDS: VSL#3 PO SCH (08:47)
[2023-06-25] MEDS: MAG-OX TAB PO SCH ×2 (08:47→21:10)
[2023-06-25] MEDS: VITAMIN D3 25 mcg (1,000 UNITS) PO SCH (08:48)
[2023-06-25] MEDS: SINEMET CR 50/200 MG PO SCH ×4 (08:48→21:10)
[2023-06-25] MEDS: HEMOCYTE-PLUS PO SCH (08:49)
[2023-06-25] MEDS ORDERED: K-DUR TAB 20 MEQ PO SCH (09:00)
[2023-06-25 09:20] LABS: ABG BASE EXCESS 7.6 mmol/L (-2.0-2.0)
[2023-06-25] MEDS: PULMICORT NEB TX 0.5 MG NEB SCH ×2 (09:29→20:03)
[2023-06-25] MEDS: XOPENEX 1.25 MG/3 ML NEBULE NEB PRN ×3 (11:56→20:03)
[2023-06-25] MEDS ORDERED: KLOR-CON PO ONE (15:30)
[2023-06-25] MEDS ORDERED: KLOR-CON ONE (15:31)
[2023-06-25] MEDS: CRESTOR TAB 10 MG PO SCH (21:10)
[2023-06-25] MEDS: RESTORIL CAP 15 MG PO PRN (21:13)
[2023-06-26 05:37] LABS: BASOPHILS # (AUTO) 0.1 X10^3/uL (0.0-0.1); BASOPHILS % (AUTO) 0.7 % (0.2-1.0); EOSINOPHILS # (AUTO) 0.1 x10^3/uL (0.0-0.2); EOSINOPHILS % (AUTO) 0.6 % (0.9-2.9); HEMATOCRIT 27.1 % (36.0-47.0); LYMPHOCYTES % (AUTO) 34.4 % (21.0-51.0); MEAN CORPUSCULAR HEMOGLOBIN 27.6 pg (27.0-34.0); MEAN CORPUSCULAR HGB CONC 33.2 g/dL (33.0-35.0); MEAN CORPUSCULAR VOLUME 83.2 fL (80.0-100.0); MEAN PLATELET VOLUME 9.8 fL (7.4-11.0); MONOCYTES # (AUTO) 1.7 x10^3/uL (0.3-0.8); MONOCYTES % (AUTO) 11.5 % (0.0-13.0); NEUTROPHILS # (AUTO) 7.7 x10^3/uL (2.2-4.8); NEUTROPHILS % (AUTO) 52.8 % (42.0-75.0); PLATELET COUNT 194 X10^3/uL (150.0-450.0); RED BLOOD COUNT 3.26 X10^6/uL (3.5-5.4); WHITE BLOOD COUNT 14.6 X10^3/uL (3.6-10.0)
[2023-06-26] MEDS: PERIACTIN TAB 4 MG PO SCH ×3 (05:47→16:56)
[2023-06-26 05:52] LABS: ALANINE AMINOTRANSFERASE 11 Units/L (12-78); ALBUMIN 2.4 g/dL (3.4-5.0); ALKALINE PHOSPHATASE 280 Units/L (46-116); BLOOD UREA NITROGEN 25 mg/dL (7-18); CALCIUM 7.9 mg/dL (8.5-10.1); CARBON DIOXIDE 33.7 mmol/L (21-32); CHLORIDE 107 mmol/L (98-107); COR CA(FOR HYPOALB) 9.2 mg/dL (8.5-10.1); CREATININE 1.17 mg/dL (0.55-1.02); GLUCOSE 92 mg/dL (65-99); POTASSIUM 3.3 mmol/L (3.5-5.1); SODIUM 144 mmol/L (136-145); eGFR NON BLACK RACES 48 (>60)
[2023-06-26 06:16] LABS: ASPARTATE AMINO TRANSFERASE 24 Units/L (15-37)
[2023-06-26] MEDS ORDERED: CONSULT PHARMACY - POTASSIUM & MAGNESIUM XX SCH (07:00)
[2023-06-26] MEDS: PULMICORT NEB TX 0.5 MG NEB SCH ×2 (08:53→20:24)
[2023-06-26] MEDS: XOPENEX 1.25 MG/3 ML NEBULE NEB PRN ×2 (08:53→20:24)
[2023-06-26 09:25] LABS: ALANINE AMINOTRANSFERASE 14 Units/L (12-78)
[2023-06-26] MEDS: SINEMET CR 50/200 MG PO SCH ×4 (09:49→20:03)
[2023-06-26] MEDS: MAG-OX TAB PO SCH ×2 (09:49→20:03)
[2023-06-26] MEDS: PLAQUENIL PO SCH ×2 (09:49→20:03)
[2023-06-26] MEDS: HEMOCYTE-PLUS PO SCH (09:49)
[2023-06-26] MEDS: DIFLUCAN PO SCH (09:49)
[2023-06-26] MEDS: VITAMIN D3 25 mcg (1,000 UNITS) PO SCH (09:49)
[2023-06-26] MEDS: VSL#3 PO SCH (09:50)
[2023-06-26] MEDS: PROTONIX TAB 40 MG PO SCH (09:50)
[2023-06-26] MEDS: ASPIRIN EC 81 MG PO SCH (09:50)
[2023-06-26] MEDS: LASIX PO SCH (09:50)
[2023-06-26] MEDS: MICRO K EXTEN CAP 10 MEQ PO SCH (09:51)
[2023-06-26] MEDS: K-DUR TAB 20 MEQ PO SCH (12:16)
[2023-06-26] MEDS: VISTARIL PO PRN ×2 (12:22→20:03)
--- NOTE | 2023-06-26 13:04 | RAD ---
HISTORYPneumoniaSTUDYPortable AP chestCOMPARISONSeptember 2022FINDINGSHeart size is unchanged. There is interval increase in bilateral diffuse infiltrates/edema without evidence for pneumothorax or significant pleural effusion. Inspiration is incomplete with reduced lung volumes.IMPRESSIONInterval appearance of bilateral pulmonary infiltrates and/or pulmonary edema, accentuated by partial expiratory phase.Electronically signed by: ZANE HEALY (Jun 26, 2023 13:03:13)
[2023-06-26] MEDS ORDERED: COLACE CAP 100 MG PO PRN (19:34)
[2023-06-26] MEDS ORDERED: MILK OF MAGNESIA PO PRN (19:34)
[2023-06-26] MEDS: COLACE CAP 100 MG PO SCH (20:03)
[2023-06-26] MEDS: RESTORIL CAP 15 MG PO PRN (20:03)
[2023-06-26] MEDS: CRESTOR TAB 10 MG PO SCH (20:03)
[2023-06-27] MEDS: PERIACTIN TAB 4 MG PO SCH ×3 (05:34→16:37)
[2023-06-27 05:44] LABS: BASOPHILS # (AUTO) 0.1 X10^3/uL (0.0-0.1); BASOPHILS % (AUTO) 0.7 % (0.2-1.0); EOSINOPHILS # (AUTO) 0.2 x10^3/uL (0.0-0.2); EOSINOPHILS % (AUTO) 1.4 % (0.9-2.9); HEMATOCRIT 28.5 % (36.0-47.0); HEMOGLOBIN 9.5 g/dL (12.0-16.0); LYMPHOCYTES # (AUTO) 5.6 X10^3/uL (1.3-2.9); LYMPHOCYTES % (AUTO) 36.5 % (21.0-51.0); MEAN CORPUSCULAR HEMOGLOBIN 27.8 pg (27.0-34.0); MEAN CORPUSCULAR HGB CONC 33.2 g/dL (33.0-35.0); MEAN CORPUSCULAR VOLUME 83.7 fL (80.0-100.0); MEAN PLATELET VOLUME 9.7 fL (7.4-11.0); MONOCYTES # (AUTO) 1.8 x10^3/uL (0.3-0.8); NEUTROPHILS # (AUTO) 7.6 x10^3/uL (2.2-4.8); NEUTROPHILS % (AUTO) 49.4 % (42.0-75.0); PLATELET COUNT 278 X10^3/uL (150.0-450.0); RED BLOOD COUNT 3.41 X10^6/uL (3.5-5.4); RED CELL DISTRIBUTION WIDTH 17.2 % (11.6-16.5); WHITE BLOOD COUNT 15.3 X10^3/uL (3.6-10.0)
[2023-06-27 05:53] LABS: ALANINE AMINOTRANSFERASE 11 Units/L (12-78); ALBUMIN 2.5 g/dL (3.4-5.0); ALKALINE PHOSPHATASE 273 Units/L (46-116); ASPARTATE AMINO TRANSFERASE 46 Units/L (15-37); BLOOD UREA NITROGEN 24 mg/dL (7-18); CALCIUM 8.1 mg/dL (8.5-10.1); CARBON DIOXIDE 32.9 mmol/L (21-32); CHLORIDE 108 mmol/L (98-107); COR CA(FOR HYPOALB) 9.3 mg/dL (8.5-10.1); CREATININE 1.24 mg/dL (0.55-1.02); GLUCOSE 75 mg/dL (65-99); MAGNESIUM 2.4 mg/dL (2.0-2.9); SODIUM 144 mmol/L (136-145); TOTAL PROTEIN 5.1 g/dL (6.4-8.2); eGFR NON BLACK RACES 45 (>60)
[2023-06-27] MEDS: PULMICORT NEB TX 0.5 MG NEB SCH ×2 (08:00→21:00)
[2023-06-27] MEDS: VITAMIN D3 25 mcg (1,000 UNITS) PO SCH (09:14)
[2023-06-27] MEDS: PROTONIX TAB 40 MG PO SCH (09:14)
[2023-06-27] MEDS: DIFLUCAN PO SCH (09:14)
[2023-06-27] MEDS: MAG-OX TAB PO SCH ×2 (09:14→20:19)
[2023-06-27] MEDS: PLAQUENIL PO SCH ×2 (09:14→20:20)
[2023-06-27] MEDS: LASIX PO SCH (09:14)
[2023-06-27] MEDS: SINEMET CR 50/200 MG PO SCH ×4 (09:14→20:20)
[2023-06-27] MEDS: VSL#3 PO SCH (09:14)
[2023-06-27] MEDS: ASPIRIN EC 81 MG PO SCH (09:14)
[2023-06-27] MEDS: HEMOCYTE-PLUS PO SCH (09:14)
[2023-06-27] MEDS: MICRO K EXTEN CAP 10 MEQ PO SCH (09:15)
[2023-06-27 20:15] VITALS: BP 103/58; RESP 20; TEMP 97.9
[2023-06-27] MEDS: COLACE CAP 100 MG PO SCH (20:19)
[2023-06-27] MEDS: CRESTOR TAB 10 MG PO SCH (20:19)
[2023-06-28 05:16] LABS: BASOPHILS # (AUTO) 0.2 X10^3/uL (0.0-0.1); BASOPHILS % (AUTO) 1.5 % (0.2-1.0); EOSINOPHILS # (AUTO) 0.2 x10^3/uL (0.0-0.2); EOSINOPHILS % (AUTO) 1.6 % (0.9-2.9); HEMATOCRIT 29.2 % (36.0-47.0); HEMOGLOBIN 9.6 g/dL (12.0-16.0); LYMPHOCYTES # (AUTO) 4.8 X10^3/uL (1.3-2.9); LYMPHOCYTES % (AUTO) 32.4 % (21.0-51.0); MEAN CORPUSCULAR HEMOGLOBIN 28.1 pg (27.0-34.0); MEAN PLATELET VOLUME 9.6 fL (7.4-11.0); MONOCYTES # (AUTO) 1.8 x10^3/uL (0.3-0.8); MONOCYTES % (AUTO) 11.8 % (0.0-13.0); NEUTROPHILS # (AUTO) 7.8 x10^3/uL (2.2-4.8); NEUTROPHILS % (AUTO) 52.7 % (42.0-75.0); PLATELET COUNT 357 X10^3/uL (150.0-450.0); RED BLOOD COUNT 3.43 X10^6/uL (3.5-5.4); RED CELL DISTRIBUTION WIDTH 17.6 % (11.6-16.5); WHITE BLOOD COUNT 14.8 X10^3/uL (3.6-10.0)
[2023-06-28 05:29] LABS: ALANINE AMINOTRANSFERASE < 6 Units/L (12-78); ALBUMIN 2.6 g/dL (3.4-5.0); ALKALINE PHOSPHATASE 295 Units/L (46-116); ASPARTATE AMINO TRANSFERASE 43 Units/L (15-37); BLOOD UREA NITROGEN 25 mg/dL (7-18); CALCIUM 8.2 mg/dL (8.5-10.1); CARBON DIOXIDE 32.4 mmol/L (21-32); CHLORIDE 108 mmol/L (98-107); COR CA(FOR HYPOALB) 9.3 mg/dL (8.5-10.1); CREATININE 1.31 mg/dL (0.55-1.02); GLUCOSE 90 mg/dL (65-99); POTASSIUM 4.1 mmol/L (3.5-5.1); SODIUM 142 mmol/L (136-145); TOTAL PROTEIN 5.2 g/dL (6.4-8.2); eGFR NON BLACK RACES 42 (>60)
[2023-06-28] MEDS: PULMICORT NEB TX 0.5 MG NEB SCH (09:00)
[2023-06-28 09:02] VITALS: PULSE 88; O2SAT 97
[2023-06-28] MEDS: PLAQUENIL PO SCH (09:08)
[2023-06-28] MEDS: DIFLUCAN PO SCH (09:09)
[2023-06-28] MEDS: PROTONIX TAB 40 MG PO SCH (09:09)
[2023-06-28] MEDS: VITAMIN D3 25 mcg (1,000 UNITS) PO SCH (09:09)
[2023-06-28] MEDS: SINEMET CR 50/200 MG PO SCH ×2 (09:10→14:02)
[2023-06-28] MEDS: LASIX PO SCH (09:12)
[2023-06-28] MEDS: VSL#3 PO SCH (09:12)
[2023-06-28] MEDS: MICRO K EXTEN CAP 10 MEQ PO SCH (09:13)
[2023-06-28] MEDS: HEMOCYTE-PLUS PO SCH (09:13)
[2023-06-28] MEDS: MAG-OX TAB PO SCH (09:13)
[2023-06-28] MEDS: ASPIRIN EC 81 MG PO SCH (09:13)
[2023-06-28] MEDS ORDERED: DULCOLAX SUPPOSITORY 10 MG RECTAL ONE (09:33)
[2023-06-28] MEDS: PERIACTIN TAB 4 MG PO SCH ×2 (10:11→14:02)
== END 2023-06-28 17:10 | disposition home health service (06) | DRG 291 ==
LOC: MED/SURG 19:11
PROVIDERS: ADMIT Internal Medicine; ATTEND Internal Medicine
DX: R26.89 Other abnormalities of gait and mobility; G20 Parkinson's disease; Z51.89 Encounter for other specified aftercare; N17.8 Other acute kidney failure; G25.81 Restless legs syndrome; E78.2 Mixed hyperlipidemia; D50.8 Other iron deficiency anemias; I11.0 Hypertensive heart disease with heart failure; E83.42 Hypomagnesemia; R06.02 Shortness of breath; F05 Delirium due to known physiological condition; R53.1 Weakness; I50.9 Heart failure, unspecified; M79.7 Fibromyalgia; J18.8 Other pneumonia, unspecified organism